=== PATIENT | female | born 1930 | race Caucasian/White ===

== ENCOUNTER 2016-10-04 10:53 | Inpatient (IN) | payer MEDICARE, OTHER ==
[~2016-10-04] VITALS: Ht 162.6 cm; Wt 85.4 kg
[~2016-10-04 10:53] MED LIST: ATOR20TA38 PO; GABA300S PO; LEVO300T5 PO; LISI10TA2 PO; METF-406 PO; SITA50TA2 PO; TRAM100T2 PO; ZETIA; [UNRECOGNIZED DRUG - CODE] PO
--- NOTE | 2016-10-04 11:31 | ERA ---
ER Documentation Chief Complaint Date/Time DATE: 10/04/16 TIME: 11:30 Chief Complaint BIB RA FROM SNF. C/O CP. HPI The patient is a 86-year-old female, presenting to the ER because of substernal chest pain that began about 2 hours prior to arrival. She denies similar symptoms previously, no radiation, not associated with dyspnea, palpitation, diaphoresis, vomiting. She denies fever, chills, neck pain, abdominal pain, vomiting, dysuria, diarrhea. She does not smoke nor drink Past medical history: History of CVA with left hemiparesis, hypertension, dyslipidemia, hypothyroidism, diabetes mellitus, dementia Past surgical history: Appendectomy ROS All systems reviewed and are negative except as per history of present illness. Medications Home Meds Reported Medications [Zetia] No Conflict Check, 10 DAILY 11/11/12 Tramadol Hcl* (Tramadol* ER) 100 Mg Tab.er.24h, 50 MG PO Q6 Y 11/11/12 Metformin Hcl* (Metformin Hcl* ER) 1,000 Mg Tab.er.24, 1000 MG PO BID 11/11/12 Lisinopril* (Lisinopril*) 10 Mg Tablet, 10 MG PO DAILY 11/11/12 Levothyroxine Sodium* (Levothyroxine Sodium*) 300 Mcg Tablet, 150 MCG PO DAILY 11/11/12 Sitagliptin* (Januvia*) 50 Mg Tablet, 50 MG PO DAILY 11/11/12 Gabapentin (GABAPENTIN) 300 Mg/6 Ml Solution, 300 MG PO BID 11/11/12 Calcium Carbonate (CALCIUM CARBONATE) 400 Mg Tab.chew, 500 MG PO Q4 Y 11/11/12 Atorvastatin Calcium* (Atorvastatin Calcium*) 20 Mg Tablet, 10 MG PO HS 11/11/12 Allergies Allergies: Coded Allergies: Penicillins (Verified Allergy, Mild, 11/14/12) PMhx/Soc History of Surgery: No Anesthesia Reaction: No Hx Neurological Disorder: No Hx Respiratory Disorders: No Hx Cardiac Disorders: Yes (TIA ,HTN, high cholesterol) Hx Psychiatric Problems: Yes (confused) Hx Alcohol Use: No Hx Substance Use: No Hx Tobacco Use: No Physical Exam Vitals Vital Signs Date Time Temp Pulse Resp B/P Pulse Ox O2 Delivery O2 Flow Rate FiO2 10/04/16 11:20 99.0 86 18 156/136 92 Physical Exam Const: No acute distress. Head: Atraumatic. Eyes: Normal Conjunctiva. ENT: Normal External Ears, Nose and Mouth. Neck: Full range of motion. No meningismus. Resp: Clear to auscultation bilaterally. Cardio: Regular rate and rhythm, no murmurs. Abd: Soft, non distended, normal bowel sounds, non tender. Skin: No petechiae or rashes. Back: No midline or flank tenderness. Ext: No cyanosis, or edema. Neur: Awake and alert. Left hemiparalysis Psych: Normal Mood and Affect. Result Diagram: 10/04/16 1200 Results 24 hrs Laboratory Tests Test 10/04/16 12:00 White Blood Count 11.110^3/ul Red Blood Count 3.7810^6/ul Hemoglobin 11.2g/dl Hematocrit 34.0% Mean Corpuscular Volume 89.9fl Mean Corpuscular Hemoglobin 29.6pg Mean Corpuscular Hemoglobin Concent 32.9g/dl Red Cell Distribution Width 15.1% Platelet Count 53623^3/UL Mean Platelet Volume 9.2fl Neutrophils % 72.5% Lymphocytes % 16.1% Monocytes % 9.5% Eosinophils % 0.7% Basophils % 0.3% Nucleated Red Blood Cells % 0.0/100WBC Neutrophils # 8.110^3/ul Lymphocytes # 1.810^3/ul Monocytes # 1.110^3/ul Eosinophils # 0.110^3/ul Basophils # 0.010^3/ul Nucleated Red Blood Cells # 0.010^3/ul Prothrombin Time 14.0Sec Prothrombin Time Ratio 1.1 INR International Normalized Ratio 1.08 Activated Partial Thromboplast Time 41.0Sec Creatine Kinase 149IU/L Creatine Kinase Index 0.3 Creatinine Kinase MB (Mass) 0.49ng/ml Troponin I < 0.012ng/ml Current Medications Medications (Trade) Dose Ordered Sig/Alisha Route PRN Reason Start Time Stop Time Status Last Admin Dose Admin Aspirin (Aspirin) 325 mg ONCE ONCE PO 10/04/16 13:30 10/04/16 13:31 Nitroglycerin (Nitroglycerin 2% Oint) 1 inch ONCE ONCE TD 10/04/16 13:30 10/04/16 13:31 Procedures/[place] [id number] Radiology Main Line: [phone] DIAGNOSTIC IMAGING REPORT Patient: JOSH DAVALOS : 1930 Age: 86 Sex: F MR #: [id number] DOS: 10/04/16 1133 Ordering MD: DARLENE ALVARENGA MD Location: E/R Room/Bed: PROCEDURE: XR Chest. CLINICAL INDICATION: Chest pain TECHNIQUE: Chest AP portable. COMPARISON: 11/11/2012 FINDINGS: The mediastinal structures are unremarkable. There is calcification of the thoracic aorta (consistent with atherosclerosis). There is mild to moderate cardiomegaly. There is mild pulmonary venous hypertension. No consolidation is identified. The pleural spaces are unremarkable. There are senescent changes of the axial skeleton. IMPRESSION: Mild to moderate cardiomegaly. Mild pulmonary venous hypertension. RPTAT: HGDB .Derrick Saeed MD, MD Date Time Electronically viewed and signed by .Derrick Saeed MD, on 10/04/2016 13:00 .B/ CC: DARLENE ALVARENGA MD MEDICAL MAKING DECISION: The patient is a 86-year-old female, with multiple cardiac risk factors, presenting with acute chest pain that is concerning for ACS. She was treated with aspirin 325 mg p.o. and 1 inch of nitroglycerin ointment with good response. The differential diagnoses considered include but are not limited to acute coronary syndrome, acute myocardial infarction, pericarditis, pulmonary embolism, aortic dissection, pneumonia, pleural effusion , pneumothorax, GERD, chest wall pain. Departure Diagnosis: Primary Impression: Chest pain Additional Impression: Anemia Condition: Stable Comments I discussed the findings with the patient. I discussed the patient with the on- call hospitalist Dr. Angelia Medina who was made aware of the lab, the treatment, the patient condition. The patient is admitted to telemetry at 1 PM DARLENE ALVARENGA MD Oct 04, 2016 11:30
[2016-10-04 12:13] LABS: ADD SCAN DIFF NO
[2016-10-04 12:16] LABS: BASOPHILS % 0.3 % (0.0-2.0); EOSINOPHILS # 0.1 10^3/ul (0.0-0.5); EOSINOPHILS % 0.7 % (0.0-7.0); HEMOGLOBIN 11.2 g/dl (12.0-16.0); LYMPHOCYTES # 1.8 10^3/ul (0.8-2.9); LYMPHOCYTES % 16.1 % (15.0-51.0); MEAN CORPUSCULAR HEMOGLOBIN 29.6 pg (29.0-33.0); MEAN CORPUSCULAR HGB CONC 32.9 g/dl (32.0-37.0); MEAN CORPUSCULAR VOLUME 89.9 fl (82.0-101.0); MEAN PLATELET VOLUME 9.2 fl (7.4-10.4); MONOCYTE # 1.1 10^3/ul (0.3-0.9); MONOCYTES % 9.5 % (0.0-11.0); NEUTROPHIL # 8.1 10^3/ul (1.6-7.5); NEUTROPHILS % 72.5 % (39.0-77.0); PLATELET COUNT 263 10^3/UL (140-415); RED BLOOD COUNT 3.78 10^6/ul (4.20-5.40); RED CELL DISTRIBUTION WIDTH 15.1 % (11.5-14.5); WHITE BLOOD COUNT 11.1 10^3/ul (4.8-10.8)
[2016-10-04 12:31] LABS: CREATINE KINASE 149 IU/L (23-200)
[2016-10-04 12:41] LABS: CK-MB 0.49 ng/ml (0.0-2.4)
[2016-10-04 12:46] LABS: TROPONIN-I < 0.012 ng/ml (0.00-0.12)
[2016-10-04 12:52] LABS: INR 1.08; PT RATIO 1.1
--- NOTE | 2016-10-04 13:00 | RADRPT ---
PROCEDURE: XR Chest. CLINICAL INDICATION: Chest pain TECHNIQUE: Chest AP portable. COMPARISON: 11/11/2012 FINDINGS: The mediastinal structures are unremarkable. There is calcification of the thoracic aorta (consiste nt with atherosclerosis). There is mild to moderate cardiomegaly. There is mild pulmonary venous h ypertension. No consolidation is identified. The pleural spaces are unremarkable. There are senes cent changes of the axial skeleton. IMPRESSION: Mild to moderate cardiomegaly. Mild pulmonary venous hypertension. RPTAT: HGDB .Derrick Saeed MD, MD Date Time Electronically viewed and signed by .Derrick Saeed MD, MD on 10/04/2016 13:00 .B/
[2016-10-04 13:13] LABS: ALBUMIN 3.8 g/dl (3.3-4.9)
[2016-10-04 13:14] LABS: POTASSIUM 4.6 mmol/L (3.5-5.1)
[2016-10-04 13:16] LABS: ALBUMIN/GLOBULIN RATIO 1.02; BILIRUBIN,INDIRECT 0.2 mg/dl (0-1.1); BILIRUBIN,TOTAL 0.2 mg/dl (0.2-1.3); CREATININE 0.88 mg/dl (0.44-1.00); TOTAL PROTEIN 7.5 g/dl (6.1-8.1)
[2016-10-04 13:17] LABS: CALCIUM 9.2 mg/dl (8.4-10.2)
[2016-10-04] MEDS ORDERED: ASPIRIN 325 MG TAB PO ONE (13:30)
[2016-10-04] MEDS ORDERED: NITROGLYCERIN 2% 1 GM OINT PKT TD ONE (13:30)
[2016-10-04] MEDS ORDERED: MULT-105 PO (13:44)
[2016-10-04] MEDS ORDERED: FER325 PO (13:44)
[2016-10-04] MEDS ORDERED: EZET10TA3 PO (13:45)
[2016-10-04] MEDS ORDERED: LEVO175T2 PO (13:46)
[2016-10-04] MEDS ORDERED: LINA5TAB PO (13:47)
[2016-10-04] MEDS ORDERED: GABA300C16 PO (13:48)
[2016-10-04] MEDS ORDERED: HEPA500021 IJ (13:48)
[2016-10-04] MEDS ORDERED: MAGN400O4 PO (13:50)
[2016-10-04] MEDS ORDERED: ACET-2047 PO (13:51)
[2016-10-04] MEDS ORDERED: SOD CHLORIDE 0.9% 500 ML IV ONE ×2 (15:00→18:00)
[2016-10-04 15:32] VITALS: TEMP 98.2
[2016-10-04] MEDS ORDERED: BISACODYL 10 MG SUPP PR PRN (16:00)
[2016-10-04] MEDS ORDERED: NITROGLYCERIN (SL) 0.4 MG TAB SL PRN (16:00)
[2016-10-04] MEDS ORDERED: ONDANSETRON 4 MG TAB PO PRN (16:00)
[2016-10-04] MEDS ORDERED: morphine 2 MG INJ IV PRN (16:00)
[2016-10-04] MEDS ORDERED: NACL 0.9% 3 ML SYG IV SCH (16:00)
[2016-10-04] MEDS ORDERED: ACETAMINOPHEN 325 MG TAB PO PRN (16:00)
[2016-10-04 16:27] LABS: CREATINE KINASE 140 IU/L (23-200)
[2016-10-04 16:36] LABS: CK-MB 0.33 ng/ml (0.0-2.4)
[2016-10-04 16:44] LABS: TROPONIN-I < 0.012 ng/ml (0.00-0.12)
[2016-10-04] MEDS ORDERED: GLUCAGON 1 MG INJ IM PRN (17:00)
[2016-10-04] MEDS ORDERED: SOD CHLORIDE 0.9% 1,000 ML IV ONE (17:00)
[2016-10-04] MEDS ORDERED: DEXTROSE 50% 50 ML SYRINGE IV PRN ×2 (17:00)
[2016-10-04] MEDS ORDERED: GLUCOSE GEL 15 GRAM TUBE PO PRN ×2 (17:00)
[2016-10-04] MEDS ORDERED: GLUCOSE GEL 15 GRAM TUBE BUCCAL PRN (17:00)
[2016-10-04 17:04] LABS: URINE BLOOD (Dip) POC Trace-intact (NEGATIVE)
[2016-10-04 17:05] LABS: URINE BLOOD (Dip) POC Trace-intact (NEGATIVE)
[2016-10-04 17:06] LABS: URINE BLOOD (Dip) POC Trace-intact (NEGATIVE)
[2016-10-04] MEDS ORDERED: CIPROFLOXACIN 400MG/D5W 200 ML IVPB ONE (17:30)
[2016-10-04] MEDS: metFORMIN (XR) 500 MG TAB PO SCH (18:00)
[2016-10-04] MEDS ORDERED: LEVOFLOXACIN 500MG/D5W (PMX) 100 ML IVPB ONE (18:30)
[2016-10-04] MEDS ORDERED: SOD CHLORIDE 0.9% 1,000 ML IV SCH (18:30)
--- NOTE | 2016-10-04 18:58 | HP ---
DATE OF ADMISSION: 10/04/2016 SHEAR OPERATOR: Dr. Raoul Underwood, supervisor fertilizer. CHIEF COMPLAINT: Shortness of breath. HISTORY OF PRESENT ILLNESS: This is an 86-year-old female with past medical history of CVA, essenti al hypertension, dyslipidemia, hypothyroidism, diabetes mellitus, neuropathy, history of thyroid nod ule, bedbound who resides at senior living facility and was transferred to [facility] secondary to complaint of having chest discomfort. Upon evaluation in the course of the emerg ency room, the patient's EKG demonstrated normal sinus rhythm, ventricular rate of 80, no ST elevati on or T inversion. No sign of ischemia. Troponin was found to be negative. The patient was treate d with a dose of aspirin, normal saline and nitroglycerin. At this time, patient denies having any chest pain, shortness of breath, nausea, vomiting, diarrhea. No headache, dizziness, lightheadednes s or any other discomfort. Notation, patient is very poor historian. Great amount of information w as obtained from the ER note and the nurse notes and previous hospital notes. PAST MEDICAL AND SURGICAL HISTORY: 1. Dyslipidemia. 2. CVA. 3. Iron deficiency anemia. 4. Neuropathy. 5. Hypothyroidism. 6. Diabetes mellitus. 7. History of hypertension. MEDICATIONS: 1. Tylenol. 2. Lipitor. 3. Zetia. 4. Ferrous sulfate. 5. Gabapentin. 6. Heparin. 7. Synthroid. 8. Tradjenta. 9. Milk of magnesia. 10. Metformin. 11. Multivitamin. ALLERGIES: 1. PENICILLIN. 2. ADHESIVE TAPE. SOCIAL HISTORY: She resides at senior living facility. Negative x3 for smoking, alcohol, illicit drugs. FAMILY HISTORY: Noncontributory secondary to advanced age. REVIEW OF SYSTEMS: As above per HPI. Positive for chest pain which has resolved by time patient ar rived to emergency room. No shortness of breath. The patient is wheelchair bound. No headache, di zziness. No change in visual acuity. No abdominal pain, no change in appetite. Otherwise, the 12 review of systems have been found to be negative. PHYSICAL EXAMINATION: VITAL SIGNS: Temperature 98.2, pulse 72, respirations 18, blood pressure 94/63 and 69/51, oxygen sa turation 95% on 2 L via nasal cannula. GENERAL APPEARANCE: The patient is lying in bed comfortably without any distress. She is awake, al ert, oriented. She is able to answer my questions properly. EYES, EARS, NOSE, THROAT: Conjunctivae, lids are normal. Pupils are normal. Extraocular normal. Hearing grossly normal. Lips, teeth and gums normal. Oral mucosa mildly dry. NECK: Supple. Trachea is midline. No lymphadenopathy. RESPIRATORY: Effort is normal. Clear to auscultation bilaterally. CARDIOVASCULAR: Normal S1, S2. Regular rhythm, rate. No murmur, no bruits, no edema. Peripheral pulses, radial pulses palpable. Capillary refill is normal. CHEST: Normal expansion of thorax during inspiration. GASTROINTESTINAL: Abdomen soft, nontender, not distended. Bowel sounds are present. No guarding, rebound. GENITOURINARY: Deferred. MUSCULOSKELETAL: Upper, lower extremities within normal limits. Trace edema, bilateral lower extre mities. NEUROLOGIC: She is awake, alert, able to follow commands. LABORATORY WORK: Sodium 135, potassium 4.6, chloride 97, bicarbonate 23, BUN 27, creatinine 0.88, g lucose 112, calcium 9.2. LFTs all within normal limits. Troponin negative x2. Globulin 3.70. Lip ase 114. WBC 11.1, hemoglobin 11.2, hematocrit 34.0, platelets 263. ELECTROCARDIOGRAM: Normal sinus rhythm. No acute ST elevation or depression, no sign of ischemia. CHEST X-RAY: Mild to moderate cardiomegaly, mild pulmonary venous hypertension. ASSESSMENT AND PLAN: 1. Atypical chest pain which has resolved. The patient has been placed on aspirin. Cardiology has been consulted. Will obtain 2D echocardiogram. Nitroglycerin. Follow cardiology recommendation. 2. Dyslipidemia. Continue statin. 3. Diabetes mellitus. Continue Tradjenta and metformin. 4. Hypotension. Place the patient on IV fluid. 5. Hypothyroidism. Continue levothyroxine, follow up thyroid panel in a.m. 6. Will continue to monitor patient closely. Further recommendations, management and treatment as per clinical course. 7. For deep venous thrombosis prophylaxis, on heparin. Dictated By: DANETTE JUAREZ MD PN/NTS Conf#: [id number] DID#: [id number]
[2016-10-04 20:26] VITALS: PULSE 74
[2016-10-04 20:33] VITALS: BP 149/64; RESP 18
--- NOTE | 2016-10-04 20:52 | CONS ---
DATE OF ADMISSION: 10/04/2016 DATE OF CONSULTATION: 10/04/2016 TYPE OF CONSULTATION: Cardiology. REFERRING PHYSICIAN: Dr. Galan REASON FOR EVALUATION: Chest pain. HISTORY OF PRESENT ILLNESS: Ms. Fernandez is an 86-year-old woman with history of hypertension, dysli pidemia, history of thyroid disease, prior history of CVA with left-sided hemiparesis and diabetes a s well as dementia, comes to the hospital for evaluation of chest pain. The patient is not a very c onsistent historian, but apparently there has been substernal chest pain lasting for about 2 hours p rior to arrival. The patient's EKG shows some nonspecific ST changes but no true signs of ischemia. For now, the patient does not appear to have ruled in for acute myocardial infarction. For now, c onservative therapy is expected. Will continue to optimize her fluid status and going to add beta b locker to her regimen if she can tolerate it. Other than that, risk stratification will be likely r equired. I'll see if the patient had recent risk stratification. If not, will consider a stress te st while she is here in the hospital. ALLERGIES: PENICILLIN. SOCIAL HISTORY: The patient does not smoke, does not drink, does not use any drugs. FAMILY HISTORY: Negative for sudden cardiac or premature coronary artery disease. MEDICATIONS AT HOME: Include: 1. Zetia 10 mg per day. 2. Tramadol 100 mg p.o. once a day. 3. Metformin 1 gram p.o. b.i.d. 4. Lisinopril 10 mg p.o. once a day. 5. Levothyroxine 150 mcg ____. 6. Sitagliptin. 7. Gabapentin. 8. Calcium carbonate. 9. Atorvastatin 20 mg p.o. once a day in addition to Zetia. REVIEW OF SYSTEMS: CONSTITUTIONAL: The patient has no fevers, no chills, no recent weight changes. HEENT: No change in vision or hearing. CARDIAC: Chest pain as described. RESPIRATORY: ____ short of breath. GASTROINTESTINAL: No nausea, vomiting, diarrhea, constipation. GENITOURINARY: No dysuria, hematuria. NEUROLOGIC: History ____ CVA. PSYCHIATRIC: History of depression. PHYSICAL EXAMINATION: VITAL SIGNS: Temperature is 98.2, heart rate 73, blood pressure 95/64. GENERAL: She is an obese woman. No acute distress. Alert, oriented times 2 to 3, somewhat aware o f her condition. HEAD: Normocephalic, atraumatic. EYES: Anicteric. NECK: Supple. JVD 6-7 cm. There is no lymphadenopathy. HEART: Regular with soft ____ murmur ____. There is no S3. LUNGS: Coarse at bases. ABDOMEN: Distended. Bowel sounds are present. There is no hepatosplenomegaly. GENITOURINARY: Intact. EXTREMITIES: No ____ trace edema. SKIN: ____. NEUROLOGICAL: She is able to move her extremities. LABORATORY DATA: White blood cells 11.1, hemoglobin 11.2, platelets 263. INR is 1.1. Sodium 135, potassium 4.6. Her BUN is 27, creatinine 0.8. Troponin is negative at 0.012. ASSESSMENT AND PLAN: 1. The patient with history of chest pain. She has multiple risk factors for coronary artery disea se. Will advise ischemic risk stratification while the patient is in the hospital. Stress test to follow. 2. Hypertension. Blood pressure modestly well controlled. Will see if she can tolerate a small do se of a beta justa. Other than that, conservative therapy and stress test advisable for now. 3. Obesity. Significant weight loss advised. 4. Diabetes. Continue diabetic optimization care per primary team. Will follow expectantly. 5. Hypertension. Blood pressure modestly well controlled. Will add beta justa now. 6. Abnormal electrocardiogram, nonspecific ST-T changes noted. Troponins are negative. Stress aníbal t to follow. I would like to thank Dr. Galan for referring this patient for my evaluation. Dictated By: MARIANNE CRISTOBAL MD ML/ADELITA Conf#: [id number] DID#: [id number]
[2016-10-04] MEDS: INSULIN ASPART [NOVOLOG] 3 ML PEN SC SCH (22:00)
[2016-10-04 22:01] LABS: AADO2 Arterial 42.6 mmHg (7.0-24.0); Allen Test ACCEPTAB; Arterial Base Excess -2.5 mmol/L (-3.0-3); Arterial COHb 0.3 % (0.0-3.0); Arterial Fraction of Oxyhgb 97.1 % (93.0-99.0); Arterial HCO3 21.6 mmol/L (22.0-26.0); Arterial MetHb 0.3 % (0.0-1.5); Arterial Total Hemglobin 10.3 g/dl (12.0-18.0); MODE NASAL CANNULA
[2016-10-04] MEDS: ATORVASTATIN 10 MG TAB PO SCH (22:05)
[2016-10-04] MEDS: GABAPENTIN 300 MG CAP PO SCH (22:05)
[2016-10-04] MEDS: HEPARIN 5,000 UNIT/0.5 ML VIAL SC SCH (22:07)
[2016-10-04 22:52] LABS: CREATINE KINASE 109 IU/L (23-200)
[2016-10-04 22:59] LABS: CK-MB 0.38 ng/ml (0.0-2.4)
[2016-10-04 23:04] VITALS: Ht 162.6 cm; Wt 85.4 kg
[2016-10-04 23:27] LABS: TROPONIN-I < 0.012 ng/ml (0.00-0.12)
[2016-10-04] MEDS: SOD CHLORIDE 0.9% 1,000 ML IV SCH (23:58)
[2016-10-05] VITALS (10 sets, daily range): BP systolic 102–164; BP diastolic 47–78; PULSE 59–73; RESP 16–18
[2016-10-05] MEDS: ACCU-CHEK XX SCH (02:00)
[2016-10-05 05:48] LABS: ADD SCAN DIFF NO
[2016-10-05 05:56] LABS: BASOPHILS % 0.1 % (0.0-2.0); EOSINOPHILS # 0.1 10^3/ul (0.0-0.5); EOSINOPHILS % 1.2 % (0.0-7.0); HEMOGLOBIN 9.3 g/dl (12.0-16.0); LYMPHOCYTES # 1.4 10^3/ul (0.8-2.9); LYMPHOCYTES % 16.5 % (15.0-51.0); MEAN CORPUSCULAR HEMOGLOBIN 29.1 pg (29.0-33.0); MEAN CORPUSCULAR VOLUME 93.8 fl (82.0-101.0); MEAN PLATELET VOLUME 9.1 fl (7.4-10.4); MONOCYTE # 0.7 10^3/ul (0.3-0.9); MONOCYTES % 8.7 % (0.0-11.0); NEUTROPHIL # 6.1 10^3/ul (1.6-7.5); NEUTROPHILS % 72.4 % (39.0-77.0); PLATELET COUNT 237 10^3/UL (140-415); RED CELL DISTRIBUTION WIDTH 15.1 % (11.5-14.5); WHITE BLOOD COUNT 8.4 10^3/ul (4.8-10.8)
[2016-10-05] MEDS: PANTOPRAZOLE (EC) 40 MG TAB PO SCH (06:00)
[2016-10-05 06:12] LABS: POTASSIUM 4.3 mmol/L (3.5-5.1)
[2016-10-05 06:14] LABS: CREATININE 0.81 mg/dl (0.44-1.00)
[2016-10-05 06:15] LABS: CALCIUM 8.1 mg/dl (8.4-10.2)
[2016-10-05 06:16] LABS: CHOL/HDL RATIO 2.7 RATIO; MAGNESIUM 1.3 mg/dl (1.7-2.5)
[2016-10-05 06:26] LABS: CK-MB 0.37 ng/ml (0.0-2.4); CREATINE KINASE 84 IU/L (23-200)
[2016-10-05 06:34] LABS: TROPONIN-I < 0.012 ng/ml (0.00-0.12)
[2016-10-05 06:40] LABS: THYROID STIMULATING HORMONE 9.62 MIU/L (0.465-4.680)
[2016-10-05] MEDS ORDERED: LEVOTHYROXINE 175 MCG TAB PO SCH (07:00)
[2016-10-05] MEDS: metFORMIN (XR) 500 MG TAB PO SCH ×2 (08:00→18:18)
[2016-10-05] MEDS: INSULIN ASPART [NOVOLOG] 3 ML PEN SC SCH ×4 (08:00→21:00)
[2016-10-05] MEDS: SOD CHLORIDE 0.9% 1,000 ML IV SCH ×2 (08:33→22:10)
[2016-10-05] MEDS: FERROUS SULFATE (EC) 325 MG TAB PO SCH (08:34)
[2016-10-05] MEDS: MAGNESIUM HYDROXIDE 30ML CUP PO SCH (08:34)
[2016-10-05] MEDS: ASPIRIN 81 MG TAB PO SCH (08:34)
[2016-10-05] MEDS: MULTIVITAMINS/MINERALS TAB PO SCH (08:34)
[2016-10-05] MEDS: GABAPENTIN 300 MG CAP PO SCH ×2 (08:34→21:30)
[2016-10-05] MEDS: LINAGLIPTIN 5 MG TABLET PO SCH (08:35)
[2016-10-05] MEDS: EZETIMIBE 10 MG TAB PO SCH (08:35)
[2016-10-05] MEDS: HEPARIN 5,000 UNIT/0.5 ML VIAL SC SCH ×2 (08:38→21:47)
--- NOTE | 2016-10-05 11:31 | PN ---
Date/Time of Note Date/Time of Note DATE: 10/05/16 TIME: 11:23 Assessment/Plan VTE Prophylaxis VTE Prophylaxis Intervention: SCD's Lines/Catheters IV Catheter Type (from Rust): Saline Lock Urinary Cath still in place: No Assessment/Plan Chief Complaint/Hosp Course ASSESSMENT AND PLAN: - Chest pain. Dr. Goldsmith is following and cardiology consultation. Cardiac enzymes are negative 3. Pending stress test today. Will obtain 2D echo to evaluate ejection fraction. - Dyslipidemia. Continue statin. - Diabetes mellitus. Continue Tradjenta and metformin. - Hypothyroidism. Continue levothyroxine. TSH is elevated will check T4 patient with history of refusing medication, would not increase the dose of levothyroxine at this time. - History of stroke with left-sided hemiplegia. Continue aspirin. - Systemic inflammatory response syndrome with leukocytosis, follow-up on urine culture. - Hypomagnesemia, will replace magnesium. Continue heparin for deep venous thrombosis prophylaxis. Further recommendations based on clinical course. Plan of care discussed with Dr. Stanley. Problems: Subjective 24 Hr Interval Summary Free Text/Dictation Patient is awake alert, confused at baseline, no nausea vomiting no fever reported per RN. Exam/Review of Systems Vital Signs Vitals Vital Signs Date Time Temp Pulse Resp B/P Pulse Ox O2 Delivery O2 Flow Rate FiO2 10/05/16 08:43 98.0 70 16 110/55 92 10/05/16 08:00 Nasal Cannula 2.0 Intake and Output 10/04/16 10/04/16 10/05/16 15:00 23:00 07:00 Intake Total 1000 ml 715 ml Balance 1000 ml 715 ml Exam Constitutional: alert, frail, obese Psych: confusion, other (Demented) Head: atraumatic, normocephalic ENMT: nl external ears & nose, nl nasal mucosa & septum Neck: supple Respiratory: clear to auscultation, wheezing Cardiovascular: nl pulses, regular rate and rhythm Gastrointestinal: non-tender, soft Genitourinary - Female: nl adnexae Musculoskeletal: nl extremities to inspection Extremities: normal pulses Neurological: confused Skin: other (Left-sided hemiplegia) Results Result Diagram: 10/05/16 0517 10/05/16 0517 Results 24 hrs Laboratory Tests Test 10/04/16 12:00 10/04/16 15:59 10/04/16 17:04 10/04/16 19:45 White Blood Count 11.1 H Red Blood Count 3.78 L Hemoglobin 11.2 L Hematocrit 34.0 L Mean Corpuscular Volume 89.9 Mean Corpuscular Hemoglobin 29.6 Mean Corpuscular Hemoglobin Concent 32.9 Red Cell Distribution Width 15.1 H Platelet Count 263 Mean Platelet Volume 9.2 Neutrophils % 72.5 Lymphocytes % 16.1 Monocytes % 9.5 Eosinophils % 0.7 Basophils % 0.3 Nucleated Red Blood Cells % 0.0 Neutrophils # 8.1 H Lymphocytes # 1.8 Monocytes # 1.1 H Eosinophils # 0.1 Basophils # 0.0 Nucleated Red Blood Cells # 0.0 Prothrombin Time 14.0 Prothrombin Time Ratio 1.1 INR International Normalized Ratio 1.08 Activated Partial Thromboplast Time 41.0 H Sodium Level 135 Potassium Level 4.6 Chloride Level 97 Carbon Dioxide Level 23 Anion Gap 20 H Blood Urea Nitrogen 27 H Creatinine 0.88 Glucose Level 112 Calcium Level 9.2 Total Bilirubin 0.2 Direct Bilirubin 0.00 Indirect Bilirubin 0.2 Aspartate Amino Transf (AST/SGOT) 20 Alanine Aminotransferase (ALT/SGPT) 17 Alkaline Phosphatase 80 Creatine Kinase 149 140 Creatine Kinase Index 0.3 0.2 Creatinine Kinase MB (Mass) 0.49 0.33 Troponin I < 0.012 < 0.012 Total Protein 7.5 Albumin 3.8 Globulin 3.70 H Albumin/Globulin Ratio 1.02 Lipase 114 Bedside Urine pH (LAB) 7.5 Bedside Urine Protein (LAB) 1+ H Bedside Urine Glucose (UA) 0.25% H Bedside Urine Ketones (LAB) Negative Bedside Urine Blood Trace-intact H Bedside Urine Nitrite (LAB) Negative Bedside Urine Leukocyte Esterase (L 1+ H Lactic Acid Level 4.2 *H Test 10/04/16 20:45 10/04/16 22:01 10/04/16 22:28 10/05/16 00:50 Blood Gas Specimen Source Blood arterial Arterial Blood Date Drawn 10/04/2016 9:45:58 PM Arterial Blood pH (Temp corrected) 7.411 Arterial Blood pCO2 (Temp correct) 34.8 L Arterial Blood pO2 (Temp corrected) 108.8 H Arterial Blood HCO3 21.6 L Arterial Blood Base Excess -2.5 Arterial Blood Oxygen Saturation 97.7 Ortega Test ACCEPTAB Arterial Blood Gas Puncture Site Left Radial Arterial Blood Carboxyhemoglobin 0.3 Arterial Blood Methemoglobin 0.3 Blood Gas A-a O2 Differential 42.6 H Oxyhemoglobin Percent 97.1 Total Hemoglobin 10.3 L Blood Gas Temperature 37.0 Blood Gas Modality NASAL CANNULA FiO2 27.0 Blood Gas Notified Whom KM Blood Gas Notified Time 10/04/2016 10:00:35 PM Lactic Acid Level 1.4 1.8 Creatine Kinase 109 Creatine Kinase Index 0.3 Creatinine Kinase MB (Mass) 0.38 Troponin I < 0.012 Bedside Glucose 98 Test 10/05/16 05:17 10/05/16 08:18 White Blood Count 8.4 # Red Blood Count 3.20 L Hemoglobin 9.3 L Hematocrit 30.0 L Mean Corpuscular Volume 93.8 Mean Corpuscular Hemoglobin 29.1 Mean Corpuscular Hemoglobin Concent 31.0 L Red Cell Distribution Width 15.1 H Platelet Count 237 Mean Platelet Volume 9.1 Neutrophils % 72.4 Lymphocytes % 16.5 Monocytes % 8.7 Eosinophils % 1.2 Basophils % 0.1 Nucleated Red Blood Cells % 0.0 Neutrophils # 6.1 Lymphocytes # 1.4 Monocytes # 0.7 Eosinophils # 0.1 Basophils # 0.0 Nucleated Red Blood Cells # 0.0 Sodium Level 133 L Potassium Level 4.3 Chloride Level 103 Carbon Dioxide Level 23 Anion Gap 11 # Blood Urea Nitrogen 18 # Creatinine 0.81 Glucose Level 119 Calcium Level 8.1 L Magnesium Level 1.3 L Creatine Kinase 84 Creatine Kinase Index 0.4 Creatinine Kinase MB (Mass) 0.37 Troponin I < 0.012 Prealbumin 12.3 L Triglycerides Level 137 Cholesterol Level 103 LDL Cholesterol, Calculated 38 HDL Cholesterol 38 Cholesterol/HDL Ratio 2.7 Thyroid Stimulating Hormone (TSH) 9.620 H Bedside Glucose 123 Medications Medications Current Medications Atorvastatin Calcium (Lipitor) 10 mg HS PO Last administered on 10/04/16 22:05 ; Admin Dose 10 MG; Start 10/04/16 at 21:00 EZETIMIBE (Zetia) 10 mg DAILY PO ; Start 10/05/16 at 09:00 Ferrous Sulfate (Ferrous Sulfate (Ec)) 325 mg DAILY PO ; Start 10/05/16 at 09:00 Gabapentin (Neurontin) 300 mg BID PO Last administered on 10/04/16 22:05; Admin Dose 300 MG; Start 10/04/16 at 21:00 Linagliptin (Tradjenta) 5 mg QAM PO ; Start 10/05/16 at 09:00 Magnesium Hydroxide (Milk Of Mag) 30 ml DAILY PO ; Start 10/05/16 at 09:00 Heparin Sodium (Porcine) (Heparin (5000 Units/0.5 ml)) 5,000 unit Q12 SC Last administered on 10/05/16t 08:38; Admin Dose 5,000 UNIT; Start 10/04/16 at 21:00 Multivitamins/ Minerals (Theragran-M) 1 tab DAILY PO ; Start 10/05/16 at 09:00 Ondansetron HCl (Zofran Tab) 4 mg Q6H PRN PO NAUSEA AND/OR VOMITING; Start 10/04 at 16:00 Aspirin (Aspirin) 81 mg DAILY PO ; Start 10/05/16 at 09:00 Nitroglycerin (Nitroglycerin (Sl Tab) 0.4 Mg) 1 tab Q5M PRN SL CHEST PAIN; Start 10/04/16 at 16:00 Acetaminophen (Tylenol Tab) 650 mg Q6H PRN PO PAIN LEVEL 1-3 OR FEVER; Start at 16:00 Morphine Sulfate (morphine) 1 mg Q4H PRN IV PAIN LEVEL 7-10; Start 10/04/16 at 16:00 Docusate Sodium (Colace) 100 mg Q12H PRN PO CONSTIPATION; Start 10/04/16 at 16: 00 Bisacodyl (Dulcolax Supp) [address] CONSTIPATION; Start 10/04/16 at 16: 00 Pantoprazole (Protonix Tab) 40 mg DAILY@06 PO ; Start 10/05/16 at 06:00 Miscellaneous Information 1 ea NOTE XX ; Start 10/04/16 at 17:00 Glucose (Glutose) 15 gm Q15M PRN PO DECREASED GLUCOSE; Start 10/04/16 at 17:00 Glucose (Glutose) 22.5 gm Q15M PRN PO DECREASED GLUCOSE; Start 10/04/16 at 17:00 Dextrose (D50w Syringe) 25 ml Q15M PRN IV DECREASED GLUCOSE; Start 10/04/16 at 17:00 Dextrose (D50w Syringe) 50 ml Q15M PRN IV DECREASED GLUCOSE; Start 10/04/16 at 17:00 Glucagon (Glucagen) 1 mg Q15M PRN IM DECREASED GLUCOSE; Start 10/04/16 at 17:00 Glucose 15 gm 15 gm Q15M PRN BUCCAL DECREASED GLUCOSE; Start 10/04/16 at 17:00 Sodium Chloride (NS) 1,000 ml @ 75 mls/hr [id number] IV Last administered on 08:33; Admin Dose 75 MLS/HR; Start 10/04/16 at 19:30 Carvedilol (Coreg) 6.25 mg BID PO Last administered on 10/04/16 22:06; Admin Dose 6.25 MG; Start 10/04/16 at 21:00 Diagnostic Test (Pha) (Accu-Chek) 1 02 XX ; Start 10/05/16 at 02:00 BECKY CARDENAS Oct 05, 2016 11:31
[2016-10-05] MEDS ORDERED: MAGNESIUM SULFATE 2 GM/50 ML 50 ML IVPB ONE (12:00)
[2016-10-05] MEDS ORDERED: REGADENOSON 0.4 MG/5 ML SYG ONE (12:19)
--- NOTE | 2016-10-05 12:52 | CONS ---
Date/Time of Note Date/Time of Note DATE: 10/05/16 TIME: 12:48 Assessment/Plan Assessment/Plan Chief Complaint/Hosp Course IMp: 1.chest pain-negative troponin x 3 2.HTN 3.HL 4.H/O CVA with L sided hemiplegia 5.DM Recc: -tele -serial ecg's -Continue zetia/statin -Continue asa -Continue coreg -Lexiscan stress test today Problems: Consultation Date/Type/Reason Admit Date/Time Oct 04, 2016 at 13:24 Initial Consult Date 10/05/2016 Type of Consultation: Cardiology Reason for Consultation chest pain Referring Provider: DANETTE JUAREZ MD Exam/Review of Systems Vital Signs Vitals Vital Signs Date Time Temp Pulse Resp B/P Pulse Ox O2 Delivery O2 Flow Rate FiO2 10/05/16 08:43 98.0 70 16 110/55 92 10/05/16 08:00 Nasal Cannula 2.0 Intake and Output 10/04/16 10/04/16 10/05/16 15:00 23:00 07:00 Intake Total 1000 ml 715 ml Balance 1000 ml 715 ml Exam Review of Systems: CONSTITUTIONAL: No fevers, chills. PULMONARY: No sob CARDIOVASCULAR: No chest pain/palpitations GASTROINTESTINAL: No nausea/vomiting. GENITOURINARY: No hematuria/dysuria. MUSCULOSKELETAL: No myagias/arthalgias. PSYCHIATRIC: The patient denies depression. NEUROLOGIC: L sided hemiplegia Constitutional: alert Psych: no complaints Head: normocephalic ENMT: mucosa pink and moist Neck: jvd (9 cm water), supple Respiratory: diminished breath sounds (at bases/B) Cardiovascular: regular rate and rhythm Gastrointestinal: non-tender, soft Musculoskeletal: muscle tone (normal) Extremities: edema (none) Neurological: other (L sided weakness) Results Result Diagram: 10/05/16 0517 10/05/16 0517 Results 24 hrs Laboratory Tests Test 10/04/16 15:59 10/04/16 17:04 10/04/16 19:45 10/04/16 20:45 Creatine Kinase 140 Creatine Kinase Index 0.2 Creatinine Kinase MB (Mass) 0.33 Troponin I < 0.012 Bedside Urine pH (LAB) 7.5 Bedside Urine Protein (LAB) 1+ H Bedside Urine Glucose (UA) 0.25% H Bedside Urine Ketones (LAB) Negative Bedside Urine Blood Trace-intact H Bedside Urine Nitrite (LAB) Negative Bedside Urine Leukocyte Esterase (L 1+ H Lactic Acid Level 4.2 *H Blood Gas Specimen Source Blood arterial Arterial Blood Date Drawn 10/04/2016 9:45:58 PM Arterial Blood pH (Temp corrected) 7.411 Arterial Blood pCO2 (Temp correct) 34.8 L Arterial Blood pO2 (Temp corrected) 108.8 H Arterial Blood HCO3 21.6 L Arterial Blood Base Excess -2.5 Arterial Blood Oxygen Saturation 97.7 Ortega Test ACCEPTAB Arterial Blood Gas Puncture Site Left Radial Arterial Blood Carboxyhemoglobin 0.3 Arterial Blood Methemoglobin 0.3 Blood Gas A-a O2 Differential 42.6 H Oxyhemoglobin Percent 97.1 Total Hemoglobin 10.3 L Blood Gas Temperature 37.0 Blood Gas Modality NASAL CANNULA FiO2 27.0 Blood Gas Notified Whom KM Blood Gas Notified Time 10/04/2016 10:00:35 PM Test 10/04/16 22:01 10/04/16 22:28 10/05/16 00:50 10/05/16 05:17 Lactic Acid Level 1.4 1.8 Creatine Kinase 109 84 Creatine Kinase Index 0.3 0.4 Creatinine Kinase MB (Mass) 0.38 0.37 Troponin I < 0.012 < 0.012 Bedside Glucose 98 White Blood Count 8.4 # Red Blood Count 3.20 L Hemoglobin 9.3 L Hematocrit 30.0 L Mean Corpuscular Volume 93.8 Mean Corpuscular Hemoglobin 29.1 Mean Corpuscular Hemoglobin Concent 31.0 L Red Cell Distribution Width 15.1 H Platelet Count 237 Mean Platelet Volume 9.1 Neutrophils % 72.4 Lymphocytes % 16.5 Monocytes % 8.7 Eosinophils % 1.2 Basophils % 0.1 Nucleated Red Blood Cells % 0.0 Neutrophils # 6.1 Lymphocytes # 1.4 Monocytes # 0.7 Eosinophils # 0.1 Basophils # 0.0 Nucleated Red Blood Cells # 0.0 Sodium Level 133 L Potassium Level 4.3 Chloride Level 103 Carbon Dioxide Level 23 Anion Gap 11 # Blood Urea Nitrogen 18 # Creatinine 0.81 Glucose Level 119 Calcium Level 8.1 L Magnesium Level 1.3 L Prealbumin 12.3 L Triglycerides Level 137 Cholesterol Level 103 LDL Cholesterol, Calculated 38 HDL Cholesterol 38 Cholesterol/HDL Ratio 2.7 Thyroid Stimulating Hormone (TSH) 9.620 H Test 10/05/16 08:18 Bedside Glucose 123 Medications Medications Current Medications Atorvastatin Calcium (Lipitor) 10 mg HS PO Last administered on 10/04/16 22:05 ; Admin Dose 10 MG; Start 10/04/16 at 21:00 EZETIMIBE (Zetia) 10 mg DAILY PO ; Start 10/05/16 at 09:00 Ferrous Sulfate (Ferrous Sulfate (Ec)) 325 mg DAILY PO ; Start 10/05/16 at 09:00 Gabapentin (Neurontin) 300 mg BID PO Last administered on 10/04/16 22:05; Admin Dose 300 MG; Start 10/04/16 at 21:00 Linagliptin (Tradjenta) 5 mg QAM PO ; Start 10/05/16 at 09:00 Magnesium Hydroxide (Milk Of Mag) 30 ml DAILY PO ; Start 10/05/16 at 09:00 Heparin Sodium (Porcine) (Heparin (5000 Units/0.5 ml)) 5,000 unit Q12 SC Last administered on 10/05/16 08:38; Admin Dose 5,000 UNIT; Start 10/04/16 at 21:00 Multivitamins/ Minerals (Theragran-M) 1 tab DAILY PO ; Start 10/05/16 at 09:00 Ondansetron HCl (Zofran Tab) 4 mg Q6H PRN PO NAUSEA AND/OR VOMITING; Start 10/04 at 16:00 Aspirin (Aspirin) 81 mg DAILY PO ; Start 10/05/16 at 09:00 Nitroglycerin (Nitroglycerin (Sl Tab) 0.4 Mg) 1 tab Q5M PRN SL CHEST PAIN; Start 10/04/16 at 16:00 Acetaminophen (Tylenol Tab) 650 mg Q6H PRN PO PAIN LEVEL 1-3 OR FEVER; Start at 16:00 Morphine Sulfate (morphine) 1 mg Q4H PRN IV PAIN LEVEL 7-10; Start 10/04/16 at 16:00 Docusate Sodium (Colace) 100 mg Q12H PRN PO CONSTIPATION; Start 10/04/16 at 16: 00 Bisacodyl (Dulcolax Supp) 10 mg DAILY PRN [place] CONSTIPATION; Start 10/04/16 at 16: 00 Pantoprazole (Protonix Tab) 40 mg DAILY@06 PO ; Start 10/05/16 at 06:00 Miscellaneous Information 1 ea NOTE XX ; Start 10/04/16 at 17:00 Glucose (Glutose) 15 gm Q15M PRN PO DECREASED GLUCOSE; Start 10/04/16 at 17:00 Glucose (Glutose) 22.5 gm Q15M PRN PO DECREASED GLUCOSE; Start 10/04/16 at 17:00 Dextrose (D50w Syringe) 25 ml Q15M PRN IV DECREASED GLUCOSE; Start 10/04/16 at 17:00 Dextrose (D50w Syringe) 50 ml Q15M PRN IV DECREASED GLUCOSE; Start 10/04/16 at 17:00 Glucagon (Glucagen) 1 mg Q15M PRN IM DECREASED GLUCOSE; Start 10/04/16 at 17:00 Glucose 15 gm 15 gm Q15M PRN BUCCAL DECREASED GLUCOSE; Start 10/04/16 at 17:00 Sodium Chloride (NS) 1,000 ml @ 75 mls/hr [id number] IV Last administered on 08:33; Admin Dose 75 MLS/HR; Start 10/04/16 at 19:30 Carvedilol (Coreg) 6.25 mg BID PO Last administered on 10/04/16 22:06; Admin Dose 6.25 MG; Start 10/04/16 at 21:00 Diagnostic Test (Pha) 1 ea 1 ea 02 XX ; Start 10/05/16 at 02:00 Magnesium Sulfate (Magnesium Sulfate 2 Gm/50 ml) 50 ml @ 25 mls/hr ONCE ONCE IVPB ; Start 10/05/16 at 12:00; Stop 10/05/16 at 13:59 AVERY VILLARREAL Oct 05, 2016 12:52
--- NOTE | 2016-10-05 13:29 | CONS ---
DATE OF ADMISSION: 10/04/2016 DATE OF CONSULTATION: 10/05/2016 REASON FOR STRESS TESTING: Chest pain, assess for ischemia. HISTORY OF PRESENT ILLNESS: Baseline vital signs and electrocardiogram: Pulse 63, blood pressure 1 10/52. Electrocardiogram reveals normal sinus rhythm, rate of 65, normal axis, normal intervals wit h diffuse nonspecific ST-T abnormalities diffusely. PROCEDURE: The patient underwent standard Lexiscan infusion protocol over 10 seconds followed by ra diolabeled tracer. The patient's test was stopped due to completion of protocol. Maximal achieved blood pressure during the test 110/63. Maximum heart rate during the test 79. ECG FINDINGS: The patient did not develop any new Lexiscan-induced ST or T-wave changes from baseli ne abnormalities. No documented PVCs. SYMPTOMS: The patient had no complaints of chest pain or shortness of breath during stress testing. IMPRESSION: 1. No Lexiscan-induced ST or T-wave changes from baseline abnormalities diagnostic for ischemia. 2. No complaints of chest pain or shortness of breath during stress testing. 3. No documented premature ventricular contractions during stress testing. 4. Report of nuclear images to follow in separate dictation. Dictated By: AVERY FORTUNE/ADELITA Conf#: [id number] DID#: [id number]
[2016-10-05] MEDS: ALBUTEROL/IPRATROPIUM (NEB) 3 ML AMP HHN SCH ×2 (14:20→19:42)
--- NOTE | 2016-10-05 15:04 | RADRPT ---
PROCEDURE: Lexiscan myocardial perfusion study CLINICAL INDICATION: 86 -year-old patient complaining of chest pain. TECHNIQUE: Lexiscan 0.4 mg intravenously separate acquisition gated myocardial perfusion SPECT usi ng Tc 99m Myoview 28.7 mCi intravenously at stress and Tc-99m Myoview, 10.7 mCi intravenously at res t was performed using the rest/stress sequence. Poststress Myoview SPECT images were obtained in th e supine position. COMPARISON: No prior studies. FINDINGS: Perfusion images reveal no evidence of perfusion defects. Lexiscan post stress gated SPECT images demonstrate no wall motion abnormalities. IMPRESSION: 1. No evidence of perfusion defects. 2. No wall motion abnormalities. 3. The left ventricle ejection fraction at stress is 68%. A call report was made to Dr. Underwood at 03:02 p.m. on October 05, 2016. RPTAT: HH .Vicki Rose MD, Date Time Electronically viewed and signed by .Vicki Rose MD, on 10/05/2016 15:03 .L/
--- NOTE | 2016-10-05 17:55 | RADRPT ---
PROCEDURE: US carotid arteries. CLINICAL INDICATION: Dizziness. TECHNIQUE: Multiple sonographic images of the carotid arteries and vertebral arteries were obtaine d utilizing mayers scale, duplex, and color-flow imaging. The images were reviewed on a PACS workstati on. COMPARISON: No prior studies are available for comparison. FINDINGS: Evaluation of the right carotid bifurcation region reveals severe atherosclerotic disease. Although velocities are normal, there is dampened flow. Evaluation of the left carotid bifurcation region reveals moderate to severe atherosclerotic disease . Although velocities are normal, there is dampened flow. There is antegrade flow within the vertebral arteries bilaterally. RIGHT CAROTID MEASUREMENTS: Common Carotid [id number] (cm/sec) Internal Carotid Artery 30 (cm/sec) External Carotid Artery 85 (cm/sec) Vertebral Artery 30 (cm/sec) Internal Carotid/Common Carotid1.2 LEFT CAROTID MEASUREMENTS: Common Carotid [id number] (cm/sec) Internal Carotid Artery 54 (cm/sec) External Carotid Artery 64 (cm/sec) Vertebral Artery 112 (cm/sec) Internal Carotid/Common Carotid1.9 Validated velocity measurements with angiographic measurements. Velocity criteria are extrapolated f rom diameter data as defined by the Society of Radiologists in Ultrasound Consensus Conference. Radi ology 2003; 229;340-346. This study does indirectly reference the measurement of the distal ICA anish meter as the denominator for stenosis measurement. IMPRESSION: 1. Severe stenosis in the right internal carotid artery. 2. Moderate to severe stenosis in the left internal carotid artery. 3. Normal antegrade flow in the vertebral arteries bilaterally. 4. Correlation with CT angiogram of the carotid arteries is advised. RPTAT: QQ SRU Consensus Conference Criteria for the Diagnosis of Carotid Artery Stenosis* Degree of Stenosis, % ICA PSV, cm/sec Plaque Estimate, % ICA/CCA PSV Ratio Normal <125 None <2.0 <50 <125 <50 <2.0 50 69 125-230 >50 2.0-4.0 >70 but less than near occlusion >230 >50 <4.0 Near occlusion High, low, or undetectable Visible Variable Total occlusion Undetectable Visible, no detectable lumen Not applicable *Cartoid artery stenosis: mayers-scale and Doppler US diagnosis. Society of Radiologists in Ultrasound Consensus Conference. Radiology 2003; 229: 340-346 .Keon Mojica MD, Date Time Electronically viewed and signed by .Keon Mojica MD, on 10/05/2016 17:54 .R/
--- NOTE | 2016-10-05 18:01 | RADRPT ---
Echocardiogram Report Patient Name: JOSH DAVALOS Gender: Female Date: 1930 Study Date: 05-Oct-2016 Print Binding Worker: Tawanna El [facility] Location: [id number] Ref. Physician: DANETTE JUAREZ Quality: Technically Difficult Study Procedures: Transthoracic echocardiogram with complete 2D, M-Mode, and doppler examination. Indications: Chest Pain. 2D/M Mode Doppler Measurement Value Normal Ranges Measurement Value Normal Ranges LVIDd 2D 3.9 3.5 - 5.6 cm AV Peak [place] 1.6 m/sec LVIDs 2D 1.7 2.1 - 4.1 cm AV Peak PG 9.7 mmHg LVPWd 2D 1.1 0.6 - 1.1 cm MV E Peak [place] 0.9 m/sec IVSd 2D 0.9 0.6 - 1.1 cm MV A Peak [place] 1.3 m/sec AoR Diam 2D 3.2 2.0 - 3.7 cm MV E/A 0.7 EDV 2D 66.0 cm3 MV Decel Time 355 msec ESV 2D 5.2 cm3 MV Decel [place] 3 LA Dimen 2D 4.0 2.3 - 4.0 cm MV E/A 0.7 TR Peak [place] 2.6 m/sec TR Peak PG 27.0 mmHg RVSP 42.0 mmHg Findings Left Ventricle: Normal left ventricular systolic function. Normal left ventricular cavity size. Mild concentric left ventricular hypertrophy. Ejection fraction is visually estimated at 60 %. Tissue Doppler/Mitral Doppler indices are consistent with impaired relaxation (Stage I diastolic dysfunction). Right Ventricle: Normal right ventricular size. Normal right ventricular systolic function. Left Atrium: There is mild enlargement of left atrium. Right Atrium: The right atrium is normal in size. Mitral Valve: Normal appearance of the mitral valve. Mild mitral annular calcification. Trace mitral regurgitation. Aortic Valve: No significant aortic stenosis or insufficiency. Aortic cusps appear mildly calcified. Tricuspid Valve: Normal appearance of the tricuspid valve. Estimated peak PA systolic pressure 42 mmHg. There is mild tricuspid regurgitation. Pulmonic Valve: Pulmonic valve not well visualized. There is mild pulmonic regurgitation. Pericardium: Normal pericardium with no significant pericardial effusion. Aorta: Normal aortic root. IVC: Dilated inferior vena cava with poor inspiratory collapse consistent with elevated right atrial pressures. Conclusions 1.Normal left ventricular systolic function. Normal left ventricular cavity size. Mild concentric left ventricular hypertrophy. Ejection fraction is visually estimated at 60 %. Tissue Doppler/Mitral Doppler indices are consistent with impaired relaxation (Stage I diastolic dysfunction). 2.Normal right ventricular size. Normal right ventricular systolic function. 3.There is mild enlargement of left atrium. 4.Normal appearance of the mitral valve. Mild mitral annular calcification. Trace mitral regurgitation. 5.Normal appearance of the tricuspid valve. Estimated peak PA systolic pressure 42 mmHg. There is mild tricuspid regurgitation. 6.Pulmonic valve not well visualized. There is mild pulmonic regurgitation. Electronically Signed By: Raoul Underwood 05-Oct-2016 18:00:41 -0700 Patient Name: JOSH DAVALOS Study Date: 05-Oct-2016 [id number]
[2016-10-05] MEDS: ATORVASTATIN 10 MG TAB PO SCH (21:30)
[2016-10-06] VITALS (12 sets, daily range): BP systolic 101–124; BP diastolic 51–79; PULSE 58–71; RESP 16–19
[2016-10-06] MEDS: ALBUTEROL/IPRATROPIUM (NEB) 3 ML AMP HHN SCH ×4 (01:32→20:00)
[2016-10-06] MEDS: ACCU-CHEK XX SCH (02:00)
[2016-10-06] MEDS: PANTOPRAZOLE (EC) 40 MG TAB PO SCH (06:40)
[2016-10-06] MEDS: LEVOTHYROXINE 100 MCG TAB PO SCH (06:40)
[2016-10-06] MEDS: INSULIN ASPART [NOVOLOG] 3 ML PEN SC SCH ×4 (08:00→21:00)
[2016-10-06] MEDS: metFORMIN (XR) 500 MG TAB PO SCH ×2 (08:15→17:43)
[2016-10-06] MEDS: ASPIRIN 81 MG TAB PO SCH (08:16)
[2016-10-06] MEDS: LINAGLIPTIN 5 MG TABLET PO SCH (08:17)
[2016-10-06] MEDS: EZETIMIBE 10 MG TAB PO SCH (08:17)
[2016-10-06] MEDS: GABAPENTIN 300 MG CAP PO SCH ×3 (08:18→21:46)
[2016-10-06] MEDS: MULTIVITAMINS/MINERALS TAB PO SCH (08:18)
[2016-10-06] MEDS: FERROUS SULFATE (EC) 325 MG TAB PO SCH (08:18)
[2016-10-06] MEDS: MAGNESIUM HYDROXIDE 30ML CUP PO SCH (08:21)
[2016-10-06] MEDS: HEPARIN 5,000 UNIT/0.5 ML VIAL SC SCH ×2 (08:31→21:48)
[2016-10-06] MEDS: SOD CHLORIDE 0.9% 1,000 ML IV SCH (11:48)
--- NOTE | 2016-10-06 13:05 | CONS ---
Date/Time of Note Date/Time of Note DATE: 10/06/16 TIME: 13:03 Assessment/Plan Assessment/Plan Chief Complaint/Hosp Course IMp: 1.chest pain-negative troponin x 3. No ischemia by lexiscan. NL EF by echo this admit 2.HTN 3.HL 4.H/O CVA with L sided hemiplegia 5.DM Recc: -tele -serial ecg's -Continue zetia/statin -Continue asa -Continue coreg -OK for d/c planning for cardiac standpoint Problems: Consultation Date/Type/Reason Admit Date/Time Oct 04, 2016 at 13:24 Initial Consult Date 10/05/2016 Type of Consultation: Cardiology Reason for Consultation chest pain Referring Provider: DANETTE JUAREZ MD Exam/Review of Systems Vital Signs Vitals Vital Signs Date Time Temp Pulse Resp B/P Pulse Ox O2 Delivery O2 Flow Rate FiO2 10/06/16 12:00 61 10/06/16 11:58 98.2 19 112/54 95 10/06/16 08:51 3.0 10/06/16 08:00 Nasal Cannula 10/06/16 01:32 21 Intake and Output 10/05/16 10/05/16 10/06/16 15:00 23:00 07:00 Intake Total 300 ml 990 ml Balance 300 ml 990 ml Exam Review of Systems: CONSTITUTIONAL: No fevers, chills. PULMONARY: No sob CARDIOVASCULAR: No chest pain/palpitations GASTROINTESTINAL: No nausea/vomiting. GENITOURINARY: No hematuria/dysuria. MUSCULOSKELETAL: No myagias/arthalgias. PSYCHIATRIC: The patient denies depression. NEUROLOGIC: L sided weakness Constitutional: alert Psych: no complaints Head: normocephalic ENMT: mucosa pink and moist Neck: jvd, supple Respiratory: diminished breath sounds Cardiovascular: regular rate and rhythm Gastrointestinal: non-tender, soft Extremities: edema (none) Neurological: other (L sided weakness) Results Result Diagram: 10/05/1651610/05/16 05 Results 24 hrs Laboratory Tests Test 10/05/16 14:27 10/05/16 17:45 10/05/16 21:26 10/06/16 07:43 Bedside Glucose 120 120 133 132 Test 10/06/16 11:34 Bedside Glucose 144 Medications Medications Current Medications Atorvastatin Calcium (Lipitor) 10 mg HS PO Last administered on 10/05/16 21:30 ; Admin Dose 10 MG; Start 10/04/16 at 21:00 EZETIMIBE (Zetia) 10 mg DAILY PO Last administered on 10/06/16 08:17; Admin Dose 10 MG; Start 10/05/16 at 09:00 Ferrous Sulfate (Ferrous Sulfate (Ec)) 325 mg DAILY PO Last administered on 10/06 08:18; Admin Dose 325 MG; Start 10/05/16 at 09:00 Gabapentin (Neurontin) 300 mg BID PO Last administered on 10/06/16 08:18; Admin Dose 300 MG; Start 10/04/16 at 21:00 Linagliptin (Tradjenta) 5 mg QAM PO Last administered on 10/06/16 08:17; Admin Dose 5 MG; Start 10/05/16 at 09:00 Magnesium Hydroxide (Milk Of Mag) 30 ml DAILY PO Last administered on 10/06/16 08:21; Admin Dose 30 ML; Start 10/05/16 at 09:00 Heparin Sodium (Porcine) (Heparin (5000 Units/0.5 ml)) 5,000 unit Q12 SC Last administered on 10/06/16 08:31; Admin Dose 5,000 UNIT; Start 10/04/16 at 21:00 Multivitamins/ Minerals (Theragran-M) 1 tab DAILY PO Last administered on 08:18; Admin Dose 1 TAB; Start 10/05/16 at 09:00 Ondansetron HCl (Zofran Tab) 4 mg Q6H PRN PO NAUSEA AND/OR VOMITING; Start 10/04 at 16:00 Aspirin (Aspirin) 81 mg DAILY PO Last administered on 10/06/16 08:16; Admin Dose 81 MG; Start 10/05/16 at 09:00 Nitroglycerin (Nitroglycerin (Sl Tab) 0.4 Mg) 1 tab Q5M PRN SL CHEST PAIN; Start 10/04/16 at 16:00 Acetaminophen (Tylenol Tab) 650 mg Q6H PRN PO PAIN LEVEL 1-3 OR FEVER; Start at 16:00 Morphine Sulfate (morphine) 1 mg Q4H PRN IV PAIN LEVEL 7-10; Start 10/04/16 at 16:00 Docusate Sodium (Colace) 100 mg Q12H PRN PO CONSTIPATION; Start 10/04/16 at 16: 00 Bisacodyl (Dulcolax Supp) 10 mg DAILY PRN [place] CONSTIPATION; Start 10/04/16 at 16: 00 Pantoprazole (Protonix Tab) 40 mg DAILY@06 PO Last administered on 10/06/16 06: 40; Admin Dose 40 MG; Start 10/05/16 at 06:00 Miscellaneous Information 1 ea NOTE XX ; Start 10/04/16 at 17:00 Glucose (Glutose) 15 gm Q15M PRN PO DECREASED GLUCOSE; Start 10/04/16 at 17:00 Glucose (Glutose) 22.5 gm Q15M PRN PO DECREASED GLUCOSE; Start 10/04/16 at 17:00 Dextrose (D50w Syringe) 25 ml Q15M PRN IV DECREASED GLUCOSE; Start 10/04/16 at 17:00 Dextrose (D50w Syringe) 50 ml Q15M PRN IV DECREASED GLUCOSE; Start 10/04/16 at 17:00 Glucagon (Glucagen) 1 mg Q15M PRN IM DECREASED GLUCOSE; Start 10/04/16 at 17:00 Glucose 15 gm 15 gm Q15M PRN BUCCAL DECREASED GLUCOSE; Start 10/04/16 at 17:00 Sodium Chloride (NS) 1,000 ml @ 75 mls/hr [id number] IV Last administered on 11:48; Admin Dose 75 MLS/HR; Start 10/04/16 at 19:30 Carvedilol (Coreg) 6.25 mg BID PO Last administered on 10/06/16 08:18; Admin Dose 6.25 MG; Start 10/04/16 at 21:00 Diagnostic Test (Pha) (Accu-Chek) 1 ea 02 XX ; Start 10/05/16 at 02:00 AVERY VILLARREAL Oct 06, 2016 13:05
[2016-10-06] MEDS: LEVOFLOXACIN 500MG/D5W (PMX) 100 ML IVPB SCH (16:07)
--- NOTE | 2016-10-06 16:55 | PN ---
Date/Time of Note Date/Time of Note DATE: 10/06/16 TIME: 16:53 Assessment/Plan VTE Prophylaxis VTE Prophylaxis Intervention: other Lines/Catheters IV [facility]from [facility]): Peripheral IV Urinary Cath still in place: No Assessment/Plan Assessment/Plan - Chest pain. Dr. Goldsmith is following and cardiology consultation. Cardiac enzymes are negative 3. Pending stress test today. Will obtain 2D echo to evaluate ejection fraction. - Dyslipidemia. Continue statin. - Diabetes mellitus. Continue Tradjenta and metformin. - Hypothyroidism. Continue levothyroxine. TSH is elevated will check T4 patient with history of refusing medication, would not increase the dose of levothyroxine at this time. - History of stroke with left-sided hemiplegia. Continue aspirin. - Systemic inflammatory response syndrome with leukocytosis, follow-up on urine culture. - Hypomagnesemia, magnesium replaced on 10/05. no mag level today. - Ecoli - contact isolation, Levaquin Continue heparin for deep venous thrombosis prophylaxis. Further recommendations based on clinical course. Plan of care discussed with Dr. Stanley. Subjective 24 Hr Interval Summary Free Text/Dictation NAD, RESTING, denies any chest pain. dw staff- refuses blood draw at times. ENT: no complaints Respiratory: no complaints Cardiovascular: no complaints Gastrointestinal: no complaints Genitourinary: no complaints Musculoskeletal: no complaints Skin: no complaints Neurologic: no complaints Endocrine: no complaints Lymphatic: no complaints Exam/Review of Systems Vital Signs Vitals Vital Signs Date Time Temp Pulse Resp B/P Pulse Ox O2 Delivery O2 Flow Rate FiO2 10/06/16 16:00 59 10/06/16 15:52 97.9 19 101/51 95 10/06/16 08:51 3.0 10/06/16 08:00 Nasal Cannula 10/06/16 01:32 21 Intake and Output 10/05/16 10/05/16 10/06/16 15:00 23:00 07:00 Intake Total 300 ml 990 ml Balance 300 ml 990 ml Exam Constitutional: alert, obese, oriented Psych: nl mood/affect Head: atraumatic Eyes: EOMI, PERRL, nl sclera ENMT: nl external ears & nose Neck: non-tender Respiratory: clear to auscultation Cardiovascular: nl pulses Gastrointestinal: other, soft Musculoskeletal: nl extremities to inspection Extremities: normal pulses Neurological: nl mental status, nl speech Skin: nl turgor Lymph: nontender Results Result Diagram: 10/05/1651610/05/16 0517 Results 24 hrs Laboratory Tests Test 10/05/16 17:45 10/05/16 21:26 10/06/16 07:43 10/06/16 11:34 Bedside Glucose 120 133 132 144 Medications Medications Current Medications Atorvastatin Calcium (Lipitor) 10 mg HS PO Last administered on 10/05/16 21:30 ; Admin Dose 10 MG; Start 10/04/16 at 21:00 EZETIMIBE (Zetia) 10 mg DAILY PO Last administered on 10/06/16 08:17; Admin Dose 10 MG; Start 10/05/16 at 09:00 Ferrous Sulfate (Ferrous Sulfate (Ec)) 325 mg DAILY PO Last administered on 10/06 08:18; Admin Dose 325 MG; Start 10/05/16 at 09:00 Gabapentin (Neurontin) 300 mg BID PO Last administered on 10/06/16 08:18; Admin Dose 300 MG; Start 10/04/16 at 21:00 Linagliptin (Tradjenta) 5 mg QAM PO Last administered on 10/06/16 08:17; Admin Dose 5 MG; Start 10/05/16 at 09:00 Magnesium Hydroxide (Milk Of Mag) 30 ml DAILY PO Last administered on 10/06/16 08:21; Admin Dose 30 ML; Start 10/05/16 at 09:00 Heparin Sodium (Porcine) (Heparin (5000 Units/0.5 ml)) 5,000 unit Q12 SC Last administered on 10/06/16 08:31; Admin Dose 5,000 UNIT; Start 10/04/16 at 21:00 Multivitamins/ Minerals (Theragran-M) 1 tab DAILY PO Last administered on 08:18; Admin Dose 1 TAB; Start 10/05/16 at 09:00 Ondansetron HCl (Zofran Tab) 4 mg Q6H PRN PO NAUSEA AND/OR VOMITING; Start 10/04 at 16:00 Aspirin (Aspirin) 81 mg DAILY PO Last administered on 10/06/16 08:16; Admin Dose 81 MG; Start 10/05/16 at 09:00 Nitroglycerin (Nitroglycerin (Sl Tab) 0.4 Mg) 1 tab Q5M PRN SL CHEST PAIN; Start 10/04/16 at 16:00 Acetaminophen (Tylenol Tab) 650 mg Q6H PRN PO PAIN LEVEL 1-3 OR FEVER; Start at 16:00 Morphine Sulfate (morphine) 1 mg Q4H PRN IV PAIN LEVEL 7-10; Start 10/04/16 at 16:00 Docusate Sodium (Colace) 100 mg Q12H PRN PO CONSTIPATION; Start 10/04/16 at 16: 00 Bisacodyl (Dulcolax Supp) 10 mg DAILY PRN [place] CONSTIPATION; Start 10/04/16 at 16: 00 Pantoprazole (Protonix Tab) 40 mg DAILY@06 PO Last administered on 10/06/16 06: 40; Admin Dose 40 MG; Start 10/05/16 at 06:00 Miscellaneous Information 1 ea NOTE XX ; Start 10/04/16 at 17:00 Glucose (Glutose) 15 gm Q15M PRN PO DECREASED GLUCOSE; Start 10/04/16 at 17:00 Glucose (Glutose) 22.5 gm Q15M PRN PO DECREASED GLUCOSE; Start 10/04/16 at 17:00 Dextrose (D50w Syringe) 25 ml Q15M PRN IV DECREASED GLUCOSE; Start 10/04/16 at 17:00 Dextrose (D50w Syringe) 50 ml Q15M PRN IV DECREASED GLUCOSE; Start 10/04/16 at 17:00 Glucagon (Glucagen) 1 mg Q15M PRN IM DECREASED GLUCOSE; Start 10/04/16 at 17:00 Glucose 15 gm 15 gm Q15M PRN BUCCAL DECREASED GLUCOSE; Start 10/04/16 at 17:00 Sodium Chloride (NS) 1,000 ml @ 75 mls/hr [id number] IV Last administered on 11:48; Admin Dose 75 MLS/HR; Start 10/04/16 at 19:30 Carvedilol (Coreg) 6.25 mg BID PO Last administered on 10/06/16 08:18; Admin Dose 6.25 MG; Start 10/04/16 at 21:00 Diagnostic Test (Pha) 1 ea 1 ea 02 XX ; Start 10/05/16 at 02:00 Levofloxacin/ Dextrose (Levaquin 500mg/ D5W 100 ml (Pmx)) 100 ml @ 100 mls/hr Q24H IVPB Last administered on 10/06/16t 16:07; Admin Dose 100 MLS/HR; Start 10/06/16 at 15:30 FERMÍN PORTILLO Oct 06, 2016 16:55
[2016-10-06 19:05] LABS: ADD SCAN DIFF NO
[2016-10-06 19:09] LABS: BASOPHILS % 0.1 % (0.0-2.0); EOSINOPHILS # 0.1 10^3/ul (0.0-0.5); EOSINOPHILS % 1.3 % (0.0-7.0); HEMOGLOBIN 9.7 g/dl (12.0-16.0); LYMPHOCYTES # 1.2 10^3/ul (0.8-2.9); LYMPHOCYTES % 13.8 % (15.0-51.0); MEAN CORPUSCULAR HGB CONC 31.3 g/dl (32.0-37.0); MEAN CORPUSCULAR VOLUME 92.5 fl (82.0-101.0); MEAN PLATELET VOLUME 8.7 fl (7.4-10.4); MONOCYTE # 0.9 10^3/ul (0.3-0.9); NEUTROPHIL # 6.6 10^3/ul (1.6-7.5); NEUTROPHILS % 73.7 % (39.0-77.0); PLATELET COUNT 238 10^3/UL (140-415); RED BLOOD COUNT 3.35 10^6/ul (4.20-5.40); RED CELL DISTRIBUTION WIDTH 14.9 % (11.5-14.5); WHITE BLOOD COUNT 8.9 10^3/ul (4.8-10.8)
[2016-10-06 19:21] LABS: CALCIUM 7.9 mg/dl (8.4-10.2); CREATININE 0.89 mg/dl (0.44-1.00); POTASSIUM 4.3 mmol/L (3.5-5.1)
[2016-10-06] MEDS: ATORVASTATIN 10 MG TAB PO SCH ×2 (21:00→21:46)
[2016-10-07] VITALS (10 sets, daily range): BP systolic 101–160; BP diastolic 59–67; PULSE 66–70; RESP 15–21
[2016-10-07] MEDS: SOD CHLORIDE 0.9% 1,000 ML IV SCH ×2 (00:32→15:54)
[2016-10-07] MEDS: ALBUTEROL/IPRATROPIUM (NEB) 3 ML AMP HHN SCH ×4 (01:11→20:16)
[2016-10-07] MEDS: ACCU-CHEK XX SCH (02:00)
[2016-10-07] MEDS: PANTOPRAZOLE (EC) 40 MG TAB PO SCH ×2 (05:26→05:31)
[2016-10-07] MEDS: LEVOTHYROXINE 100 MCG TAB PO SCH (07:00)
[2016-10-07] MEDS: INSULIN ASPART [NOVOLOG] 3 ML PEN SC SCH ×4 (08:00→20:30)
[2016-10-07 08:32] LABS: ADD SCAN DIFF NO
[2016-10-07 08:34] LABS: BASOPHILS % 0.2 % (0.0-2.0); EOSINOPHILS # 0.1 10^3/ul (0.0-0.5); EOSINOPHILS % 1.5 % (0.0-7.0); HEMATOCRIT 31.8 % (37.0-47.0); LYMPHOCYTES # 1.3 10^3/ul (0.8-2.9); LYMPHOCYTES % 14.4 % (15.0-51.0); MEAN CORPUSCULAR HEMOGLOBIN 29.4 pg (29.0-33.0); MEAN CORPUSCULAR HGB CONC 31.4 g/dl (32.0-37.0); MEAN CORPUSCULAR VOLUME 93.5 fl (82.0-101.0); MEAN PLATELET VOLUME 9.5 fl (7.4-10.4); MONOCYTE # 0.9 10^3/ul (0.3-0.9); MONOCYTES % 10.3 % (0.0-11.0); NEUTROPHIL # 6.3 10^3/ul (1.6-7.5); NEUTROPHILS % 72.9 % (39.0-77.0); PLATELET COUNT 263 10^3/UL (140-415); WHITE BLOOD COUNT 8.7 10^3/ul (4.8-10.8)
[2016-10-07 08:54] LABS: CREATININE 0.8 mg/dl (0.44-1.00); MAGNESIUM 1.6 mg/dl (1.7-2.5); POTASSIUM 4.4 mmol/L (3.5-5.1)
[2016-10-07] MEDS: MAGNESIUM HYDROXIDE 30ML CUP PO SCH (09:00)
[2016-10-07] MEDS: HEPARIN 5,000 UNIT/0.5 ML VIAL SC SCH ×2 (09:00→20:34)
[2016-10-07] MEDS: metFORMIN (XR) 500 MG TAB PO SCH ×2 (10:40→18:44)
[2016-10-07] MEDS: LINAGLIPTIN 5 MG TABLET PO SCH (10:40)
[2016-10-07] MEDS: EZETIMIBE 10 MG TAB PO SCH (10:49)
[2016-10-07] MEDS: MULTIVITAMINS/MINERALS TAB PO SCH (10:50)
[2016-10-07] MEDS: GABAPENTIN 300 MG CAP PO SCH ×2 (10:50→20:28)
[2016-10-07] MEDS: ASPIRIN 81 MG TAB PO SCH (10:51)
[2016-10-07] MEDS: FERROUS SULFATE (EC) 325 MG TAB PO SCH (10:51)
[2016-10-07] MEDS: LEVOFLOXACIN 500MG/D5W (PMX) 100 ML IVPB SCH (15:56)
--- NOTE | 2016-10-07 16:04 | CONS ---
Date/Time of Note Date/Time of Note DATE: 10/07/16 TIME: 16:02 Assessment/Plan Assessment/Plan Chief Complaint/Hosp Course IMp: 1.chest pain-negative troponin x 3. No ischemia by lexiscan. NL EF by echo this admit 2.HTN 3.HL 4.H/O CVA with L sided hemiplegia 5.DM Recc: -tele -Continue zetia/statin -Continue asa -Continue coreg -OK for d/c planning from cardiac standpoint Problems: Consultation Date/Type/Reason Admit Date/Time Oct 06, 2016 at 15:20 Initial Consult Date 10/05/2016 Type of Consultation: Cardiology Reason for Consultation chest pain Referring Provider: DANETTE JUAREZ MD Exam/Review of Systems Vital Signs Vitals Vital Signs Date Time Temp Pulse Resp B/P Pulse Ox O2 Delivery O2 Flow Rate FiO2 10/07/16 15:27 98.0 66 127/ 10/07/16 15:27 15 92 10/06/16 20:55 3.0 10/06/16 20:00 Nasal Cannula 10/06/16 01:32 21 Intake and Output 10/06/16 10/06/16 10/07/16 14:59 22:59 06:59 Intake Total 500 ml 900 ml Balance 500 ml 900 ml Exam Review of Systems: CONSTITUTIONAL: No fevers, chills. PULMONARY: No sob CARDIOVASCULAR: No chest pain/palpitations GASTROINTESTINAL: No nausea/vomiting. GENITOURINARY: No hematuria/dysuria. MUSCULOSKELETAL: No myagias/arthalgias. PSYCHIATRIC: The patient denies depression. NEUROLOGIC: lethargic Constitutional: alert Psych: no complaints Head: normocephalic ENMT: mucosa pink and moist Neck: jvd (8 cm water), supple Respiratory: diminished breath sounds (at bases/B) Cardiovascular: regular rate and rhythm Gastrointestinal: non-tender, soft Musculoskeletal: muscle tone (normal) Extremities: edema (none) Neurological: other (No focal deficits) Results Result Diagram: 10/07/16 0643 10/07/16 0640 Results 24 hrs Laboratory Tests Test 10/06/16 17:12 10/06/16 18:55 10/06/16 20:59 10/07/16 06:40 Bedside Glucose 126 135 White Blood Count 8.9 Red Blood Count 3.35 L Hemoglobin 9.7 L Hematocrit 31.0 L Mean Corpuscular Volume 92.5 Mean Corpuscular Hemoglobin 29.0 Mean Corpuscular Hemoglobin Concent 31.3 L Red Cell Distribution Width 14.9 H Platelet Count 238 Mean Platelet Volume 8.7 Neutrophils % 73.7 Lymphocytes % 13.8 L Monocytes % 10.0 Eosinophils % 1.3 Basophils % 0.1 Nucleated Red Blood Cells % 0.0 Neutrophils # 6.6 Lymphocytes # 1.2 Monocytes # 0.9 Eosinophils # 0.1 Basophils # 0.0 Nucleated Red Blood Cells # 0.0 Sodium Level 132 L 133 L Potassium Level 4.3 4.4 Chloride Level 104 105 Carbon Dioxide Level 24 22 Anion Gap 8 10 Blood Urea Nitrogen 16 14 Creatinine 0.89 0.80 Glucose Level 159 116 # Calcium Level 7.9 L 8.0 L Free Thyroxine 0.94 Magnesium Level 1.6 L Test 10/07/16 06:43 10/07/16 08:16 10/07/16 12:18 White Blood Count 8.7 Red Blood Count 3.40 L Hemoglobin 10.0 L Hematocrit 31.8 L Mean Corpuscular Volume 93.5 Mean Corpuscular Hemoglobin 29.4 Mean Corpuscular Hemoglobin Concent 31.4 L Red Cell Distribution Width 15.0 H Platelet Count 263 Mean Platelet Volume 9.5 Neutrophils % 72.9 Lymphocytes % 14.4 L Monocytes % 10.3 Eosinophils % 1.5 Basophils % 0.2 Nucleated Red Blood Cells % 0.0 Neutrophils # 6.3 Lymphocytes # 1.3 Monocytes # 0.9 Eosinophils # 0.1 Basophils # 0.0 Nucleated Red Blood Cells # 0.0 Bedside Glucose 122 164 Medications Medications Current Medications Atorvastatin Calcium (Lipitor) 10 mg HS PO Last administered on 10/05/16 21:30 ; Admin Dose 10 MG; Start 10/04/16 at 21:00 EZETIMIBE (Zetia) 10 mg DAILY PO Last administered on 10/07/16 10:49; Admin Dose 10 MG; Start 10/05/16 at 09:00 Ferrous Sulfate (Ferrous Sulfate (Ec)) 325 mg DAILY PO Last administered on 10/07 10:51; Admin Dose 325 MG; Start 10/05/16 at 09:00 Gabapentin (Neurontin) 300 mg BID PO Last administered on 10/07/16 10:50; Admin Dose 300 MG; Start 10/04/16 at 21:00 Linagliptin (Tradjenta) 5 mg QAM PO Last administered on 10/07/16 10:40; Admin Dose 5 MG; Start 10/05/16 at 09:00 Magnesium Hydroxide (Milk Of Mag) 30 ml DAILY PO Last administered on 10/06/16 08:21; Admin Dose 30 ML; Start 10/05/16 at 09:00 Heparin Sodium (Porcine) (Heparin (5000 Units/0.5 ml)) 5,000 unit Q12 SC Last administered on 10/06/16 21:48; Admin Dose 5,000 UNIT; Start 10/04/16 at 21:00 Multivitamins/ Minerals (Theragran-M) 1 tab DAILY PO Last administered on 10:50; Admin Dose 1 TAB; Start 10/05/16 at 09:00 Ondansetron HCl (Zofran Tab) 4 mg Q6H PRN PO NAUSEA AND/OR VOMITING; Start 10/04 at 16:00 Aspirin (Aspirin) 81 mg DAILY PO Last administered on 10/07/16 10:51; Admin Dose 81 MG; Start 10/05/16 at 09:00 Nitroglycerin (Nitroglycerin (Sl Tab) 0.4 Mg) 1 tab Q5M PRN SL CHEST PAIN; Start 10/04/16 at 16:00 Acetaminophen (Tylenol Tab) 650 mg Q6H PRN PO PAIN LEVEL 1-3 OR FEVER; Start at 16:00 Morphine Sulfate (morphine) 1 mg Q4H PRN IV PAIN LEVEL 7-10; Start 10/04/16 at 16:00 Docusate Sodium (Colace) 100 mg Q12H PRN PO CONSTIPATION; Start 10/04/16 at 16: 00 Bisacodyl (Dulcolax Supp) 10 mg DAILY PRN [place] CONSTIPATION; Start 10/04/16 at 16: 00 Pantoprazole (Protonix Tab) 40 mg DAILY@06 PO Last administered on 10/06/16 06: 40; Admin Dose 40 MG; Start 10/05/16 at 06:00 Miscellaneous Information 1 ea NOTE XX ; Start 10/04/16 at 17:00 Glucose (Glutose) 15 gm Q15M PRN PO DECREASED GLUCOSE; Start 10/04/16 at 17:00 Glucose (Glutose) 22.5 gm Q15M PRN PO DECREASED GLUCOSE; Start 10/04/16 at 17:00 Dextrose (D50w Syringe) 25 ml Q15M PRN IV DECREASED GLUCOSE; Start 10/04/16 at 17:00 Dextrose (D50w Syringe) 50 ml Q15M PRN IV DECREASED GLUCOSE; Start 10/04/16 at 17:00 Glucagon (Glucagen) 1 mg Q15M PRN IM DECREASED GLUCOSE; Start 10/04/16 at 17:00 Glucose 15 gm 15 gm Q15M PRN BUCCAL DECREASED GLUCOSE; Start 10/04/16 at 17:00 Sodium Chloride (NS) 1,000 ml @ 75 mls/hr [id number] IV Last administered on 15:54; Admin Dose 75 MLS/HR; Start 10/04/16 at 19:30 Carvedilol (Coreg) 6.25 mg BID PO Last administered on 10/07/16 10:41; Admin Dose 6.25 MG; Start 10/04/16 at 21:00 Diagnostic Test (Pha) 1 ea 1 ea 02 XX ; Start 10/05/16 at 02:00 Levofloxacin/ Dextrose (Levaquin 500mg/ D5W 100 ml (Pmx)) 100 ml @ 100 mls/hr Q24H IVPB Last administered on 10/07/16 15:56; Admin Dose 100 MLS/HR; Start 10/06/16 at 15:30 AVERY VILLARREAL Oct 07, 2016 16:04
--- NOTE | 2016-10-07 17:14 | PN ---
Date/Time of Note Date/Time of Note DATE: 10/07/16 TIME: 17:12 Assessment/Plan VTE Prophylaxis VTE Prophylaxis Intervention: SCD's Lines/Catheters [facility] Urinary Cath still in place: No Assessment/Plan Chief Complaint/Hosp Course ASSESSMENT AND PLAN: - Chest pain. Dr. Goldsmith is following and cardiology consultation. Cardiac enzymes are negative 3. Negative stress test. - Dyslipidemia. Continue statin. - Diabetes mellitus. Continue Tradjenta and metformin. - Hypothyroidism. Continue levothyroxine. TSH is elevated will check T4 patient with history of refusing medication, would not increase the dose of levothyroxine at this time. - History of stroke with left-sided hemiplegia. Continue aspirin. - Systemic inflammatory response syndrome with leukocytosis, follow-up on urine culture. - Hypomagnesemia, will replace magnesium. - Bilateral carotid stenosis. Dr Fernandez is asked to see pt in vascular surgery consultation. Continue heparin for deep venous thrombosis prophylaxis. Further recommendations based on clinical course. Plan of care discussed with Dr. Stanley. Problems: Subjective 24 Hr Interval Summary Free Text/Dictation Remained afebrile, awake, alert. Exam/Review of Systems Vital Signs Vitals Vital Signs Date Time Temp Pulse Resp B/P Pulse Ox O2 Delivery O2 Flow Rate FiO2 10/07/16 16:56 3.0 10/07/16 16:32 70 10/07/16 15:27 98.0 127/ 10/07/16 15:27 15 92 10/07/16 14:00 Nasal Cannula 10/06/16 01:32 21 Intake and Output 10/06/16 10/06/16 10/07/16 15:00 23:00 07:00 Intake Total 500 ml 900 ml Balance 500 ml 900 ml Exam Constitutional: alert, frail, obese Psych: confusion, other (Demented) Head: atraumatic, normocephalic ENMT: nl external ears & nose, nl nasal mucosa & septum Neck: supple Respiratory: clear to auscultation, wheezing Cardiovascular: nl pulses, regular rate and rhythm Gastrointestinal: non-tender, soft Genitourinary - Female: nl adnexae Musculoskeletal: nl extremities to inspection Extremities: normal pulses Neurological: confused Skin: other (Left-sided hemiplegia) Results Result Diagram: 10/07/16 0643 10/07/16 0640 Results 24 hrs Laboratory Tests Test 10/06/16 18:55 10/06/16 20:59 10/07/16 06:40 10/07/16 06:43 White Blood Count 8.9 8.7 Red Blood Count 3.35 L 3.40 L Hemoglobin 9.7 L 10.0 L Hematocrit 31.0 L 31.8 L Mean Corpuscular Volume 92.5 93.5 Mean Corpuscular Hemoglobin 29.0 29.4 Mean Corpuscular Hemoglobin Concent 31.3 L 31.4 L Red Cell Distribution Width 14.9 H 15.0 H Platelet Count 238 263 Mean Platelet Volume 8.7 9.5 Neutrophils % 73.7 72.9 Lymphocytes % 13.8 L 14.4 L Monocytes % 10.0 10.3 Eosinophils % 1.3 1.5 Basophils % 0.1 0.2 Nucleated Red Blood Cells % 0.0 0.0 Neutrophils # 6.6 6.3 Lymphocytes # 1.2 1.3 Monocytes # 0.9 0.9 Eosinophils # 0.1 0.1 Basophils # 0.0 0.0 Nucleated Red Blood Cells # 0.0 0.0 Sodium Level 132 L 133 L Potassium Level 4.3 4.4 Chloride Level 104 105 Carbon Dioxide Level 24 22 Anion Gap 8 10 Blood Urea Nitrogen 16 14 Creatinine 0.89 0.80 Glucose Level 159 116 # Calcium Level 7.9 L 8.0 L Free Thyroxine 0.94 Bedside Glucose 135 Magnesium Level 1.6 L Test 10/07/16 08:16 10/07/16 12:18 Bedside Glucose 122 164 Medications Medications Current Medications Atorvastatin Calcium (Lipitor) 10 mg HS PO Last administered on 10/05/16 21:30 ; Admin Dose 10 MG; Start 10/04/16 at 21:00 EZETIMIBE (Zetia) 10 mg DAILY PO Last administered on 10/07/16 10:49; Admin Dose 10 MG; Start 10/05/16 at 09:00 Ferrous Sulfate (Ferrous Sulfate (Ec)) 325 mg DAILY PO Last administered on 10/07 10:51; Admin Dose 325 MG; Start 10/05/16 at 09:00 Gabapentin (Neurontin) 300 mg BID PO Last administered on 10/07/16 10:50; Admin Dose 300 MG; Start 10/04/16 at 21:00 Linagliptin (Tradjenta) 5 mg QAM PO Last administered on 10/07/16 10:40; Admin Dose 5 MG; Start 10/05/16 at 09:00 Magnesium Hydroxide (Milk Of Mag) 30 ml DAILY PO Last administered on 10/06/16 08:21; Admin Dose 30 ML; Start 10/05/16 at 09:00 Heparin Sodium (Porcine) (Heparin (5000 Units/0.5 ml)) 5,000 unit Q12 SC Last administered on 10/06/16 21:48; Admin Dose 5,000 UNIT; Start 10/04/16 at 21:00 Multivitamins/ Minerals (Theragran-M) 1 tab DAILY PO Last administered on 10:50; Admin Dose 1 TAB; Start 10/05/16 at 09:00 Ondansetron HCl (Zofran Tab) 4 mg Q6H PRN PO NAUSEA AND/OR VOMITING; Start 10/04 at 16:00 Aspirin (Aspirin) 81 mg DAILY PO Last administered on 10/07/16 10:51; Admin Dose 81 MG; Start 10/05/16 at 09:00 Nitroglycerin (Nitroglycerin (Sl Tab) 0.4 Mg) 1 tab Q5M PRN SL CHEST PAIN; Start 10/04/16 at 16:00 Acetaminophen (Tylenol Tab) 650 mg Q6H PRN PO PAIN LEVEL 1-3 OR FEVER; Start at 16:00 Morphine Sulfate (morphine) 1 mg Q4H PRN IV PAIN LEVEL 7-10; Start 10/04/16 at 16:00 Docusate Sodium (Colace) 100 mg Q12H PRN PO CONSTIPATION; Start 10/04/16 at 16: 00 Bisacodyl (Dulcolax Supp) 10 mg DAILY PRN [place] CONSTIPATION; Start 10/04/16 at 16: 00 Pantoprazole (Protonix Tab) 40 mg DAILY@06 PO Last administered on 10/06/16 06: 40; Admin Dose 40 MG; Start 10/05/16 at 06:00 Miscellaneous Information 1 ea NOTE XX ; Start 10/04/16 at 17:00 Glucose (Glutose) 15 gm Q15M PRN PO DECREASED GLUCOSE; Start 10/04/16 at 17:00 Glucose (Glutose) 22.5 gm Q15M PRN PO DECREASED GLUCOSE; Start 10/04/16 at 17:00 Dextrose (D50w Syringe) 25 ml Q15M PRN IV DECREASED GLUCOSE; Start 10/04/16 at 17:00 Dextrose (D50w Syringe) 50 ml Q15M PRN IV DECREASED GLUCOSE; Start 10/04/16 at 17:00 Glucagon (Glucagen) 1 mg Q15M PRN IM DECREASED GLUCOSE; Start 10/04/16 at 17:00 Glucose 15 gm 15 gm Q15M PRN BUCCAL DECREASED GLUCOSE; Start 10/04/16 at 17:00 Sodium Chloride (NS) 1,000 ml @ 75 mls/hr [id number] IV Last administered on 15:54; Admin Dose 75 MLS/HR; Start 10/04/16 at 19:30 Carvedilol (Coreg) 6.25 mg BID PO Last administered on 10/07/16 10:41; Admin Dose 6.25 MG; Start 10/04/16 at 21:00 Diagnostic Test (Pha) 1 ea 1 ea 02 XX ; Start 10/05/16 at 02:00 Levofloxacin/ Dextrose (Levaquin 500mg/ D5W 100 ml (Pmx)) 100 ml @ 100 mls/hr Q24H IVPB Last administered on 10/07/16 15:56; Admin Dose 100 MLS/HR; Start 10/06/16 at 15:30 BECKY CARDENAS Oct 07, 2016 17:14
[2016-10-07] MEDS ORDERED: FUROSEMIDE 40 MG INJ IV ONE (17:30)
[2016-10-07] MEDS ORDERED: MAGNESIUM SULFATE 2 GM/50 ML 50 ML IVPB ONE (17:30)
[2016-10-07] MEDS ORDERED: METHYLPREDNISOLONE 125 MG INJ IV ONE (17:30)
[2016-10-07] MEDS: ATORVASTATIN 10 MG TAB PO SCH (20:28)
[2016-10-07] MEDS: DOCUSATE SODIUM 100 MG CAP PO PRN (20:50)
--- NOTE | 2016-10-07 21:35 | RADRPT ---
PROCEDURE: US bilateral lower extremity veins. CLINICAL INDICATION: Bilateral leg pain and swelling. TECHNIQUE: Multiple longitudinal and transverse images of the bilateral lower extremity veins were obtained with mayers scale and color Doppler imaging. The common femoral vein, femoral vein, and popl iteal vein were evaluated. 2D grayscale measurements with compression sonography, color Doppler, and pulsed Doppler with augmentation. COMPARISON: No prior studies are available for comparison. FINDINGS: The bilateral common femoral, femoral and popliteal veins are normally compressible throughout. Col or flow demonstrates normal filling of the vessels. Normal waveforms are visualized and there is no rmal response to augmentation. IMPRESSION: 1. No evidence of deep vein thrombosis involving either lower extremity. RPTAT: QQ .Keon Mojica MD, MD Date Time Electronically viewed and signed by .Keon Mojica MD, on 10/07/2016 21:35 .R/
[2016-10-08] VITALS (10 sets, daily range): BP systolic 118–151; BP diastolic 56–75; PULSE 59–75; RESP 16–20
[2016-10-08] MEDS: ALBUTEROL/IPRATROPIUM (NEB) 3 ML AMP HHN SCH ×4 (01:48→19:10)
[2016-10-08] MEDS: ACCU-CHEK XX SCH (02:00)
[2016-10-08] MEDS: PANTOPRAZOLE (EC) 40 MG TAB PO SCH (06:09)
[2016-10-08] MEDS: LEVOTHYROXINE 100 MCG TAB PO SCH (06:09)
[2016-10-08] MEDS: LINAGLIPTIN 5 MG TABLET PO SCH (08:19)
[2016-10-08] MEDS: GABAPENTIN 300 MG CAP PO SCH ×2 (08:19→21:09)
[2016-10-08] MEDS: MAGNESIUM HYDROXIDE 30ML CUP PO SCH (08:19)
[2016-10-08] MEDS: ASPIRIN 81 MG TAB PO SCH (08:19)
[2016-10-08] MEDS: FERROUS SULFATE (EC) 325 MG TAB PO SCH (08:19)
[2016-10-08] MEDS: MULTIVITAMINS/MINERALS TAB PO SCH (08:19)
[2016-10-08] MEDS: HEPARIN 5,000 UNIT/0.5 ML VIAL SC SCH ×2 (08:21→21:20)
[2016-10-08] MEDS: INSULIN ASPART [NOVOLOG] 3 ML PEN SC SCH ×4 (08:25→21:20)
[2016-10-08] MEDS: metFORMIN (XR) 500 MG TAB PO SCH ×2 (08:26→17:41)
[2016-10-08] MEDS: EZETIMIBE 10 MG TAB PO SCH ×2 (09:00→12:28)
--- NOTE | 2016-10-08 10:01 | RADRPT ---
PROCEDURE: XR Chest. CLINICAL INDICATION: shortness of breath TECHNIQUE: Single AP view of the chest were obtained COMPARISON: 10/04/2016 FINDINGS: The heart is moderately enlarged. The pulmonary vasculature are prominent. The aorta demonstrates a therosclerotic calcifications. Bilateral interstitial opacities are seen without focal consolidati on. There is no pleural effusion or pneumothorax. Degenerative changes are seen within the thoraci c spine. There is no acute osseous abnormality. IMPRESSION: Moderate cardiomegaly. Pulmonary vascular congestion and edema is present without consolidation, effusion, or pneumothorax. RPTAT: AA .Joyce Serna MD, Date Time Electronically viewed and signed by .Joyce Serna MD, MD on 10/08/2016 10:00 .Brody/
[2016-10-08 13:58] LABS: ADD SCAN DIFF NO
[2016-10-08 14:06] LABS: BASOPHILS % 0.1 % (0.0-2.0); HEMOGLOBIN 10.6 g/dl (12.0-16.0); LYMPHOCYTES % 8.8 % (15.0-51.0); MEAN CORPUSCULAR HEMOGLOBIN 29.1 pg (29.0-33.0); MEAN CORPUSCULAR HGB CONC 32.1 g/dl (32.0-37.0); MEAN CORPUSCULAR VOLUME 90.7 fl (82.0-101.0); MEAN PLATELET VOLUME 9.1 fl (7.4-10.4); MONOCYTE # 0.4 10^3/ul (0.3-0.9); MONOCYTES % 3.6 % (0.0-11.0); NEUTROPHIL # 9.9 10^3/ul (1.6-7.5); NEUTROPHILS % 86.4 % (39.0-77.0); PLATELET COUNT 318 10^3/UL (140-415); RED BLOOD COUNT 3.64 10^6/ul (4.20-5.40); RED CELL DISTRIBUTION WIDTH 14.6 % (11.5-14.5); WHITE BLOOD COUNT 11.5 10^3/ul (4.8-10.8)
[2016-10-08 14:16] LABS: CALCIUM 8.6 mg/dl (8.4-10.2); CREATININE 0.83 mg/dl (0.44-1.00); POTASSIUM 4.9 mmol/L (3.5-5.1)
[2016-10-08] MEDS: LEVOFLOXACIN 500MG/D5W (PMX) 100 ML IVPB SCH (14:59)
--- NOTE | 2016-10-08 15:54 | PN ---
Date/Time of Note Date/Time of Note DATE: 10/08/16 TIME: 15:51 Assessment/Plan VTE Prophylaxis VTE Prophylaxis Intervention: other Lines/Catheters IV Catheter Type (from [facility]): Peripheral IV Urinary Cath still in place: No Assessment/Plan Assessment/Plan - Chest pain. Dr. Goldsmith is following and cardiology consultation. Cardiac enzymes are negative 3. Negative stress test. - non at present - Dyslipidemia. Continue statin. - Diabetes mellitus. Continue Tradjenta and metformin. - Hypothyroidism. Continue levothyroxine. TSH is elevated will check T4 patient with history of refusing medication, would not increase the dose of levothyroxine at this time. - History of stroke with left-sided hemiplegia. Continue aspirin. - Systemic inflammatory response syndrome with leukocytosis, follow-up on urine culture. - Hypomagnesemia, will replace magnesium. - Bilateral carotid stenosis. Dr Fernandez is asked to see pt in vascular surgery consultation. - Continue heparin for deep venous thrombosis prophylaxis. Further recommendations based on clinical course. Plan of care discussed with Dr. Stanley. Exam/Review of Systems Vital Signs Vitals Vital Signs Date Time Temp Pulse Resp B/P Pulse Ox O2 Delivery O2 Flow Rate FiO2 10/08/16 13:32 65 20 86 Nasal Cannula 21 10/08/16 11:45 98.6 137/75 Intake and Output 10/07/16 10/07/16 10/08/16 15:00 23:00 07:00 Intake Total 1100 ml Output Total 1 ml Balance 1099 ml Exam Constitutional: alert, oriented Psych: nl mood/affect Head: atraumatic Eyes: EOMI, PERRL, nl sclera ENMT: nl external ears & nose Neck: supple Respiratory: wheezing Cardiovascular: nl pulses Gastrointestinal: non-tender, soft Musculoskeletal: nl extremities to inspection Extremities: normal pulses Neurological: nl speech Lymph: nontender Results Result Diagram: 10/08/16 1350 10/08/16 1350 Results 24 hrs Laboratory Tests Test 10/07/16 17:13 10/07/16 20:17 10/08/16 07:56 10/08/16 12:15 Bedside Glucose 130 117 188 157 Test 10/08/16 13:50 White Blood Count 11.5 #H Red Blood Count 3.64 L Hemoglobin 10.6 L Hematocrit 33.0 L Mean Corpuscular Volume 90.7 Mean Corpuscular Hemoglobin 29.1 Mean Corpuscular Hemoglobin Concent 32.1 Red Cell Distribution Width 14.6 H Platelet Count 318 # Mean Platelet Volume 9.1 Neutrophils % 86.4 H Lymphocytes % 8.8 L Monocytes % 3.6 Eosinophils % 0.0 Basophils % 0.1 Nucleated Red Blood Cells % 0.0 Neutrophils # 9.9 H Lymphocytes # 1.0 Monocytes # 0.4 Eosinophils # 0.0 Basophils # 0.0 Nucleated Red Blood Cells # 0.0 Sodium Level 133 L Potassium Level 4.9 Chloride Level 103 Carbon Dioxide Level 21 Anion Gap 14 Blood Urea Nitrogen 17 Creatinine 0.83 Glucose Level 168 Calcium Level 8.6 Medications Medications Current Medications Atorvastatin Calcium (Lipitor) 10 mg HS PO Last administered on 10/07/16 20:28 ; Admin Dose 10 MG; Start 10/04/16 at 21:00 EZETIMIBE (Zetia) 10 mg DAILY PO Last administered on 10/08/16 12:28; Admin Dose 10 MG; Start 10/05/16 at 09:00 Ferrous Sulfate (Ferrous Sulfate (Ec)) 325 mg DAILY PO Last administered on 10/08 08:19; Admin Dose 325 MG; Start 10/05/16 at 09:00 Gabapentin (Neurontin) 300 mg BID PO Last administered on 10/08/16 08:19; Admin Dose 300 MG; Start 10/04/16 at 21:00 Linagliptin (Tradjenta) 5 mg QAM PO Last administered on 10/08/16 08:19; Admin Dose 5 MG; Start 10/05/16 at 09:00 Magnesium Hydroxide (Milk Of Mag) 30 ml DAILY PO Last administered on 10/08/16 08:19; Admin Dose 30 ML; Start 10/05/16 at 09:00 Heparin Sodium (Porcine) (Heparin (5000 Units/0.5 ml)) 5,000 unit Q12 SC Last administered on 10/08/16 08:21; Admin Dose 5,000 UNIT; Start 10/04/16 at 21:00 Multivitamins/ Minerals (Theragran-M) 1 tab DAILY PO Last administered on 08:19; Admin Dose 1 TAB; Start 10/05/16 at 09:00 Ondansetron HCl (Zofran Tab) 4 mg Q6H PRN PO NAUSEA AND/OR VOMITING; Start 10/04 at 16:00 Aspirin (Aspirin) 81 mg DAILY PO Last administered on 10/08/16 08:19; Admin Dose 81 MG; Start 10/05/16 at 09:00 Nitroglycerin (Nitroglycerin (Sl Tab) 0.4 Mg) 1 tab Q5M PRN SL CHEST PAIN; Start 10/04/16 at 16:00 Acetaminophen (Tylenol Tab) 650 mg Q6H PRN PO PAIN LEVEL 1-3 OR FEVER; Start at 16:00 Morphine Sulfate (morphine) 1 mg Q4H PRN IV PAIN LEVEL 7-10; Start 10/04/16 at 16:00 Docusate Sodium (Colace) 100 mg Q12H PRN PO CONSTIPATION Last administered on 20:50; Admin Dose 100 MG; Start 10/04/16 at 16:00 Bisacodyl (Dulcolax Supp) 10 mg DAILY PRN [place] CONSTIPATION; Start 10/04/16 at 16: 00 Pantoprazole (Protonix Tab) 40 mg DAILY@06 PO Last administered on 10/08/16 06: 09; Admin Dose 40 MG; Start 10/05/16 at 06:00 Miscellaneous Information 1 ea NOTE XX ; Start 10/04/16 at 17:00 Glucose (Glutose) 15 gm Q15M PRN PO DECREASED GLUCOSE; Start 10/04/16 at 17:00 Glucose (Glutose) 22.5 gm Q15M PRN PO DECREASED GLUCOSE; Start 10/04/16 at 17:00 Dextrose (D50w Syringe) 25 ml Q15M PRN IV DECREASED GLUCOSE; Start 10/04/16 at 17:00 Dextrose (D50w Syringe) 50 ml Q15M PRN IV DECREASED GLUCOSE; Start 10/04/16 at 17:00 Glucagon (Glucagen) 1 mg Q15M PRN IM DECREASED GLUCOSE; Start 10/04/16 at 17:00 Glucose (Glutose) 15 gm Q15M PRN BUCCAL DECREASED GLUCOSE; Start 10/04/16 at 17: 00 Carvedilol (Coreg) 6.25 mg BID PO Last administered on 10/08/16 08:20; Admin Dose 6.25 MG; Start 10/04/16 at 21:00 Diagnostic Test (Pha) 1 ea 1 ea 02 XX ; Start 10/05/16 at 02:00 Levofloxacin/ Dextrose (Levaquin 500mg/ D5W 100 ml (Pmx)) 100 ml @ 100 mls/hr Q24H IVPB Last administered on 10/08/16t 14:59; Admin Dose 100 MLS/HR; Start 10/06/16 at 15:30 Methylprednisolone Sodium Succinate (Solu-Medrol) 40 mg ONCE ONCE IV ; Start at 16:00; Stop 10/08/16 at 16:01 FERMÍN PORTILLO Oct 08, 2016 15:53
[2016-10-08] MEDS ORDERED: METHYLPREDNISOLONE 40 MG INJ IV ONE (16:00)
--- NOTE | 2016-10-08 17:02 | CONS ---
Date/Time of Note Date/Time of Note DATE: 10/08/16 TIME: 17:00 Assessment/Plan Assessment/Plan Chief Complaint/Hosp Course IMp: 1.chest pain-negative troponin x 3. No ischemia by lexiscan. NL EF by echo this admit 2.HTN 3.HL 4.H/O CVA with L sided hemiplegia 5.DM Recc: -tele -Continue zetia/statin -Continue asa -Continue coreg and follow labile BP closely Problems: Consultation Date/Type/Reason Admit Date/Time Oct 06, 2016 at 15:20 Initial Consult Date 10/05/2016 Type of Consultation: Cardiology Reason for Consultation Chest pain/HTN Referring Provider: DANETTE JUAREZ MD Exam/Review of Systems Vital Signs Vitals Vital Signs Date Time Temp Pulse Resp B/P Pulse Ox O2 Delivery O2 Flow Rate FiO2 10/08/16 16:07 92 Nasal Cannula 2.0 10/08/16 16:04 66 10/08/16 15:58 98.0 20 151/65 10/08/16 13:32 21 Intake and Output 10/07/16 10/07/16 10/08/16 15:00 23:00 07:00 Intake Total 1100 ml Output Total 1 ml Balance 1099 ml Exam Review of Systems: CONSTITUTIONAL: No fevers, chills. PULMONARY: No sob CARDIOVASCULAR: No chest pain/palpitations GASTROINTESTINAL: No nausea/vomiting. GENITOURINARY: No hematuria/dysuria. MUSCULOSKELETAL: No myagias/arthalgias. PSYCHIATRIC: The patient denies depression. NEUROLOGIC: No weakness Constitutional: alert Psych: no complaints Head: normocephalic ENMT: mucosa pink and moist Neck: jvd, supple Respiratory: diminished breath sounds Cardiovascular: regular rate and rhythm Gastrointestinal: soft Musculoskeletal: muscle tone Extremities: normal pulses Neurological: other (No focal deficits) Results Result Diagram: 10/08/16 1350 10/08/16 1350 Results 24 hrs Laboratory Tests Test 10/07/16 17:13 10/07/16 20:17 10/08/16 07:56 10/08/16 12:15 Bedside Glucose 130 117 188 157 Test 10/08/16 13:50 White Blood Count 11.5 #H Red Blood Count 3.64 L Hemoglobin 10.6 L Hematocrit 33.0 L Mean Corpuscular Volume 90.7 Mean Corpuscular Hemoglobin 29.1 Mean Corpuscular Hemoglobin Concent 32.1 Red Cell Distribution Width 14.6 H Platelet Count 318 # Mean Platelet Volume 9.1 Neutrophils % 86.4 H Lymphocytes % 8.8 L Monocytes % 3.6 Eosinophils % 0.0 Basophils % 0.1 Nucleated Red Blood Cells % 0.0 Neutrophils # 9.9 H Lymphocytes # 1.0 Monocytes # 0.4 Eosinophils # 0.0 Basophils # 0.0 Nucleated Red Blood Cells # 0.0 Sodium Level 133 L Potassium Level 4.9 Chloride Level 103 Carbon Dioxide Level 21 Anion Gap 14 Blood Urea Nitrogen 17 Creatinine 0.83 Glucose Level 168 Calcium Level 8.6 Medications Medications Current Medications Atorvastatin Calcium (Lipitor) 10 mg HS PO Last administered on 10/07/16 20:28 ; Admin Dose 10 MG; Start 10/04/16 at 21:00 EZETIMIBE (Zetia) 10 mg DAILY PO Last administered on 10/08/16 12:28; Admin Dose 10 MG; Start 10/05/16 at 09:00 Ferrous Sulfate (Ferrous Sulfate (Ec)) 325 mg DAILY PO Last administered on 10/08 08:19; Admin Dose 325 MG; Start 10/05/16 at 09:00 Gabapentin (Neurontin) 300 mg BID PO Last administered on 10/08/16 08:19; Admin Dose 300 MG; Start 10/04/16 at 21:00 Linagliptin (Tradjenta) 5 mg QAM PO Last administered on 10/08/16 08:19; Admin Dose 5 MG; Start 10/05/16 at 09:00 Magnesium Hydroxide (Milk Of Mag) 30 ml DAILY PO Last administered on 10/08/16 08:19; Admin Dose 30 ML; Start 10/05/16 at 09:00 Heparin Sodium (Porcine) (Heparin (5000 Units/0.5 ml)) 5,000 unit Q12 SC Last administered on 10/08/16 08:21; Admin Dose 5,000 UNIT; Start 10/04/16 at 21:00 Multivitamins/ Minerals (Theragran-M) 1 tab DAILY PO Last administered on 08:19; Admin Dose 1 TAB; Start 10/05/16 at 09:00 Ondansetron HCl (Zofran Tab) 4 mg Q6H PRN PO NAUSEA AND/OR VOMITING; Start 10/04 at 16:00 Aspirin (Aspirin) 81 mg DAILY PO Last administered on 10/08/16 08:19; Admin Dose 81 MG; Start 10/05/16 at 09:00 Nitroglycerin (Nitroglycerin (Sl Tab) 0.4 Mg) 1 tab Q5M PRN SL CHEST PAIN; Start 10/04/16 at 16:00 Acetaminophen (Tylenol Tab) 650 mg Q6H PRN PO PAIN LEVEL 1-3 OR FEVER; Start at 16:00 Morphine Sulfate (morphine) 1 mg Q4H PRN IV PAIN LEVEL 7-10; Start 10/04/16 at 16:00 Docusate Sodium (Colace) 100 mg Q12H PRN PO CONSTIPATION Last administered on 20:50; Admin Dose 100 MG; Start 10/04/16 at 16:00 Bisacodyl (Dulcolax Supp) 10 mg DAILY PRN [place] CONSTIPATION; Start 10/04/16 at 16: 00 Pantoprazole (Protonix Tab) 40 mg DAILY@06 PO Last administered on 10/08/16 06: 09; Admin Dose 40 MG; Start 10/05/16 at 06:00 Miscellaneous Information 1 ea NOTE XX ; Start 10/04/16 at 17:00 Glucose (Glutose) 15 gm Q15M PRN PO DECREASED GLUCOSE; Start 10/04/16 at 17:00 Glucose (Glutose) 22.5 gm Q15M PRN PO DECREASED GLUCOSE; Start 10/04/16 at 17:00 Dextrose (D50w Syringe) 25 ml Q15M PRN IV DECREASED GLUCOSE; Start 10/04/16 at 17:00 Dextrose (D50w Syringe) 50 ml Q15M PRN IV DECREASED GLUCOSE; Start 10/04/16 at 17:00 Glucagon (Glucagen) 1 mg Q15M PRN IM DECREASED GLUCOSE; Start 10/04/16 at 17:00 Glucose (Glutose) 15 gm Q15M PRN BUCCAL DECREASED GLUCOSE; Start 10/04/16 at 17: 00 Carvedilol (Coreg) 6.25 mg BID PO Last administered on 10/08/16 08:20; Admin Dose 6.25 MG; Start 10/04/16 at 21:00 Diagnostic Test (Pha) 1 ea 1 ea 02 XX ; Start 10/05/16 at 02:00 Levofloxacin/ Dextrose (Levaquin 500mg/ D5W 100 ml (Pmx)) 100 ml @ 100 mls/hr Q24H IVPB Last administered on 10/08/16t 14:59; Admin Dose 100 MLS/HR; Start 10/06/16 at 15:30 Methylprednisolone Sodium Succinate (Solu-Medrol) 40 mg Q12 IV ; Start 10/08/16 at 21:00 AVERY VILLARREAL Oct 08, 2016 17:02
[2016-10-08] MEDS: ATORVASTATIN 10 MG TAB PO SCH (21:09)
[2016-10-08] MEDS: METHYLPREDNISOLONE 40 MG INJ IV SCH (21:10)
[2016-10-09] VITALS (13 sets, daily range): BP systolic 130–161; BP diastolic 60–72; PULSE 62–68; RESP 16–20
[2016-10-09] MEDS: ACCU-CHEK XX SCH (01:09)
[2016-10-09] MEDS: ALBUTEROL/IPRATROPIUM (NEB) 3 ML AMP HHN SCH ×4 (01:11→19:45)
--- NOTE | 2016-10-09 02:48 | CONS ---
DATE OF ADMISSION: 10/06/2016 DATE OF CONSULTATION: REASON FOR CONSULTATION: Carotid stenosis. Thank you, Dr. Stanley, for asking me to see this patient. HISTORY OF PRESENT ILLNESS: This is an 86-year-old female with a history of a CVA, essential hypert ension, dyslipidemia, hypotension. The patient was admitted because of atypical chest pain which is now resolved. Part of her workup has included a carotid ultrasound which showed bilateral carotid artery, severe stenosis of the right internal carotid artery, moderate to severe stenosis of the lef t internal carotid artery. PAST MEDICAL HISTORY: Significant for a history of CVA, dyslipidemia, neuropathy, anemia, hypothyro idism, diabetes, hypertension. MEDICATIONS: 1. Tylenol. 2. Lipitor. 3. Zetia. 4. Iron. 5. Gabapentin. 6. Synthroid. 7. Heparin. 8. Milk of Magnesia. 9. Metformin. 10. Multivitamins. ALLERGIES 1. PENICILLIN. 2. ADHESIVE TAPE. REVIEW OF SYSTEMS: As per HPI. PHYSICAL EXAMINATION: GENERAL: Patient is awake, not completely oriented. VITAL SIGNS: Blood pressure is 132/68, pulse is 73, respirations 18, saturation is 94% on 2 liters of oxygen. HEENT: Normocephalic, atraumatic. PERRLA. NECK: Supple. No JVD, no carotid bruits. CARDIOVASCULAR: Normal S1, S2. LUNGS: Clear. ABDOMEN: Soft, obese, nontender, nondistended. EXTREMITIES: Warm. LABORATORY VALUES: Significant for a hemoglobin of 10.6, white count 11.5, platelet count 318, norm al coagulation factors and a creatinine of 0.83. IMPRESSION: Carotid stenosis. Patient has had a history of CVA in the past. RECOMMENDATIONS: The patient will need a carotid CT angiogram in anticipation for possible carotid endarterectomy. We will also need cardiology clearance prior to surgery. We will discuss with the referring physician. Dictated By: CHRIS KUHN/ADELITA Conf#: [id number] DID#: [id number]
[2016-10-09] MEDS: PANTOPRAZOLE (EC) 40 MG TAB PO SCH (05:14)
[2016-10-09] MEDS: LEVOTHYROXINE 100 MCG TAB PO SCH (05:15)
[2016-10-09 06:32] LABS: CALCIUM 8.5 mg/dl (8.4-10.2); CREATININE 0.81 mg/dl (0.44-1.00); POTASSIUM 4.5 mmol/L (3.5-5.1)
[2016-10-09 07:13] LABS: MAGNESIUM 1.7 mg/dl (1.7-2.5)
[2016-10-09] MEDS: FERROUS SULFATE (EC) 325 MG TAB PO SCH (08:30)
[2016-10-09] MEDS: ASPIRIN 81 MG TAB PO SCH (08:30)
[2016-10-09] MEDS: MULTIVITAMINS/MINERALS TAB PO SCH (08:31)
[2016-10-09] MEDS: GABAPENTIN 300 MG CAP PO SCH ×2 (08:31→20:34)
[2016-10-09] MEDS: METHYLPREDNISOLONE 40 MG INJ IV SCH ×2 (08:31→20:35)
[2016-10-09] MEDS: LINAGLIPTIN 5 MG TABLET PO SCH (08:31)
[2016-10-09] MEDS: HEPARIN 5,000 UNIT/0.5 ML VIAL SC SCH ×2 (08:34→20:36)
[2016-10-09] MEDS: INSULIN ASPART [NOVOLOG] 3 ML PEN SC SCH ×4 (08:34→20:35)
[2016-10-09] MEDS: MAGNESIUM HYDROXIDE 30ML CUP PO SCH (08:38)
[2016-10-09] MEDS ORDERED: IOHEXOL 100 ML ONE (09:31)
[2016-10-09] MEDS ORDERED: SOD CHLORIDE 0.9% 100 ML ONE ×2 (09:31→18:54)
[2016-10-09] MEDS: metFORMIN (XR) 500 MG TAB PO SCH ×2 (10:41→17:17)
[2016-10-09] MEDS: EZETIMIBE 10 MG TAB PO SCH (10:41)
--- NOTE | 2016-10-09 12:45 | RADRPT ---
PROCEDURE: CTA Neck. CLINICAL INDICATION: History of carotid stenosis. TECHNIQUE: The study was performed utilizing a GE 64-slice multidetector CT scanner. Direct spiral axial sections were obtained through the neck with the use of 75 cc of Omnipaque 350 nonionic intra venous contrast material. Coronal and sagittal as well as maximal intensity projection reformations were obtained. The CTDI vol is 83.57 mGy and the DLP is 660.61 mGy-cm. The images were reviewed on a PACS workstation. COMPARISON: Carotid ultrasound from 11/12/2012 FINDINGS: The aortic arch is atherosclerotic as well as the branch vessels of the aortic arch are atherosclero tic. The bilateral common carotid arteries are mildly tortuous and atherosclerotic but otherwise un remarkable in course and caliber. The cervical right internal carotid artery is occluded. Calcific plaque in the left carotid bifurcation is seen which appears moderate extent. The remaining course of the cervical left internal carotid arteries otherwise unremarkable. Mild calcific plaque at the origins of the vertebral arteries are seen. Mild calcific plaque in the proximal cervical left gideon tebral artery is seen. The bilateral vertebral arteries are otherwise unremarkable course and calib er. The vertebral arteries are codominant. Reconstitution of the right middle cerebral artery is seen. The right middle cerebral artery is sma ll in caliber compared to the left middle cerebral artery. A left pleural effusion is incompletely v isualized. IMPRESSION: 1. 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 Further evaluation with a CT angiogram of the brain is r ecommended. 2. Incomplete visualization of a left pleural effusion. RPTAT: HPNM Results were discussed with the patient's nurse Brice Etienne at 10/09/2016 12:43:48 PM Physician Jaz Date Time Electronically viewed and signed by Physician Jaz on 10/09/2016 12:45 /
--- NOTE | 2016-10-09 14:11 | PN ---
Date/Time of Note Date/Time of Note DATE: 10/09/16 TIME: 14:09 Assessment/Plan Lines/Catheters IV Catheter Type (from Nrs): Saline Lock Foster in Place (from Nrsg): No Assessment/Plan Chief Complaint/Hosp Course IMPRESSION: 1. 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 no plan for surgery on the Right ICA May need endartrectomy on the Left ICA will get CT angio brain Problems: Subjective 24 Hr Interval Summary Constitutional: improved Pain Control: mild Exam/Review of Systems Vital Signs Vitals Vital Signs Date Time Temp Pulse Resp B/P Pulse Ox O2 Delivery O2 Flow Rate FiO2 10/09/16 12:00 68 10/09/16 11:29 98.0 19 130/60 91 10/09/16 08:15 Nasal Cannula 2.0 10/08/16 13:32 21 Intake and Output 10/08/16 10/08/16 10/09/16 15:00 23:00 07:00 Intake Total 400 ml 700 ml 500 ml Output Total 850 ml Balance -450 ml 700 ml 500 ml Exam ENMT: mucosa pink and moist, nl external ears & nose, nl lips & teeth, nl nasal mucosa & septum Neck: non-tender, supple Respiratory: clear to auscultation, normal air movement Cardiovascular: nl pulses, regular rate and rhythm Results Result Diagram: 10/08/16 1350 10/09/16 0550 CHRIS DUQUE MD Oct 09, 2016 14:11
--- NOTE | 2016-10-09 14:44 | CONS ---
Date/Time of Note Date/Time of Note DATE: 10/09/16 TIME: 14:43 Assessment/Plan Assessment/Plan Chief Complaint/Hosp Course IMp: 1.chest pain-negative troponin x 3. No ischemia by lexiscan. NL EF by echo this admit 2.HTN-reasonable control 3.HL 4.H/O CVA with L sided hemiplegia 5.DM Recc: -tele -Continue zetia/statin -Continue asa -Continue coreg and follow BP closely Problems: Consultation Date/Type/Reason Admit Date/Time Oct 06, 2016 at 15:20 Initial Consult Date 10/05/2016 Type of Consultation: Cardiology Reason for Consultation chest pain Referring Provider: DANETTE JUAREZ MD Exam/Review of Systems Vital Signs Vitals Vital Signs Date Time Temp Pulse Resp B/P Pulse Ox O2 Delivery O2 Flow Rate FiO2 10/09/16 12:00 68 10/09/16 11:29 98.0 19 130/60 91 10/09/16 08:15 Nasal Cannula 2.0 10/08/16 13:32 21 Intake and Output 10/08/16 10/08/16 10/09/16 15:00 23:00 07:00 Intake Total 400 ml 700 ml 500 ml Output Total 850 ml Balance -450 ml 700 ml 500 ml Exam Review of Systems: CONSTITUTIONAL: No fevers, chills. PULMONARY: No sob CARDIOVASCULAR: No chest pain/palpitations GASTROINTESTINAL: No nausea/vomiting. GENITOURINARY: No hematuria/dysuria. MUSCULOSKELETAL: No myagias/arthalgias. PSYCHIATRIC: The patient denies depression. NEUROLOGIC: No weakness Constitutional: alert Psych: no complaints Head: normocephalic ENMT: mucosa pink and moist Neck: jvd (8 cm water), supple Respiratory: diminished breath sounds (at bases/B) Cardiovascular: regular rate and rhythm Gastrointestinal: non-tender, soft Musculoskeletal: muscle tone (normal) Extremities: edema (none) Neurological: lethargic Results Result Diagram: 10/08/16 1350 10/09/16 0550 Results 24 hrs Laboratory Tests Test 10/08/16 16:49 10/08/16 21:08 10/09/16 01:08 10/09/16 05:50 Bedside Glucose 159 182 158 Sodium Level 134 L Potassium Level 4.5 Chloride Level 104 Carbon Dioxide Level 19 L Anion Gap 16 Blood Urea Nitrogen 20 Creatinine 0.81 Glucose Level 191 Calcium Level 8.5 Magnesium Level 1.7 B-Type Natriuretic Peptide 5990 H Test 10/09/16 08:07 10/09/16 11:48 Bedside Glucose 160 188 Medications Medications Current Medications Atorvastatin Calcium (Lipitor) 10 mg HS PO Last administered on 10/08/16 21:09 ; Admin Dose 10 MG; Start 10/04/16 at 21:00 EZETIMIBE (Zetia) 10 mg DAILY PO Last administered on 10/09/16 10:41; Admin Dose 10 MG; Start 10/05/16 at 09:00 Ferrous Sulfate (Ferrous Sulfate (Ec)) 325 mg DAILY PO Last administered on 10/09 08:30; Admin Dose 325 MG; Start 10/05/16 at 09:00 Gabapentin (Neurontin) 300 mg BID PO Last administered on 10/09/16 08:31; Admin Dose 300 MG; Start 10/04/16 at 21:00 Linagliptin (Tradjenta) 5 mg QAM PO Last administered on 10/09/16 08:31; Admin Dose 5 MG; Start 10/05/16 at 09:00 Magnesium Hydroxide (Milk Of Mag) 30 ml DAILY PO Last administered on 10/09/16 08:38; Admin Dose 30 ML; Start 10/05/16 at 09:00 Heparin Sodium (Porcine) (Heparin (5000 Units/0.5 ml)) 5,000 unit Q12 SC Last administered on 10/09/16 08:34; Admin Dose 5,000 UNIT; Start 10/04/16 at 21:00 Multivitamins/ Minerals (Theragran-M) 1 tab DAILY PO Last administered on 08:31; Admin Dose 1 TAB; Start 10/05/16 at 09:00 Ondansetron HCl (Zofran Tab) 4 mg Q6H PRN PO NAUSEA AND/OR VOMITING; Start 10/04 at 16:00 Aspirin (Aspirin) 81 mg DAILY PO Last administered on 10/09/16 08:30; Admin Dose 81 MG; Start 10/05/16 at 09:00 Nitroglycerin (Nitroglycerin (Sl Tab) 0.4 Mg) 1 tab Q5M PRN SL CHEST PAIN; Start 10/04/16 at 16:00 Acetaminophen (Tylenol Tab) 650 mg Q6H PRN PO PAIN LEVEL 1-3 OR FEVER; Start at 16:00 Morphine Sulfate (morphine) 1 mg Q4H PRN IV PAIN LEVEL 7-10; Start 10/04/16 at 16:00 Docusate Sodium (Colace) 100 mg Q12H PRN PO CONSTIPATION Last administered on 20:50; Admin Dose 100 MG; Start 10/04/16 at 16:00 Bisacodyl (Dulcolax Supp) 10 mg DAILY PRN OR CONSTIPATION; Start 10/04/16 at 16: 00 Pantoprazole (Protonix Tab) 40 mg DAILY@06 PO Last administered on 10/09/16 05: 14; Admin Dose 40 MG; Start 10/05/16 at 06:00 Miscellaneous Information 1 ea NOTE XX ; Start 10/04/16 at 17:00 Glucose (Glutose) 15 gm Q15M PRN PO DECREASED GLUCOSE; Start 10/04/16 at 17:00 Glucose (Glutose) 22.5 gm Q15M PRN PO DECREASED GLUCOSE; Start 10/04/16 at 17:00 Dextrose (D50w Syringe) 25 ml Q15M PRN IV DECREASED GLUCOSE; Start 10/04/16 at 17:00 Dextrose (D50w Syringe) 50 ml Q15M PRN IV DECREASED GLUCOSE; Start 10/04/16 at 17:00 Glucagon (Glucagen) 1 mg Q15M PRN IM DECREASED GLUCOSE; Start 10/04/16 at 17:00 Glucose (Glutose) 15 gm Q15M PRN BUCCAL DECREASED GLUCOSE; Start 10/04/16 at 17: 00 Carvedilol (Coreg) 6.25 mg BID PO Last administered on 10/09/16 08:32; Admin Dose 6.25 MG; Start 10/04/16 at 21:00 Diagnostic Test (Pha) 1 ea 1 ea 02 XX ; Start 10/05/16 at 02:00 Levofloxacin/ Dextrose (Levaquin 500mg/ D5W 100 ml (Pmx)) 100 ml @ 100 mls/hr Q24H IVPB Last administered on 10/08/16 14:59; Admin Dose 100 MLS/HR; Start 10/06/16 at 15:30 Methylprednisolone Sodium Succinate (Solu-Medrol) 40 mg Q12 IV Last administered on 10/09/16 08:31; Admin Dose 40 MG; Start 10/08/16 at 21:00 AVERY VILLARREAL Oct 09, 2016 14:44
[2016-10-09] MEDS: LEVOFLOXACIN 500MG/D5W (PMX) 100 ML IVPB SCH (15:05)
[2016-10-09] MEDS ORDERED: IODIXANOL LOCM 100 ML BTL ONE (18:54)
[2016-10-09] MEDS: ATORVASTATIN 10 MG TAB PO SCH (20:34)
[2016-10-10] VITALS (12 sets, daily range): BP systolic 105–131; BP diastolic 55–68; PULSE 57–69; RESP 16–20
[2016-10-10] MEDS: ALBUTEROL/IPRATROPIUM (NEB) 3 ML AMP HHN SCH ×4 (01:54→19:06)
[2016-10-10] MEDS: ACCU-CHEK XX SCH (02:00)
[2016-10-10] MEDS: PANTOPRAZOLE (EC) 40 MG TAB PO SCH (05:39)
[2016-10-10] MEDS: LEVOTHYROXINE 100 MCG TAB PO SCH (05:40)
[2016-10-10] MEDS: INSULIN ASPART [NOVOLOG] 3 ML PEN SC SCH ×4 (08:00→20:58)
--- NOTE | 2016-10-10 08:47 | RADRPT ---
PROCEDURE: CTA BRAIN WITH CONTRAST CLINICAL INDICATION: Neurologic deficit, occlusion COMPARISON: Correlation CT angiogram neck 10/09/2016 TECHNIQUE: Helical axial images were obtained through the head with contrast. Coronal and sagittal MIP images w ere obtained through the brain. Additional 3D volumetric renderings were created. 100 cc of Isovue 370 was administered intravenously without reported complication. DOSE: CTDI = 70/33 mGy and the DLP = 567 mGy-cm. FINDINGS: Mild stenosis of the left P1-P2 junction. The basilar artery and bilateral intradural segments of t he vertebral arteries are patent without significant focal stenosis. High-grade segmental narrowing with only a tiny, thin string of vascular intraluminal contrast seen in the high cervical right internal carotid artery, petrous segment, and proximal cavernous segment. There appears to be focal occlusion at the distal cavernous right ICA segment. There is reconstit ution of the right internal carotid artery at the supraclinoid segment, however, the caliber of the vessel is much smaller than the left. Diffuse narrow appearance of the right M1 when compared to th e left. There is faint contrast enhancement of the distal right MCA branches. Additionally, there i s a diffusely narrowed appearance of the bilateral ISAURA. No significant focal stenosis or proximal o cclusion of the left MCA is identified. IMPRESSION: High-grade segmental narrowing with only a tiny, thin string of vascular intraluminal contrast seen in the high cervical right internal carotid artery, petrous segment, and proximal cavernous segment. There appears to be focal occlusion at the distal cavernous right ICA segment with reconstitution of contrast enhancement in the supraclinoid right ICA. Diffuse narrow appearance of the right M1 when compared to the left. There is faint contrast enhanc ement of the distal right MCA branches. Additionally, there is a diffusely narrowed appearance of t he bilateral ISAURA. RPTAT: AA .Jonathan Curtis MD, MD Date Time Electronically viewed and signed by .Jonathan Curtis MD, MD on 10/10/2016 08:47 .T/
[2016-10-10] MEDS: metFORMIN (XR) 500 MG TAB PO SCH ×2 (10:52→17:42)
[2016-10-10] MEDS: ASPIRIN 81 MG TAB PO SCH (10:52)
[2016-10-10] MEDS: FERROUS SULFATE (EC) 325 MG TAB PO SCH (10:52)
[2016-10-10] MEDS: GABAPENTIN 300 MG CAP PO SCH ×2 (10:52→20:59)
[2016-10-10] MEDS: MAGNESIUM HYDROXIDE 30ML CUP PO SCH (10:53)
[2016-10-10] MEDS: MULTIVITAMINS/MINERALS TAB PO SCH (10:53)
[2016-10-10] MEDS: LINAGLIPTIN 5 MG TABLET PO SCH (10:53)
[2016-10-10] MEDS: METHYLPREDNISOLONE 40 MG INJ IV SCH ×2 (10:54→20:59)
[2016-10-10] MEDS: HEPARIN 5,000 UNIT/0.5 ML VIAL SC SCH ×2 (10:58→21:09)
[2016-10-10] MEDS: EZETIMIBE 10 MG TAB PO SCH (11:10)
--- NOTE | 2016-10-10 14:55 | PN ---
Date/Time of Note Date/Time of Note DATE: 10/10/16 TIME: 14:52 Assessment/Plan Lines/Catheters IV [facility] Type [facility]from [facility] Saline Lock Foster in Place (from Nrs): No Assessment/Plan Chief Complaint/Hosp Course IMPRESSION: 1. 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 no plan for surgery on the Right ICA will get CT angio brain : High-grade segmental narrowing with only a tiny, thin string of vascular intraluminal contrast seen in the high cervical right internal carotid artery, petrous segment, and proximal cavernous segment. There appears to be focal occlusion at the distal cavernous right ICA segment with reconstitution of contrast enhancement in the supraclinoid right ICA. will evaluate for possible Left endartrectomy when more stable Problems: Subjective 24 Hr Interval Summary Constitutional: improved Pain Control: mild Exam/Review of Systems Vital Signs Vitals Vital Signs Date Time Temp Pulse Resp B/P Pulse Ox O2 Delivery O2 Flow Rate FiO2 10/10/16 13:59 61 20 92 Nasal Cannula 2.0 10/10/16 11:42 97.9 131/62 10/08/16 13:32 21 Intake and Output 10/09/16 10/09/16 10/10/16 15:00 23:00 07:00 Intake Total 600 ml 450 ml Balance 600 ml 450 ml Exam ENMT: mucosa pink and moist, nl external ears & nose, nl lips & teeth, nl nasal mucosa & septum Neck: non-tender, supple Respiratory: clear to auscultation, normal air movement Cardiovascular: nl pulses, regular rate and rhythm Results Result Diagram: 10/08/16 1350 10/09/16 0550 CHRIS DUQUE MD Oct 10, 2016 14:55
--- NOTE | 2016-10-10 15:09 | CONS ---
Date/Time of Note Date/Time of Note DATE: 10/10/16 TIME: 15:07 Assessment/Plan Assessment/Plan Chief Complaint/Hosp Course IMp: 1.chest pain-negative troponin x 3. No ischemia by lexiscan. NL EF by echo this admit 2.HTN-reasonable control 3.HL 4.H/O CVA with L sided hemiplegia 5.DM 6.Carotid stenosis Recc: -tele -Continue zetia/statin -Continue asa -Continue coreg and follow BP closely -Being evaluated for possible CEA by vascular surgery Problems: Consultation Date/Type/Reason Admit Date/Time Oct 06, 2016 at 15:20 Initial Consult Date 10/05/2016 Type of Consultation: Cardiology Reason for Consultation chest pain Referring Provider: DANETTE JUAREZ MD Exam/Review of Systems Vital Signs Vitals Vital Signs Date Time Temp Pulse Resp B/P Pulse Ox O2 Delivery O2 Flow Rate FiO2 10/10/16 13:59 61 20 92 Nasal Cannula 2.0 10/10/16 11:42 97.9 131/62 10/08/16 13:32 21 Intake and Output 10/09/16 10/09/16 10/10/16 15:00 23:00 07:00 Intake Total 600 ml 450 ml Balance 600 ml 450 ml Exam Review of Systems: CONSTITUTIONAL: No fevers, chills. PULMONARY: c/o cough CARDIOVASCULAR: No chest pain/palpitations GASTROINTESTINAL: No nausea/vomiting. GENITOURINARY: No hematuria/dysuria. MUSCULOSKELETAL: No myagias/arthalgias. PSYCHIATRIC: The patient denies depression. NEUROLOGIC: No weakness Constitutional: alert Psych: no complaints Head: normocephalic ENMT: mucosa pink and moist Neck: jvd (9 cm water), supple Respiratory: diminished breath sounds (at bases/B) Cardiovascular: regular rate and rhythm Gastrointestinal: non-tender, soft Musculoskeletal: muscle weakness (generalized) Extremities: edema (none) Neurological: lethargic Results Result Diagram: 10/08/16 1350 10/09/16 0550 Results 24 hrs Laboratory Tests Test 10/09/16 17:07 10/09/16 20:31 10/10/16 07:44 10/10/16 12:01 Bedside Glucose 158 136 173 161 Medications Medications Current Medications Atorvastatin Calcium (Lipitor) 10 mg HS PO Last administered on 10/09/16t 20:34 ; Admin Dose 10 MG; Start 10/04/16 at 21:00 EZETIMIBE (Zetia) 10 mg DAILY PO Last administered on 10/10/16 11:10; Admin Dose 10 MG; Start 10/05/16 at 09:00 Ferrous Sulfate (Ferrous Sulfate (Ec)) 325 mg DAILY PO Last administered on 10:52; Admin Dose 325 MG; Start 10/05/16 at 09:00 Gabapentin (Neurontin) 300 mg BID PO Last administered on 10/10/16 10:52; Admin Dose 300 MG; Start 10/04/16 at 21:00 Linagliptin (Tradjenta) 5 mg QAM PO Last administered on 10/10/16 10:53; Admin Dose 5 MG; Start 10/05/16 at 09:00 Magnesium Hydroxide (Milk Of Mag) 30 ml DAILY PO Last administered on 10:53; Admin Dose 30 ML; Start 10/05/16 at 09:00 Heparin Sodium (Porcine) (Heparin (5000 Units/0.5 ml)) 5,000 unit Q12 SC Last administered on 10/10/16 10:58; Admin Dose 5,000 UNIT; Start 10/04/16 at 21:00 Multivitamins/ Minerals (Theragran-M) 1 tab DAILY PO Last administered on 10:53; Admin Dose 1 TAB; Start 10/05/16 at 09:00 Ondansetron HCl (Zofran Tab) 4 mg Q6H PRN PO NAUSEA AND/OR VOMITING; Start 10/04 at 16:00 Aspirin (Aspirin) 81 mg DAILY PO Last administered on 10/10/16 10:52; Admin Dose 81 MG; Start 10/05/16 at 09:00 Nitroglycerin (Nitroglycerin (Sl Tab) 0.4 Mg) 1 tab Q5M PRN SL CHEST PAIN; Start 10/04/16 at 16:00 Acetaminophen (Tylenol Tab) 650 mg Q6H PRN PO PAIN LEVEL 1-3 OR FEVER; Start at 16:00 Morphine Sulfate (morphine) 1 mg Q4H PRN IV PAIN LEVEL 7-10; Start 10/04/16 at 16:00 Docusate Sodium (Colace) 100 mg Q12H PRN PO CONSTIPATION Last administered on 20:50; Admin Dose 100 MG; Start 10/04/16 at 16:00 Bisacodyl (Dulcolax Supp) 10 mg DAILY PRN HI CONSTIPATION; Start 10/04/16 at 16: 00 Pantoprazole (Protonix Tab) 40 mg DAILY@06 PO Last administered on 10/10/16 05 :39; Admin Dose 40 MG; Start 10/05/16 at 06:00 Miscellaneous Information 1 ea NOTE XX ; Start 10/04/16 at 17:00 Glucose (Glutose) 15 gm Q15M PRN PO DECREASED GLUCOSE; Start 10/04/16 at 17:00 Glucose (Glutose) 22.5 gm Q15M PRN PO DECREASED GLUCOSE; Start 10/04/16 at 17:00 Dextrose (D50w Syringe) 25 ml Q15M PRN IV DECREASED GLUCOSE; Start 10/04/16 at 17:00 Dextrose (D50w Syringe) 50 ml Q15M PRN IV DECREASED GLUCOSE; Start 10/04/16 at 17:00 Glucagon (Glucagen) 1 mg Q15M PRN IM DECREASED GLUCOSE; Start 10/04/16 at 17:00 Glucose (Glutose) 15 gm Q15M PRN BUCCAL DECREASED GLUCOSE; Start 10/04/16 at 17: 00 Carvedilol (Coreg) 6.25 mg BID PO Last administered on 10/09/16 20:35; Admin Dose 6.25 MG; Start 10/04/16 at 21:00 Diagnostic Test (Pha) 1 ea 1 ea 02 XX ; Start 10/05/16 at 02:00 Levofloxacin/ Dextrose (Levaquin 500mg/ D5W 100 ml (Pmx)) 100 ml @ 100 mls/hr Q24H IVPB Last administered on 10/09/16 15:05; Admin Dose 100 MLS/HR; Start 10/06/16 at 15:30 Methylprednisolone Sodium Succinate (Solu-Medrol) 40 mg Q12 IV Last administered on 10/10/16 10:54; Admin Dose 40 MG; Start 10/08/16 at 21:00 AVERY VILLARREAL Oct 10, 2016 15:09
[2016-10-10] MEDS: LEVOFLOXACIN 500MG/D5W (PMX) 100 ML IVPB SCH (15:11)
[2016-10-10] MEDS: ATORVASTATIN 10 MG TAB PO SCH (20:58)
[2016-10-10] MEDS: ACETAMINOPHEN 325 MG TAB PO PRN (21:20)
[2016-10-11] VITALS (11 sets, daily range): BP systolic 93–124; BP diastolic 61–80; PULSE 56–70; RESP 18–20
[2016-10-11] MEDS: ALBUTEROL/IPRATROPIUM (NEB) 3 ML AMP HHN SCH ×4 (01:05→19:35)
[2016-10-11] MEDS: ACCU-CHEK XX SCH (02:00)
[2016-10-11] MEDS: PANTOPRAZOLE (EC) 40 MG TAB PO SCH (06:09)
[2016-10-11] MEDS: LEVOTHYROXINE 100 MCG TAB PO SCH (06:09)
[2016-10-11] MEDS: metFORMIN (XR) 500 MG TAB PO SCH ×2 (08:53→18:50)
[2016-10-11] MEDS: INSULIN ASPART [NOVOLOG] 3 ML PEN SC SCH ×4 (08:53→20:41)
[2016-10-11] MEDS: ASPIRIN 81 MG TAB PO SCH (08:54)
[2016-10-11] MEDS: GABAPENTIN 300 MG CAP PO SCH ×2 (08:54→20:32)
[2016-10-11] MEDS: MULTIVITAMINS/MINERALS TAB PO SCH (08:54)
[2016-10-11] MEDS: FERROUS SULFATE (EC) 325 MG TAB PO SCH (08:54)
[2016-10-11] MEDS: EZETIMIBE 10 MG TAB PO SCH (08:55)
[2016-10-11] MEDS: METHYLPREDNISOLONE 40 MG INJ IV SCH ×2 (08:55→20:32)
[2016-10-11] MEDS: MAGNESIUM HYDROXIDE 30ML CUP PO SCH (08:55)
[2016-10-11] MEDS: LINAGLIPTIN 5 MG TABLET PO SCH (08:56)
[2016-10-11] MEDS: HEPARIN 5,000 UNIT/0.5 ML VIAL SC SCH ×2 (08:59→20:41)
--- NOTE | 2016-10-11 11:24 | CONS ---
Date/Time of Note Date/Time of Note DATE: 10/11/16 TIME: 11:22 Assessment/Plan Assessment/Plan Additional Assessment/Plan 1. The patient with history of chest pain. She has multiple risk factors for coronary artery disease. Will advise ischemic risk stratification while the patient is in the hospital. Stress test NEGATIVE FOR ISCHEMIA. 2. Hypertension. Blood pressure modestly well controlled. Will see if she can tolerate a small dose of a beta justa. Other than that, conservative therapy and stress test advisable for now. BETTER NOW. 3. Obesity. Significant weight loss advised. 4. Diabetes. Continue diabetic optimization care per primary team. Will follow expectantly. 5. Hypertension. Blood pressure modestly well controlled. Will add beta justa now.WELL RX. 6. Evaluation for CEA in progress. Consultation Date/Type/Reason Admit Date/Time Oct 06, 2016 at 15:20 Initial Consult Date Type of Consultation: Cardiology Referring Provider: DANETTE JUAREZ MD 24 HR Interval Summary Free Text/Dictation No acute events - BP stable - STRESS TEST NEGATIVE this admission. ROS: No fever, no chills, no nausea, no vomiting, no diarrhea/constipation No recent weight changes No chest pain, no PND, no orthopnea No dizziness, blurred vision No thirst, no heat or cold intolerance Exam/Review of Systems Vital Signs Vitals Vital Signs Date Time Temp Pulse Resp B/P Pulse Ox O2 Delivery O2 Flow Rate FiO2 10/11/16 08:21 56 10/11/16 07:52 97.6 20 111/80 97 10/11/16 07:29 Nasal Cannula 2.0 10/08/16 13:32 21 Intake and Output 10/10/16 10/10/16 10/11/16 15:00 23:00 07:00 Intake Total 400 ml 270 ml Balance 400 ml 270 ml Exam General: WN/WD/NAD, AOx 1-2 confused HEENT: Unicetric/atraumatic/EOMI (follow commands) NECK: JVD elevated, no thyromegaly Lymph: no lymphadenopathy HEART: regular with no S3, II/ systolic murmur at apex LUNGS: Coarse sounds ABD: soft, NT, ND, +BS : Intact Neuro: h/o CVA SKIN: chronic changes EXT: trace edema Results Result Diagram: 10/08/16 1350 10/09/16 0550 Results 24 hrs Laboratory Tests Test 10/10/16 12:01 10/10/16 17:06 10/10/16 20:41 10/11/16 08:02 Bedside Glucose 161 174 142 160 Medications Medications Current Medications Atorvastatin Calcium (Lipitor) 10 mg HS PO Last administered on 10/10/16 20:58 ; Admin Dose 10 MG; Start 10/04/16 at 21:00 EZETIMIBE (Zetia) 10 mg DAILY PO Last administered on 10/11/16 08:55; Admin Dose 10 MG; Start 10/05/16 at 09:00 Ferrous Sulfate (Ferrous Sulfate (Ec)) 325 mg DAILY PO Last administered on 08:54; Admin Dose 325 MG; Start 10/05/16 at 09:00 Gabapentin (Neurontin) 300 mg BID PO Last administered on 10/11/16 08:54; Admin Dose 300 MG; Start 10/04/16 at 21:00 Linagliptin (Tradjenta) 5 mg QAM PO Last administered on 10/11/16 08:56; Admin Dose 5 MG; Start 10/05/16 at 09:00 Magnesium Hydroxide (Milk Of Mag) 30 ml DAILY PO Last administered on 08:55; Admin Dose 30 ML; Start 10/05/16 at 09:00 Heparin Sodium (Porcine) (Heparin (5000 Units/0.5 ml)) 5,000 unit Q12 SC Last administered on 10/11/16 08:59; Admin Dose 5,000 UNIT; Start 10/04/16 at 21:00 Multivitamins/ Minerals (Theragran-M) 1 tab DAILY PO Last administered on 08:54; Admin Dose 1 TAB; Start 10/05/16 at 09:00 Ondansetron HCl (Zofran Tab) 4 mg Q6H PRN PO NAUSEA AND/OR VOMITING; Start 10/04 at 16:00 Aspirin (Aspirin) 81 mg DAILY PO Last administered on 10/11/16 08:54; Admin Dose 81 MG; Start 10/05/16 at 09:00 Nitroglycerin (Nitroglycerin (Sl Tab) 0.4 Mg) 1 tab Q5M PRN SL CHEST PAIN; Start 10/04/16 at 16:00 Acetaminophen (Tylenol Tab) 650 mg Q6H PRN PO PAIN LEVEL 1-3 OR FEVER Last administered on 10/10/16 21:20; Admin Dose 650 MG; Start 10/04/16 at 16:00 Morphine Sulfate (morphine) 1 mg Q4H PRN IV PAIN LEVEL 7-10; Start 10/04/16 at 16:00 Docusate Sodium (Colace) 100 mg Q12H PRN PO CONSTIPATION Last administered on 20:50; Admin Dose 100 MG; Start 10/04/16 at 16:00 Bisacodyl (Dulcolax Supp) 10 mg DAILY PRN [place] CONSTIPATION; Start 10/04/16 at 16: 00 Pantoprazole (Protonix Tab) 40 mg DAILY@06 PO Last administered on 10/11/16 06 :09; Admin Dose 40 MG; Start 10/05/16 at 06:00 Miscellaneous Information 1 ea NOTE XX ; Start 10/04/16 at 17:00 Glucose (Glutose) 15 gm Q15M PRN PO DECREASED GLUCOSE; Start 10/04/16 at 17:00 Glucose (Glutose) 22.5 gm Q15M PRN PO DECREASED GLUCOSE; Start 10/04/16 at 17:00 Dextrose (D50w Syringe) 25 ml Q15M PRN IV DECREASED GLUCOSE; Start 10/04/16 at 17:00 Dextrose (D50w Syringe) 50 ml Q15M PRN IV DECREASED GLUCOSE; Start 10/04/16 at 17:00 Glucagon (Glucagen) 1 mg Q15M PRN IM DECREASED GLUCOSE; Start 10/04/16 at 17:00 Glucose (Glutose) 15 gm Q15M PRN BUCCAL DECREASED GLUCOSE; Start 10/04/16 at 17: 00 Carvedilol (Coreg) 6.25 mg BID PO Last administered on 10/10/16 20:59; Admin Dose 6.25 MG; Start 10/04/16 at 21:00 Diagnostic Test (Pha) 1 ea 1 ea 02 XX ; Start 10/05/16 at 02:00 Levofloxacin/ Dextrose (Levaquin 500mg/ D5W 100 ml (Pmx)) 100 ml @ 100 mls/hr Q24H IVPB Last administered on 10/10/16 15:11; Admin Dose 100 MLS/HR; Start at 15:30 Methylprednisolone Sodium Succinate (Solu-Medrol) 40 mg Q12 IV Last administered on 10/11/16t 08:55; Admin Dose 40 MG; Start 10/08/16 at 21:00 MARIANNE CRISTOBAL MD Oct 11, 2016 11:24
--- NOTE | 2016-10-11 13:29 | PN ---
Date/Time of Note Date/Time of Note DATE: 10/11/16 TIME: 13:28 Assessment/Plan Lines/Catheters IV Catheter Type (from [facility]): Saline Lock Foster in Place (from [facility]): No Assessment/Plan Chief Complaint/Hosp Course IMPRESSION: 1. 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 no plan for surgery on the Right ICA will get CT angio brain : High-grade segmental narrowing with only a tiny, thin string of vascular intraluminal contrast seen in the high cervical right internal carotid artery, petrous segment, and proximal cavernous segment. There appears to be focal occlusion at the distal cavernous right ICA segment with reconstitution of contrast enhancement in the supraclinoid right ICA. will evaluate for possible Left endartrectomy when more stable Problems: Subjective 24 Hr Interval Summary Constitutional: improved Pain Control: mild Exam/Review of Systems Vital Signs Vitals Vital Signs Date Time Temp Pulse Resp B/P Pulse Ox O2 Delivery O2 Flow Rate FiO2 10/11/16 13:14 67 18 94 Nasal Cannula 2.0 10/11/16 11:50 98.0 93/64 10/08/16 13:32 21 Intake and Output 10/10/16 10/10/16 10/11/16 15:00 23:00 07:00 Intake Total 400 ml 270 ml Balance 400 ml 270 ml Exam Respiratory: clear to auscultation, normal air movement Cardiovascular: nl pulses, regular rate and rhythm Gastrointestinal: nl liver, spleen, non-tender, soft Results Result Diagram: 10/08/16 1350 10/09/16 0550 CHRIS DUQUE MD Oct 11, 2016 13:29
[2016-10-11] MEDS: LEVOFLOXACIN 500MG/D5W (PMX) 100 ML IVPB SCH (15:58)
--- NOTE | 2016-10-11 17:15 | PN ---
Date/Time of Note Date/Time of Note DATE: 10/11/16 TIME: 17:14 Assessment/Plan Lines/Catheters IV [facility]from [facility]): Saline Lock Urinary Cath still in place: No Assessment/Plan Assessment/Plan - Chest pain. Dr. Goldsmith is following and cardiology consultation. Cardiac enzymes are negative 3. Negative stress test. - non at present - Dyslipidemia. Continue statin. - Diabetes mellitus. Continue Tradjenta and metformin. - Hypothyroidism. Continue levothyroxine. TSH is elevated will check T4 patient with history of refusing medication, would not increase the dose of levothyroxine at this time. - History of stroke with left-sided hemiplegia. Continue aspirin. - Systemic inflammatory response syndrome with leukocytosis, follow-up on urine culture. - Hypomagnesemia, will replace magnesium. - Bilateral carotid stenosis. Dr Fernandez is asked to see pt in vascular surgery consultation. - Continue heparin for deep venous thrombosis prophylaxis. Further recommendations based on clinical course. Plan of care discussed with Dr. Stanley. Subjective 24 Hr Interval Summary Free Text/Dictation Late entry for 10/10/16 Constitutional: improved Eyes: no complaints Respiratory: no complaints Cardiovascular: no complaints Gastrointestinal: no complaints Genitourinary: no complaints Musculoskeletal: no complaints Skin: no complaints Exam/Review of Systems Vital Signs Vitals Vital Signs Date Time Temp Pulse Resp B/P Pulse Ox O2 Delivery O2 Flow Rate FiO2 10/11/16 16:03 98.6 65 20 122/62 98 10/11/16 13:14 Nasal Cannula 2.0 10/08/16 13:32 21 Intake and Output 10/10/16 10/10/16 10/11/16 15:00 23:00 07:00 Intake Total 400 ml 270 ml Balance 400 ml 270 ml Exam Constitutional: alert, well developed Psych: nl mood/affect Eyes: EOMI ENMT: nl external ears & nose Neck: non-tender Respiratory: clear to auscultation Cardiovascular: nl pulses Gastrointestinal: non-tender, soft Musculoskeletal: nl extremities to inspection Neurological: nl speech Skin: nl turgor Lymph: nontender Results Result Diagram: 10/08/16 1350 10/09/16 0550 Results 24 hrs Laboratory Tests Test 10/10/16 20:41 10/11/16 08:02 10/11/16 11:59 10/11/16 17:08 Bedside Glucose 142 160 183 331 H Medications Medications Current Medications Atorvastatin Calcium (Lipitor) 10 mg HS PO Last administered on 10/10/16 20:58 ; Admin Dose 10 MG; Start 10/04/16 at 21:00 EZETIMIBE (Zetia) 10 mg DAILY PO Last administered on 10/11/16 08:55; Admin Dose 10 MG; Start 10/05/16 at 09:00 Ferrous Sulfate (Ferrous Sulfate (Ec)) 325 mg DAILY PO Last administered on 08:54; Admin Dose 325 MG; Start 10/05/16 at 09:00 Gabapentin (Neurontin) 300 mg BID PO Last administered on 10/11/16 08:54; Admin Dose 300 MG; Start 10/04/16 at 21:00 Linagliptin (Tradjenta) 5 mg QAM PO Last administered on 10/11/16 08:56; Admin Dose 5 MG; Start 10/05/16 at 09:00 Magnesium Hydroxide (Milk Of Mag) 30 ml DAILY PO Last administered on 08:55; Admin Dose 30 ML; Start 10/05/16 at 09:00 Heparin Sodium (Porcine) (Heparin (5000 Units/0.5 ml)) 5,000 unit Q12 SC Last administered on 10/11/16 08:59; Admin Dose 5,000 UNIT; Start 10/04/16 at 21:00 Multivitamins/ Minerals (Theragran-M) 1 tab DAILY PO Last administered on 08:54; Admin Dose 1 TAB; Start 10/05/16 at 09:00 Ondansetron HCl (Zofran Tab) 4 mg Q6H PRN PO NAUSEA AND/OR VOMITING; Start 10/04 at 16:00 Aspirin (Aspirin) 81 mg DAILY PO Last administered on 10/11/16 08:54; Admin Dose 81 MG; Start 10/05/16 at 09:00 Nitroglycerin (Nitroglycerin (Sl Tab) 0.4 Mg) 1 tab Q5M PRN SL CHEST PAIN; Start 10/04/16 at 16:00 Acetaminophen (Tylenol Tab) 650 mg Q6H PRN PO PAIN LEVEL 1-3 OR FEVER Last administered on 10/10/16 21:20; Admin Dose 650 MG; Start 10/04/16 at 16:00 Morphine Sulfate (morphine) 1 mg Q4H PRN IV PAIN LEVEL 7-10; Start 10/04/16 at 16:00 Docusate Sodium (Colace) 100 mg Q12H PRN PO CONSTIPATION Last administered on 20:50; Admin Dose 100 MG; Start 10/04/16 at 16:00 Bisacodyl (Dulcolax Supp) 10 mg DAILY PRN ME CONSTIPATION; Start 10/04/16 at 16: 00 Pantoprazole (Protonix Tab) 40 mg DAILY@06 PO Last administered on 10/11/16 06 :09; Admin Dose 40 MG; Start 10/05/16 at 06:00 Miscellaneous Information 1 ea NOTE XX ; Start 10/04/16 at 17:00 Glucose (Glutose) 15 gm Q15M PRN PO DECREASED GLUCOSE; Start 10/04/16 at 17:00 Glucose (Glutose) 22.5 gm Q15M PRN PO DECREASED GLUCOSE; Start 10/04/16 at 17:00 Dextrose (D50w Syringe) 25 ml Q15M PRN IV DECREASED GLUCOSE; Start 10/04/16 at 17:00 Dextrose (D50w Syringe) 50 ml Q15M PRN IV DECREASED GLUCOSE; Start 10/04/16 at 17:00 Glucagon (Glucagen) 1 mg Q15M PRN IM DECREASED GLUCOSE; Start 10/04/16 at 17:00 Glucose (Glutose) 15 gm Q15M PRN BUCCAL DECREASED GLUCOSE; Start 10/04/16 at 17: 00 Carvedilol (Coreg) 6.25 mg BID PO Last administered on 10/10/16 20:59; Admin Dose 6.25 MG; Start 10/04/16 at 21:00 Diagnostic Test (Pha) 1 ea 1 ea 02 XX ; Start 10/05/16 at 02:00 Levofloxacin/ Dextrose (Levaquin 500mg/ D5W 100 ml (Pmx)) 100 ml @ 100 mls/hr Q24H IVPB Last administered on 10/11/16 15:58; Admin Dose 100 MLS/HR; Start at 15:30 Methylprednisolone Sodium Succinate (Solu-Medrol) 40 mg Q12 IV Last administered on 10/11/16 08:55; Admin Dose 40 MG; Start 10/08/16 at 21:00 FERMÍN PORTILLO Oct 11, 2016 17:15
[2016-10-11] MEDS: FUROSEMIDE 40 MG INJ IV SCH (17:45)
[2016-10-11] MEDS: ATORVASTATIN 10 MG TAB PO SCH (20:33)
--- NOTE | 2016-10-11 21:54 | PN ---
Date/Time of Note Date/Time of Note DATE: 10/11/16 TIME: 21:52 Assessment/Plan VTE Prophylaxis VTE Prophylaxis Intervention: heparin Lines/Catheters IV C[facility] Type [facility]from [facility] Saline Lock Urinary Cath still in place: No Assessment/Plan Assessment/Plan - Chest pain. Dr. Goldsmith is following and cardiology consultation. Cardiac enzymes are negative 3. Negative stress test. - non at present - Dyslipidemia. Continue statin. - Diabetes mellitus. Continue Tradjenta and metformin. - Hypothyroidism. Continue levothyroxine. TSH is elevated will check T4 patient with history of refusing medication, would not increase the dose of levothyroxine at this time. - History of stroke with left-sided hemiplegia. Continue aspirin. - Systemic inflammatory response syndrome with leukocytosis, follow-up on urine culture. - Hypomagnesemia, will replace magnesium. - Bilateral carotid stenosis. Dr Fernandez is asked to see pt in vascular surgery consultation. - Continue heparin for deep venous thrombosis prophylaxis. Further recommendations based on clinical course. Plan of care discussed with Dr. Stanley. Subjective 24 Hr Interval Summary Eyes: no complaints ENT: no complaints Respiratory: no complaints Cardiovascular: no complaints Gastrointestinal: no complaints Genitourinary: no complaints Musculoskeletal: no complaints Skin: no complaints Neurologic: no complaints Endocrine: no complaints Exam/Review of Systems Vital Signs Vitals Vital Signs Date Time Temp Pulse Resp B/P Pulse Ox O2 Delivery O2 Flow Rate FiO2 10/11/16 20:29 64 10/11/16 20:06 97.8 18 124/64 94 10/11/16 19:35 Nasal Cannula 4.0 10/08/16 13:32 21 Intake and Output 10/10/16 10/10/16 10/11/16 15:00 23:00 07:00 Intake Total 400 ml 270 ml Balance 400 ml 270 ml Exam Constitutional: alert, well developed Psych: nl mood/affect Eyes: EOMI ENMT: nl external ears & nose Neck: non-tender Respiratory: clear to auscultation Cardiovascular: nl pulses Gastrointestinal: non-tender, soft Musculoskeletal: nl extremities to inspection Neurological: nl mental status, nl speech Skin: nl turgor Lymph: nontender Results Result Diagram: 10/08/16 1350 10/09/16 0550 Results 24 hrs Laboratory Tests Test 10/11/16 08:02 10/11/16 11:59 10/11/16 17:08 10/11/16 20:40 Bedside Glucose 160 183 331 H 150 Medications Medications Current Medications Atorvastatin Calcium (Lipitor) 10 mg HS PO Last administered on 10/11/16 20:33 ; Admin Dose 10 MG; Start 10/04/16 at 21:00 EZETIMIBE (Zetia) 10 mg DAILY PO Last administered on 10/11/16 08:55; Admin Dose 10 MG; Start 10/05/16 at 09:00 Ferrous Sulfate (Ferrous Sulfate (Ec)) 325 mg DAILY PO Last administered on 08:54; Admin Dose 325 MG; Start 10/05/16 at 09:00 Gabapentin (Neurontin) 300 mg BID PO Last administered on 10/11/16 20:32; Admin Dose 300 MG; Start 10/04/16 at 21:00 Linagliptin (Tradjenta) 5 mg QAM PO Last administered on 10/11/16 08:56; Admin Dose 5 MG; Start 10/05/16 at 09:00 Magnesium Hydroxide (Milk Of Mag) 30 ml DAILY PO Last administered on 08:55; Admin Dose 30 ML; Start 10/05/16 at 09:00 Heparin Sodium (Porcine) (Heparin (5000 Units/0.5 ml)) 5,000 unit Q12 SC Last administered on 10/11/16 20:41; Admin Dose 5,000 UNIT; Start 10/04/16 at 21:00 Multivitamins/ Minerals (Theragran-M) 1 tab DAILY PO Last administered on 08:54; Admin Dose 1 TAB; Start 10/05/16 at 09:00 Ondansetron HCl (Zofran Tab) 4 mg Q6H PRN PO NAUSEA AND/OR VOMITING; Start 10/04 at 16:00 Aspirin (Aspirin) 81 mg DAILY PO Last administered on 10/11/16 08:54; Admin Dose 81 MG; Start 10/05/16 at 09:00 Nitroglycerin (Nitroglycerin (Sl Tab) 0.4 Mg) 1 tab Q5M PRN SL CHEST PAIN; Start 10/04/16 at 16:00 Acetaminophen (Tylenol Tab) 650 mg Q6H PRN PO PAIN LEVEL 1-3 OR FEVER Last administered on 10/10/16 21:20; Admin Dose 650 MG; Start 10/04/16 at 16:00 Morphine Sulfate (morphine) 1 mg Q4H PRN IV PAIN LEVEL 7-10; Start 10/04/16 at 16:00 Docusate Sodium (Colace) 100 mg Q12H PRN PO CONSTIPATION Last administered on 20:50; Admin Dose 100 MG; Start 10/04/16 at 16:00 Bisacodyl (Dulcolax Supp) 10 mg DAILY PRN HI CONSTIPATION; Start 10/04/16 at 16: 00 Pantoprazole (Protonix Tab) 40 mg DAILY@06 PO Last administered on 10/11/16 06 :09; Admin Dose 40 MG; Start 10/05/16 at 06:00 Miscellaneous Information 1 ea NOTE XX ; Start 10/04/16 at 17:00 Glucose (Glutose) 15 gm Q15M PRN PO DECREASED GLUCOSE; Start 10/04/16 at 17:00 Glucose (Glutose) 22.5 gm Q15M PRN PO DECREASED GLUCOSE; Start 10/04/16 at 17:00 Dextrose (D50w Syringe) 25 ml Q15M PRN IV DECREASED GLUCOSE; Start 10/04/16 at 17:00 Dextrose (D50w Syringe) 50 ml Q15M PRN IV DECREASED GLUCOSE; Start 10/04/16 at 17:00 Glucagon (Glucagen) 1 mg Q15M PRN IM DECREASED GLUCOSE; Start 10/04/16 at 17:00 Glucose (Glutose) 15 gm Q15M PRN BUCCAL DECREASED GLUCOSE; Start 10/04/16 at 17: 00 Carvedilol (Coreg) 6.25 mg BID PO Last administered on 10/11/16 20:37; Admin Dose 6.25 MG; Start 10/04/16 at 21:00 Diagnostic Test (Pha) 1 ea 1 ea 02 XX ; Start 10/05/16 at 02:00 Levofloxacin/ Dextrose (Levaquin 500mg/ D5W 100 ml (Pmx)) 100 ml @ 100 mls/hr Q24H IVPB Last administered on 10/11/16 15:58; Admin Dose 100 MLS/HR; Start at 15:30 Methylprednisolone Sodium Succinate (Solu-Medrol) 40 mg Q12 IV Last administered on 4/11/17at 20:32; Admin Dose 40 MG; Start 10/08/16 at 21:00 Potassium Chloride (Klor-Con 20) 20 meq DAILY PO ; Start 10/12/16 at 09:00 FERMÍN PORTILLO Oct 11, 2016 21:53
[2016-10-12] VITALS (12 sets, daily range): BP systolic 104–139; BP diastolic 56–73; PULSE 57–68; RESP 15–20
[2016-10-12] MEDS: ALBUTEROL/IPRATROPIUM (NEB) 3 ML AMP HHN SCH ×4 (01:35→19:37)
[2016-10-12] MEDS: ACCU-CHEK XX SCH (02:00)
--- NOTE | 2016-10-12 05:39 | RADRPT ---
PROCEDURE: XR Chest. CLINICAL INDICATION: Shortness of breath TECHNIQUE: An AP view of the chest was obtained. COMPARISON: Chest x-ray dated 10/07/2016 FINDINGS: There is prominence of the interstitial and central pulmonary vascular markings with small bilater al pleural effusions. No focal airspace opacification or pneumothorax is seen. The cardiomediastin al silhouette is mildly enlarged . Calcifications are seen within the aortic arch. The osseous str uctures demonstrate senescent changes. IMPRESSION: 1. Findings suggestive of pulmonary vascular congestion with small bilateral pleural effusions. Fi ndings are mildly increased when compared to the prior examination. 2. Mild cardiomegaly and aortic atherosclerosis. RPTAT: HH .Oksana Conte MD, MD Date Time Electronically viewed and signed by .Oksana Conte MD, on 10/12/2016 05:39 .G/
[2016-10-12] MEDS: LEVOTHYROXINE 100 MCG TAB PO SCH (06:20)
[2016-10-12] MEDS: PANTOPRAZOLE (EC) 40 MG TAB PO SCH (06:20)
[2016-10-12] MEDS: FUROSEMIDE 40 MG INJ IV SCH ×2 (06:20→17:13)
[2016-10-12 06:35] LABS: ADD SCAN DIFF NO
[2016-10-12 06:39] LABS: BASOPHILS % 0.2 % (0.0-2.0); HEMATOCRIT 37.1 % (37.0-47.0); HEMOGLOBIN 11.8 g/dl (12.0-16.0); LYMPHOCYTES # 1.3 10^3/ul (0.8-2.9); LYMPHOCYTES % 13.1 % (15.0-51.0); MEAN CORPUSCULAR HEMOGLOBIN 28.7 pg (29.0-33.0); MEAN CORPUSCULAR HGB CONC 31.8 g/dl (32.0-37.0); MEAN CORPUSCULAR VOLUME 90.3 fl (82.0-101.0); MEAN PLATELET VOLUME 9.1 fl (7.4-10.4); MONOCYTE # 0.6 10^3/ul (0.3-0.9); MONOCYTES % 5.9 % (0.0-11.0); NEUTROPHIL # 7.3 10^3/ul (1.6-7.5); NEUTROPHILS % 76.4 % (39.0-77.0); PLATELET COUNT 393 10^3/UL (140-415); RED BLOOD COUNT 4.11 10^6/ul (4.20-5.40); WHITE BLOOD COUNT 9.6 10^3/ul (4.8-10.8)
[2016-10-12 06:45] LABS: POTASSIUM 4.9 mmol/L (3.5-5.1)
[2016-10-12 06:47] LABS: CREATININE 1.12 mg/dl (0.44-1.00)
[2016-10-12 06:48] LABS: CALCIUM 8.9 mg/dl (8.4-10.2)
[2016-10-12] MEDS: metFORMIN (XR) 500 MG TAB PO SCH ×2 (08:00→17:17)
[2016-10-12] MEDS: INSULIN ASPART [NOVOLOG] 3 ML PEN SC SCH ×4 (08:35→20:50)
[2016-10-12] MEDS: METHYLPREDNISOLONE 40 MG INJ IV SCH ×2 (08:36→20:51)
[2016-10-12] MEDS: HEPARIN 5,000 UNIT/0.5 ML VIAL SC SCH ×2 (08:36→20:58)
[2016-10-12] MEDS: POTASSIUM CHLORIDE (SR) 20 MEQ TAB PO SCH (08:38)
[2016-10-12] MEDS: ASPIRIN 81 MG TAB PO SCH (08:39)
[2016-10-12] MEDS: FERROUS SULFATE (EC) 325 MG TAB PO SCH (08:39)
[2016-10-12] MEDS: MAGNESIUM HYDROXIDE 30ML CUP PO SCH (08:39)
[2016-10-12] MEDS: MULTIVITAMINS/MINERALS TAB PO SCH (08:39)
[2016-10-12] MEDS: LINAGLIPTIN 5 MG TABLET PO SCH (08:39)
[2016-10-12] MEDS: GABAPENTIN 300 MG CAP PO SCH ×2 (08:39→20:51)
[2016-10-12] MEDS: EZETIMIBE 10 MG TAB PO SCH (08:47)
--- NOTE | 2016-10-12 13:41 | CONS ---
Date/Time of Note Date/Time of Note DATE: 10/12/16 TIME: 13:36 Assessment/Plan Assessment/Plan Chief Complaint/Hosp Course IMp: 1.chest pain-negative troponin x 3. No ischemia by lexiscan. NL EF by echo this admit 2.HTN-reasonable control 3.HL 4.H/O CVA with L sided hemiplegia 5.DM 6.Carotid stenosis 7.CHF-diastolic acute on chronic by echo this admit/elevated BNP 8. Renal insuff-mild Recc: -tele -Continue zetia/statin -Continue asa -Continue coreg and follow BP closely -continue lasix diuresis and follow creatnine closely -Continue steroids/bronchodilators -Being evaluated for possible CEA by vascular surgery Problems: Consultation Date/Type/Reason Admit Date/Time Oct 06, 2016 at 15:20 Initial Consult Date 10/05/2016 Type of Consultation: Cardiology Reason for Consultation Chest pain/sob Referring Provider: DANETTE JUAREZ MD Exam/Review of Systems Vital Signs Vitals Vital Signs Date Time Temp Pulse Resp B/P Pulse Ox O2 Delivery O2 Flow Rate FiO2 10/12/16 12:03 59 10/12/16 12:01 98.2 20 139/64 92 10/12/16 08:20 Nasal Cannula 3.0 10/08/16 13:32 21 Intake and Output 10/11/16 10/11/16 10/12/16 14:59 22:59 06:59 Intake Total 600 ml 200 ml Balance 600 ml 200 ml Exam Review of Systems: CONSTITUTIONAL: No fevers, chills. PULMONARY: improved sob CARDIOVASCULAR: No chest pain/palpitations GASTROINTESTINAL: No nausea/vomiting. GENITOURINARY: No hematuria/dysuria. MUSCULOSKELETAL: No myagias/arthalgias. PSYCHIATRIC: The patient denies depression. NEUROLOGIC: No weakness Constitutional: alert Psych: no complaints Head: normocephalic ENMT: mucosa pink and moist Neck: jvd (9 cm water), supple Respiratory: diminished breath sounds Cardiovascular: regular rate and rhythm Gastrointestinal: non-tender, soft Musculoskeletal: muscle tone (normal) Extremities: edema (none) Results Result Diagram: 10/12/16 0541 10/12/16 0541 Results 24 hrs Laboratory Tests Test 10/11/16 17:08 10/11/16 20:40 10/12/16 05:41 10/12/16 08:33 Bedside Glucose 331 H 150 159 White Blood Count 9.6 Red Blood Count 4.11 L Hemoglobin 11.8 L Hematocrit 37.1 Mean Corpuscular Volume 90.3 Mean Corpuscular Hemoglobin 28.7 L Mean Corpuscular Hemoglobin Concent 31.8 L Red Cell Distribution Width 15.0 H Platelet Count 393 # Mean Platelet Volume 9.1 Neutrophils % 76.4 Lymphocytes % 13.1 L Monocytes % 5.9 Eosinophils % 0.0 Basophils % 0.2 Nucleated Red Blood Cells % 0.0 Neutrophils # 7.3 Lymphocytes # 1.3 Monocytes # 0.6 Eosinophils # 0.0 Basophils # 0.0 Nucleated Red Blood Cells # 0.0 Sodium Level 137 Potassium Level 4.9 Chloride Level 99 Carbon Dioxide Level 21 Anion Gap 22 H Blood Urea Nitrogen 37 H Creatinine 1.12 H Glucose Level 187 Calcium Level 8.9 Test 10/12/16 12:14 Bedside Glucose 190 Medications Medications Current Medications Atorvastatin Calcium (Lipitor) 10 mg HS PO Last administered on 10/11/16 20:33 ; Admin Dose 10 MG; Start 10/04/16 at 21:00 EZETIMIBE (Zetia) 10 mg DAILY PO Last administered on 10/12/16 08:47; Admin Dose 10 MG; Start 10/05/16 at 09:00 Ferrous Sulfate (Ferrous Sulfate (Ec)) 325 mg DAILY PO Last administered on 08:39; Admin Dose 325 MG; Start 10/05/16 at 09:00 Gabapentin (Neurontin) 300 mg BID PO Last administered on 10/12/16 08:39; Admin Dose 300 MG; Start 10/04/16 at 21:00 Linagliptin (Tradjenta) 5 mg QAM PO Last administered on 10/12/16 08:39; Admin Dose 5 MG; Start 10/05/16 at 09:00 Magnesium Hydroxide (Milk Of Mag) 30 ml DAILY PO Last administered on 08:39; Admin Dose 30 ML; Start 10/05/16 at 09:00 Heparin Sodium (Porcine) (Heparin (5000 Units/0.5 ml)) 5,000 unit Q12 SC Last administered on 10/12/16 08:36; Admin Dose 5,000 UNIT; Start 10/04/16 at 21:00 Multivitamins/ Minerals (Theragran-M) 1 tab DAILY PO Last administered on 08:39; Admin Dose 1 TAB; Start 10/05/16 at 09:00 Ondansetron HCl (Zofran Tab) 4 mg Q6H PRN PO NAUSEA AND/OR VOMITING; Start 10/04 at 16:00 Aspirin (Aspirin) 81 mg DAILY PO Last administered on 10/12/16 08:39; Admin Dose 81 MG; Start 10/05/16 at 09:00 Nitroglycerin (Nitroglycerin (Sl Tab) 0.4 Mg) 1 tab Q5M PRN SL CHEST PAIN; Start 10/04/16 at 16:00 Acetaminophen (Tylenol Tab) 650 mg Q6H PRN PO PAIN LEVEL 1-3 OR FEVER Last administered on 10/10/16 21:20; Admin Dose 650 MG; Start 10/04/16 at 16:00 Morphine Sulfate (morphine) 1 mg Q4H PRN IV PAIN LEVEL 7-10; Start 10/04/16 at 16:00 Docusate Sodium (Colace) 100 mg Q12H PRN PO CONSTIPATION Last administered on 20:50; Admin Dose 100 MG; Start 10/04/16 at 16:00 Bisacodyl (Dulcolax Supp) 10 mg DAILY PRN [place] CONSTIPATION; Start 10/04/16 at 16: 00 Pantoprazole (Protonix Tab) 40 mg DAILY@06 PO Last administered on 10/12/16 06 :20; Admin Dose 40 MG; Start 10/05/16 at 06:00 Miscellaneous Information 1 ea NOTE XX ; Start 10/04/16 at 17:00 Glucose (Glutose) 15 gm Q15M PRN PO DECREASED GLUCOSE; Start 10/04/16 at 17:00 Glucose (Glutose) 22.5 gm Q15M PRN PO DECREASED GLUCOSE; Start 10/04/16 at 17:00 Dextrose (D50w Syringe) 25 ml Q15M PRN IV DECREASED GLUCOSE; Start 10/04/16 at 17:00 Dextrose (D50w Syringe) 50 ml Q15M PRN IV DECREASED GLUCOSE; Start 10/04/16 at 17:00 Glucagon (Glucagen) 1 mg Q15M PRN IM DECREASED GLUCOSE; Start 10/04/16 at 17:00 Glucose (Glutose) 15 gm Q15M PRN BUCCAL DECREASED GLUCOSE; Start 10/04/16 at 17: 00 Carvedilol (Coreg) 6.25 mg BID PO Last administered on 10/11/16 20:37; Admin Dose 6.25 MG; Start 10/04/16 at 21:00 Diagnostic Test (Pha) 1 ea 1 ea 02 XX ; Start 10/05/16 at 02:00 Levofloxacin/ Dextrose (Levaquin 500mg/ D5W 100 ml (Pmx)) 100 ml @ 100 mls/hr Q24H IVPB Last administered on 10/11/16 15:58; Admin Dose 100 MLS/HR; Start at 15:30 Methylprednisolone Sodium Succinate (Solu-Medrol) 40 mg Q12 IV Last administered on 10/12/16 08:36; Admin Dose 40 MG; Start 10/08/16 at 21:00 Potassium Chloride (Klor-Con 20) 20 meq DAILY PO Last administered on 08:38; Admin Dose 20 MEQ; Start 10/12/16 at 09:00 AVERY VILLARREAL Oct 12, 2016 13:41
[2016-10-12] MEDS: LEVOFLOXACIN 500MG/D5W (PMX) 100 ML IVPB SCH (15:43)
--- NOTE | 2016-10-12 19:03 | PN ---
Date/Time of Note Date/Time of Note DATE: 10/12/16 TIME: 19:00 Assessment/Plan Lines/Catheters IV Catheter Type (from Nrs): Saline Lock Foster in Place (from Nrs): No Assessment/Plan Chief Complaint/Hosp Course IMPRESSION: 1. 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 no plan for surgery on the Right ICA will get CT angio brain : High-grade segmental narrowing with only a tiny, thin string of vascular intraluminal contrast seen in the high cervical right internal carotid artery, petrous segment, and proximal cavernous segment. There appears to be focal occlusion at the distal cavernous right ICA segment with reconstitution of contrast enhancement in the supraclinoid right ICA. will evaluate for possible Left endartrectomy when more stable This can be done as out pt Problems: Subjective 24 Hr Interval Summary Constitutional: improved Pain Control: mild Exam/Review of Systems Vital Signs Vitals Vital Signs Date Time Temp Pulse Resp B/P Pulse Ox O2 Delivery O2 Flow Rate FiO2 10/12/16 16:06 67 10/12/16 15:47 98.2 20 128/60 94 10/12/16 14:06 Nasal Cannula 3.0 10/08/16 13:32 21 Intake and Output 10/11/16 10/11/16 10/12/16 15:00 23:00 07:00 Intake Total 600 ml 200 ml Balance 600 ml 200 ml Exam Neck: non-tender, supple Respiratory: clear to auscultation, normal air movement Cardiovascular: nl pulses, regular rate and rhythm Gastrointestinal: nl liver, spleen, non-tender, soft Results Result Diagram: 10/12/16 0541 10/12/16 0541 CHRIS DUQUE MD Oct 12, 2016 19:03
[2016-10-12] MEDS: ATORVASTATIN 10 MG TAB PO SCH (20:51)
[2016-10-13] VITALS (13 sets, daily range): BP systolic 81–124; BP diastolic 50–60; PULSE 63–71; RESP 15–22
[2016-10-13] MEDS: ACCU-CHEK XX SCH ×2 (00:50→21:07)
[2016-10-13] MEDS: ALBUTEROL/IPRATROPIUM (NEB) 3 ML AMP HHN SCH ×4 (02:15→21:22)
[2016-10-13] MEDS: LEVOTHYROXINE 100 MCG TAB PO SCH (06:06)
[2016-10-13] MEDS: PANTOPRAZOLE (EC) 40 MG TAB PO SCH (06:07)
[2016-10-13] MEDS: FUROSEMIDE 40 MG INJ IV SCH (06:14)
[2016-10-13 07:43] LABS: CREATININE 1.31 mg/dl (0.44-1.00); POTASSIUM 4.6 mmol/L (3.5-5.1)
[2016-10-13] MEDS: POTASSIUM CHLORIDE (SR) 20 MEQ TAB PO SCH (08:38)
[2016-10-13] MEDS: GABAPENTIN 300 MG CAP PO SCH ×2 (08:38→20:50)
[2016-10-13] MEDS: MULTIVITAMINS/MINERALS TAB PO SCH (08:38)
[2016-10-13] MEDS: METHYLPREDNISOLONE 40 MG INJ IV SCH ×2 (08:38→20:52)
[2016-10-13] MEDS: FERROUS SULFATE (EC) 325 MG TAB PO SCH (08:38)
[2016-10-13] MEDS: LINAGLIPTIN 5 MG TABLET PO SCH (08:38)
[2016-10-13] MEDS: ASPIRIN 81 MG TAB PO SCH (08:39)
[2016-10-13] MEDS: EZETIMIBE 10 MG TAB PO SCH (08:39)
[2016-10-13] MEDS: MAGNESIUM HYDROXIDE 30ML CUP PO SCH (08:39)
[2016-10-13] MEDS: INSULIN ASPART [NOVOLOG] 3 ML PEN SC SCH ×4 (08:45→21:00)
[2016-10-13] MEDS: HEPARIN 5,000 UNIT/0.5 ML VIAL SC SCH ×2 (08:46→21:08)
[2016-10-13] MEDS: metFORMIN (XR) 500 MG TAB PO SCH ×2 (10:15→17:15)
--- NOTE | 2016-10-13 14:37 | PN ---
Date/Time of Note Date/Time of Note DATE: 10/13/16 TIME: 14:35 Assessment/Plan Lines/Catheters IV C[facility]ter Type (from [facility]): Saline Lock Urinary Cath still in place: No Assessment/Plan Assessment/Plan - Chest pain. Dr. Goldsmith is following and cardiology consultation. Cardiac enzymes are negative 3. Negative stress test. - non at present - Dyslipidemia. Continue statin. - Diabetes mellitus. Continue Tradjenta and metformin. - Hypothyroidism. Continue levothyroxine. TSH is elevated will check T4 patient with history of refusing medication, would not increase the dose of levothyroxine at this time. - History of stroke with left-sided hemiplegia. Continue aspirin. - Systemic inflammatory response syndrome with leukocytosis, follow-up on urine culture. - Hypomagnesemia, will replace magnesium. - Bilateral carotid stenosis. Dr Fernandez is asked to see pt in vascular surgery consultation. - Continue heparin for deep venous thrombosis prophylaxis. Further recommendations based on clinical course. Plan of care discussed with Dr. Stanley. Subjective 24 Hr Interval Summary Free Text/Dictation Late entry 10/12/2016 Patient is getting breathing treatment, denies any chest pain. dw staff. Eyes: no complaints ENT: no complaints Respiratory: shortness of breath Cardiovascular: no complaints Gastrointestinal: no complaints Genitourinary: no complaints Musculoskeletal: no complaints Skin: no complaints Neurologic: no complaints Endocrine: no complaints Exam/Review of Systems Vital Signs Vitals Vital Signs Date Time Temp Pulse Resp B/P Pulse Ox O2 Delivery O2 Flow Rate FiO2 10/13/16 13:52 3.0 10/13/16 13:44 76 18 96 Nasal Cannula 10/13/16 11:33 97.9 110/52 Intake and Output 10/12/16 10/12/16 10/13/16 15:00 23:00 07:00 Intake Total 970 ml 120 ml Balance 970 ml 120 ml Exam Constitutional: alert, well developed Psych: nl mood/affect Head: atraumatic Eyes: EOMI, PERRL, nl sclera ENMT: nl external ears & nose Neck: non-tender Respiratory: diminished breath sounds Cardiovascular: nl pulses Gastrointestinal: non-tender, soft Musculoskeletal: nl extremities to inspection Extremities: normal pulses Neurological: nl mental status, nl speech Skin: nl turgor Results Result Diagram: 10/12/16 0541 10/13/16 0700 Results 24 hrs Laboratory Tests Test 10/12/16 17:06 10/12/16 20:49 10/13/16 07:00 10/13/16 08:35 Bedside Glucose 170 112 163 Sodium Level 134 L Potassium Level 4.6 Chloride Level 97 Carbon Dioxide Level 24 Anion Gap 18 H Blood Urea Nitrogen 49 #H Creatinine 1.31 H Glucose Level 175 Calcium Level 9.0 Test 10/13/16 12:35 Bedside Glucose 159 Medications Medications Current Medications Atorvastatin Calcium (Lipitor) 10 mg HS PO Last administered on 10/12/16 20:51 ; Admin Dose 10 MG; Start 10/04/16 at 21:00 EZETIMIBE (Zetia) 10 mg DAILY PO Last administered on 10/13/16 08:39; Admin Dose 10 MG; Start 10/05/16 at 09:00 Ferrous Sulfate (Ferrous Sulfate (Ec)) 325 mg DAILY PO Last administered on 08:38; Admin Dose 325 MG; Start 10/05/16 at 09:00 Gabapentin (Neurontin) 300 mg BID PO Last administered on 10/13/16 08:38; Admin Dose 300 MG; Start 10/04/16 at 21:00 Linagliptin (Tradjenta) 5 mg QAM PO Last administered on 10/13/16 08:38; Admin Dose 5 MG; Start 10/05/16 at 09:00 Magnesium Hydroxide (Milk Of Mag) 30 ml DAILY PO Last administered on 08:39; Admin Dose 30 ML; Start 10/05/16 at 09:00 Heparin Sodium (Porcine) (Heparin (5000 Units/0.5 ml)) 5,000 unit Q12 SC Last administered on 10/13/16 08:46; Admin Dose 5,000 UNIT; Start 10/04/16 at 21:00 Multivitamins/ Minerals (Theragran-M) 1 tab DAILY PO Last administered on 08:38; Admin Dose 1 TAB; Start 10/05/16 at 09:00 Ondansetron HCl (Zofran Tab) 4 mg Q6H PRN PO NAUSEA AND/OR VOMITING; Start 10/04 at 16:00 Aspirin (Aspirin) 81 mg DAILY PO Last administered on 10/13/16 08:39; Admin Dose 81 MG; Start 10/05/16 at 09:00 Nitroglycerin (Nitroglycerin (Sl Tab) 0.4 Mg) 1 tab Q5M PRN SL CHEST PAIN; Start 10/04/16 at 16:00 Acetaminophen (Tylenol Tab) 650 mg Q6H PRN PO PAIN LEVEL 1-3 OR FEVER Last administered on 10/10/16 21:20; Admin Dose 650 MG; Start 10/04/16 at 16:00 Morphine Sulfate (morphine) 1 mg Q4H PRN IV PAIN LEVEL 7-10; Start 10/04/16 at 16:00 Docusate Sodium (Colace) 100 mg Q12H PRN PO CONSTIPATION Last administered on 20:50; Admin Dose 100 MG; Start 10/04/16 at 16:00 Bisacodyl (Dulcolax Supp) 10 mg DAILY PRN [place] CONSTIPATION; Start 10/04/16 at 16: 00 Pantoprazole (Protonix Tab) 40 mg DAILY@06 PO Last administered on 10/13/16 06 :07; Admin Dose 40 MG; Start 10/05/16 at 06:00 Miscellaneous Information 1 ea NOTE XX ; Start 10/04/16 at 17:00 Glucose (Glutose) 15 gm Q15M PRN PO DECREASED GLUCOSE; Start 10/04/16 at 17:00 Glucose (Glutose) 22.5 gm Q15M PRN PO DECREASED GLUCOSE; Start 10/04/16 at 17:00 Dextrose (D50w Syringe) 25 ml Q15M PRN IV DECREASED GLUCOSE; Start 10/04/16 at 17:00 Dextrose (D50w Syringe) 50 ml Q15M PRN IV DECREASED GLUCOSE; Start 10/04/16 at 17:00 Glucagon (Glucagen) 1 mg Q15M PRN IM DECREASED GLUCOSE; Start 10/04/16 at 17:00 Glucose (Glutose) 15 gm Q15M PRN BUCCAL DECREASED GLUCOSE; Start 10/04/16 at 17: 00 Carvedilol (Coreg) 6.25 mg BID PO Last administered on 10/13/16 08:43; Admin Dose 6.25 MG; Start 10/04/16 at 21:00 Diagnostic Test (Pha) (Accu-Chek) 1 ea 02 XX ; Start 10/05/16 at 02:00 Methylprednisolone Sodium Succinate (Solu-Medrol) 40 mg Q12 IV Last administered on 10/13/16 08:38; Admin Dose 40 MG; Start 10/08/16 at 21:00 Potassium Chloride 20 meq 20 meq DAILY PO Last administered on 10/13/16 08:38 ; Admin Dose 20 MEQ; Start 10/12/16 at 09:00 Levofloxacin/ Dextrose (Levaquin 250 Mg/ D5W 50 ml (Pmx)) 50 ml @ 100 mls/hr Q24H IVPB ; Start 10/13/16 at 15:30 FERMÍN PORTILLO Oct 13, 2016 14:37
[2016-10-13] MEDS: LEVOFLOXACIN 250MG/D5W (PMX) 50 ML IVPB SCH (15:43)
--- NOTE | 2016-10-13 17:02 | CONS ---
Date/Time of Note Date/Time of Note DATE: 10/13/16 TIME: 16:59 Assessment/Plan Assessment/Plan Chief Complaint/Hosp Course IMp: 1.chest pain-negative troponin x 3. No ischemia by lexiscan. NL EF by echo this admit 2.HTN-reasonable control 3.HL 4.H/O CVA with L sided hemiplegia 5.DM 6.Carotid stenosis 7.CHF-diastolic acute on chronic by echo this admit/elevated BNP 8. Renal failure-acute-? overdiuresis Recc: -tele -Continue zetia/statin -Continue asa -Continue coreg and follow BP closely -Decrease lasix to daily and follow creatnine closely with probable change to PO thereafter -Continue steroids/bronchodilators -Possible CEA by vascular surgery when stable Problems: Consultation Date/Type/Reason Admit Date/Time Oct 06, 2016 at 15:20 Initial Consult Date 10/05/2016 Type of Consultation: Cardiology Reason for Consultation chest pain Referring Provider: DANETTE JUAREZ MD Exam/Review of Systems Vital Signs Vitals Vital Signs Date Time Temp Pulse Resp B/P Pulse Ox O2 Delivery O2 Flow Rate FiO2 10/13/16 16:09 68 10/13/16 15:29 98.6 20 116/59 94 10/13/16 13:52 3.0 10/13/16 13:44 Nasal Cannula Intake and Output 10/12/16 10/12/16 10/13/16 15:00 23:00 07:00 Intake Total 970 ml 120 ml Balance 970 ml 120 ml Exam Review of Systems: CONSTITUTIONAL: No fevers, chills. PULMONARY: No sob CARDIOVASCULAR: No chest pain/palpitations GASTROINTESTINAL: No nausea/vomiting. GENITOURINARY: No hematuria/dysuria. MUSCULOSKELETAL: No myagias/arthalgias. PSYCHIATRIC: The patient denies depression. NEUROLOGIC: Generalized weakness Constitutional: alert, oriented Psych: no complaints Head: normocephalic ENMT: mucosa pink and moist Neck: jvd (9 cm water), supple Respiratory: diminished breath sounds Cardiovascular: regular rate and rhythm Gastrointestinal: non-tender, soft Musculoskeletal: muscle weakness (generalized) Extremities: edema (None) Results Result Diagram: 10/12/16 0541 10/13/16 0700 Results 24 hrs Laboratory Tests Test 10/12/16 17:06 10/12/16 20:49 10/13/16 07:00 10/13/16 08:35 Bedside Glucose 170 112 163 Sodium Level 134 L Potassium Level 4.6 Chloride Level 97 Carbon Dioxide Level 24 Anion Gap 18 H Blood Urea Nitrogen 49 #H Creatinine 1.31 H Glucose Level 175 Calcium Level 9.0 Test 10/13/16 12:35 Bedside Glucose 159 Medications Medications Current Medications Atorvastatin Calcium (Lipitor) 10 mg HS PO Last administered on 10/12/16 20:51 ; Admin Dose 10 MG; Start 10/04/16 at 21:00 EZETIMIBE (Zetia) 10 mg DAILY PO Last administered on 10/13/16 08:39; Admin Dose 10 MG; Start 10/05/16 at 09:00 Ferrous Sulfate (Ferrous Sulfate (Ec)) 325 mg DAILY PO Last administered on 08:38; Admin Dose 325 MG; Start 10/05/16 at 09:00 Gabapentin (Neurontin) 300 mg BID PO Last administered on 10/13/16 08:38; Admin Dose 300 MG; Start 10/04/16 at 21:00 Linagliptin (Tradjenta) 5 mg QAM PO Last administered on 10/13/16 08:38; Admin Dose 5 MG; Start 10/05/16 at 09:00 Magnesium Hydroxide (Milk Of Mag) 30 ml DAILY PO Last administered on 08:39; Admin Dose 30 ML; Start 10/05/16 at 09:00 Heparin Sodium (Porcine) (Heparin (5000 Units/0.5 ml)) 5,000 unit Q12 SC Last administered on 10/13/16 08:46; Admin Dose 5,000 UNIT; Start 10/04/16 at 21:00 Multivitamins/ Minerals (Theragran-M) 1 tab DAILY PO Last administered on 08:38; Admin Dose 1 TAB; Start 10/05/16 at 09:00 Ondansetron HCl (Zofran Tab) 4 mg Q6H PRN PO NAUSEA AND/OR VOMITING; Start 10/04 at 16:00 Aspirin (Aspirin) 81 mg DAILY PO Last administered on 10/13/16 08:39; Admin Dose 81 MG; Start 10/05/16 at 09:00 Nitroglycerin (Nitroglycerin (Sl Tab) 0.4 Mg) 1 tab Q5M PRN SL CHEST PAIN; Start 10/04/16 at 16:00 Acetaminophen (Tylenol Tab) 650 mg Q6H PRN PO PAIN LEVEL 1-3 OR FEVER Last administered on 10/10/16 21:20; Admin Dose 650 MG; Start 10/04/16 at 16:00 Morphine Sulfate (morphine) 1 mg Q4H PRN IV PAIN LEVEL 7-10; Start 10/04/16 at 16:00 Docusate Sodium (Colace) 100 mg Q12H PRN PO CONSTIPATION Last administered on 20:50; Admin Dose 100 MG; Start 10/04/16 at 16:00 Bisacodyl (Dulcolax Supp) 10 mg DAILY PRN [place] CONSTIPATION; Start 10/04/16 at 16: 00 Pantoprazole (Protonix Tab) 40 mg DAILY@06 PO Last administered on 10/13/16 06 :07; Admin Dose 40 MG; Start 10/05/16 at 06:00 Miscellaneous Information 1 ea NOTE XX ; Start 10/04/16 at 17:00 Glucose (Glutose) 15 gm Q15M PRN PO DECREASED GLUCOSE; Start 10/04/16 at 17:00 Glucose (Glutose) 22.5 gm Q15M PRN PO DECREASED GLUCOSE; Start 10/04/16 at 17:00 Dextrose (D50w Syringe) 25 ml Q15M PRN IV DECREASED GLUCOSE; Start 10/04/16 at 17:00 Dextrose (D50w Syringe) 50 ml Q15M PRN IV DECREASED GLUCOSE; Start 10/04/16 at 17:00 Glucagon (Glucagen) 1 mg Q15M PRN IM DECREASED GLUCOSE; Start 10/04/16 at 17:00 Glucose (Glutose) 15 gm Q15M PRN BUCCAL DECREASED GLUCOSE; Start 10/04/16 at 17: 00 Carvedilol (Coreg) 6.25 mg BID PO Last administered on 10/13/16 08:43; Admin Dose 6.25 MG; Start 10/04/16 at 21:00 Diagnostic Test (Pha) (Accu-Chek) 1 ea 02 XX ; Start 10/05/16 at 02:00 Methylprednisolone Sodium Succinate (Solu-Medrol) 40 mg Q12 IV Last administered on 10/13/16 08:38; Admin Dose 40 MG; Start 10/08/16 at 21:00 Potassium Chloride 20 meq 20 meq DAILY PO Last administered on 10/13/16 08:38 ; Admin Dose 20 MEQ; Start 10/12/16 at 09:00 Levofloxacin/ Dextrose (Levaquin 250 Mg/ D5W 50 ml (Pmx)) 50 ml @ 100 mls/hr Q24H IVPB Last administered on 10/13/16 15:43; Admin Dose 100 MLS/HR; Start at 15:30 AVERY VILLARREAL Oct 13, 2016 17:02
--- NOTE | 2016-10-13 17:47 | PN ---
Date/Time of Note Date/Time of Note DATE: 10/13/16 TIME: 17:46 Assessment/Plan VTE Prophylaxis VTE Prophylaxis Intervention: other Lines/Catheters IV Catheter Type (from [facility]): Saline Lock Urinary Cath still in place: No Assessment/Plan Assessment/Plan - Chest pain. Dr. Goldsmith is following and cardiology consultation. Cardiac enzymes are negative 3. Negative stress test. - non at present - Dyslipidemia. Continue statin. - Diabetes mellitus. Continue Tradjenta and metformin. - Hypothyroidism. Continue levothyroxine. TSH is elevated will check T4 patient with history of refusing medication, would not increase the dose of levothyroxine at this time. - History of stroke with left-sided hemiplegia. Continue aspirin. - Systemic inflammatory response syndrome with leukocytosis, follow-up on urine culture. - Hypomagnesemia, will replace magnesium. - Bilateral carotid stenosis. Dr Fernandez is asked to see pt in vascular surgery consultation. - Continue heparin for deep venous thrombosis prophylaxis. Further recommendations based on clinical course. Plan of care discussed with Dr. Stanley. Subjective 24 Hr Interval Summary Constitutional: no complaints Eyes: no complaints ENT: no complaints Respiratory: shortness of breath Cardiovascular: no complaints Gastrointestinal: no complaints Genitourinary: no complaints Musculoskeletal: no complaints Skin: no complaints Neurologic: no complaints Endocrine: no complaints Lymphatic: no complaints Exam/Review of Systems Vital Signs Vitals Vital Signs Date Time Temp Pulse Resp B/P Pulse Ox O2 Delivery O2 Flow Rate FiO2 10/13/16 16:09 68 10/13/16 15:29 98.6 20 116/59 94 10/13/16 13:52 3.0 10/13/16 13:44 Nasal Cannula Intake and Output 10/12/16 10/12/16 10/13/16 15:00 23:00 07:00 Intake Total 970 ml 120 ml Balance 970 ml 120 ml Exam Constitutional: alert, oriented Psych: nl mood/affect Head: atraumatic Eyes: EOMI ENMT: nl external ears & nose Neck: non-tender Respiratory: clear to auscultation Cardiovascular: nl pulses Gastrointestinal: non-tender, soft Musculoskeletal: nl extremities to inspection Extremities: normal pulses Neurological: nl mental status, nl speech Skin: nl turgor Lymph: nontender Results Result Diagram: 10/12/16 0541 10/13/16 0700 Results 24 hrs Laboratory Tests Test 10/12/16 20:49 10/13/16 07:00 10/13/16 08:35 10/13/16 12:35 Bedside Glucose 112 163 159 Sodium Level 134 L Potassium Level 4.6 Chloride Level 97 Carbon Dioxide Level 24 Anion Gap 18 H Blood Urea Nitrogen 49 #H Creatinine 1.31 H Glucose Level 175 Calcium Level 9.0 Test 10/13/16 17:15 Bedside Glucose 172 Medications Medications Current Medications Atorvastatin Calcium (Lipitor) 10 mg HS PO Last administered on 10/12/16 20:51 ; Admin Dose 10 MG; Start 10/04/16 at 21:00 EZETIMIBE (Zetia) 10 mg DAILY PO Last administered on 10/13/16 08:39; Admin Dose 10 MG; Start 10/05/16 at 09:00 Ferrous Sulfate (Ferrous Sulfate (Ec)) 325 mg DAILY PO Last administered on 08:38; Admin Dose 325 MG; Start 10/05/16 at 09:00 Gabapentin (Neurontin) 300 mg BID PO Last administered on 10/13/16 08:38; Admin Dose 300 MG; Start 10/04/16 at 21:00 Linagliptin (Tradjenta) 5 mg QAM PO Last administered on 10/13/16 08:38; Admin Dose 5 MG; Start 10/05/16 at 09:00 Magnesium Hydroxide (Milk Of Mag) 30 ml DAILY PO Last administered on 08:39; Admin Dose 30 ML; Start 10/05/16 at 09:00 Heparin Sodium (Porcine) (Heparin (5000 Units/0.5 ml)) 5,000 unit Q12 SC Last administered on 10/13/16 08:46; Admin Dose 5,000 UNIT; Start 10/04/16 at 21:00 Multivitamins/ Minerals (Theragran-M) 1 tab DAILY PO Last administered on 08:38; Admin Dose 1 TAB; Start 10/05/16 at 09:00 Ondansetron HCl (Zofran Tab) 4 mg Q6H PRN PO NAUSEA AND/OR VOMITING; Start 10/04 at 16:00 Aspirin (Aspirin) 81 mg DAILY PO Last administered on 10/13/16 08:39; Admin Dose 81 MG; Start 10/05/16 at 09:00 Nitroglycerin (Nitroglycerin (Sl Tab) 0.4 Mg) 1 tab Q5M PRN SL CHEST PAIN; Start 10/04/16 at 16:00 Acetaminophen (Tylenol Tab) 650 mg Q6H PRN PO PAIN LEVEL 1-3 OR FEVER Last administered on 10/10/16 21:20; Admin Dose 650 MG; Start 10/04/16 at 16:00 Morphine Sulfate (morphine) 1 mg Q4H PRN IV PAIN LEVEL 7-10; Start 10/04/16 at 16:00 Docusate Sodium (Colace) 100 mg Q12H PRN PO CONSTIPATION Last administered on 20:50; Admin Dose 100 MG; Start 10/04/16 at 16:00 Bisacodyl (Dulcolax Supp) 10 mg DAILY PRN [place] CONSTIPATION; Start 10/04/16 at 16: 00 Pantoprazole (Protonix Tab) 40 mg DAILY@06 PO Last administered on 10/13/16 06 :07; Admin Dose 40 MG; Start 10/05/16 at 06:00 Miscellaneous Information 1 ea NOTE XX ; Start 10/04/16 at 17:00 Glucose (Glutose) 15 gm Q15M PRN PO DECREASED GLUCOSE; Start 10/04/16 at 17:00 Glucose (Glutose) 22.5 gm Q15M PRN PO DECREASED GLUCOSE; Start 10/04/16 at 17:00 Dextrose (D50w Syringe) 25 ml Q15M PRN IV DECREASED GLUCOSE; Start 10/04/16 at 17:00 Dextrose (D50w Syringe) 50 ml Q15M PRN IV DECREASED GLUCOSE; Start 10/04/16 at 17:00 Glucagon (Glucagen) 1 mg Q15M PRN IM DECREASED GLUCOSE; Start 10/04/16 at 17:00 Glucose (Glutose) 15 gm Q15M PRN BUCCAL DECREASED GLUCOSE; Start 10/04/16 at 17: 00 Carvedilol (Coreg) 6.25 mg BID PO Last administered on 10/13/16 08:43; Admin Dose 6.25 MG; Start 10/04/16 at 21:00 Diagnostic Test (Pha) (Accu-Chek) 1 ea 02 XX ; Start 10/05/16 at 02:00 Methylprednisolone Sodium Succinate (Solu-Medrol) 40 mg Q12 IV Last administered on 10/13/16 08:38; Admin Dose 40 MG; Start 10/08/16 at 21:00 Potassium Chloride 20 meq 20 meq DAILY PO Last administered on 10/13/16 08:38 ; Admin Dose 20 MEQ; Start 10/12/16 at 09:00 Levofloxacin/ Dextrose (Levaquin 250 Mg/ D5W 50 ml (Pmx)) 50 ml @ 100 mls/hr Q24H IVPB Last administered on 10/13/16 15:43; Admin Dose 100 MLS/HR; Start at 15:30 Furosemide (Lasix) 40 mg DAILY IV ; Start 10/14/16 at 09:00 FERMÍN PORTILLO Oct 13, 2016 17:47
[2016-10-13 18:00] LABS: ADD SCAN DIFF NO
[2016-10-13 18:01] LABS: BASOPHILS % 0.3 % (0.0-2.0); HEMATOCRIT 39.1 % (37.0-47.0); HEMOGLOBIN 12.7 g/dl (12.0-16.0); LYMPHOCYTES # 1.6 10^3/ul (0.8-2.9); LYMPHOCYTES % 10.6 % (15.0-51.0); MEAN CORPUSCULAR HEMOGLOBIN 28.8 pg (29.0-33.0); MEAN CORPUSCULAR HGB CONC 32.5 g/dl (32.0-37.0); MEAN CORPUSCULAR VOLUME 88.7 fl (82.0-101.0); MEAN PLATELET VOLUME 8.7 fl (7.4-10.4); MONOCYTE # 0.8 10^3/ul (0.3-0.9); MONOCYTES % 5.6 % (0.0-11.0); NEUTROPHILS % 80.9 % (39.0-77.0); PLATELET COUNT 460 10^3/UL (140-415); RED BLOOD COUNT 4.41 10^6/ul (4.20-5.40); RED CELL DISTRIBUTION WIDTH 15.1 % (11.5-14.5); WHITE BLOOD COUNT 14.8 10^3/ul (4.8-10.8)
[2016-10-13 18:12] LABS: POTASSIUM 4.5 mmol/L (3.5-5.1)
[2016-10-13 18:14] LABS: CREATININE 1.36 mg/dl (0.44-1.00)
[2016-10-13 18:15] LABS: CALCIUM 9.1 mg/dl (8.4-10.2)
--- NOTE | 2016-10-13 20:28 | PN ---
Date/Time of Note Date/Time of Note DATE: 10/13/16 TIME: 20:27 Assessment/Plan Lines/Catheters IV C[facility]ter Type (from [facility]): Saline Lock Foster in Place (from Nrs): No Assessment/Plan Chief Complaint/Hosp Course IMPRESSION: 1. 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 no plan for surgery on the Right ICA will get CT angio brain : High-grade segmental narrowing with only a tiny, thin string of vascular intraluminal contrast seen in the high cervical right internal carotid artery, petrous segment, and proximal cavernous segment. There appears to be focal occlusion at the distal cavernous right ICA segment with reconstitution of contrast enhancement in the supraclinoid right ICA. will evaluate for possible Left endartrectomy when more stable This can be done as out pt Problems: Subjective 24 Hr Interval Summary Constitutional: improved Pain Control: mild Exam/Review of Systems Vital Signs Vitals Vital Signs Date Time Temp Pulse Resp B/P Pulse Ox O2 Delivery O2 Flow Rate FiO2 10/13/16 20:17 70 10/13/16 20:00 97.9 18 81/51 92 10/13/16 13:52 3.0 10/13/16 13:44 Nasal Cannula Intake and Output 10/12/16 10/12/16 10/13/16 15:00 23:00 07:00 Intake Total 970 ml 120 ml Balance 970 ml 120 ml Exam ENMT: mucosa pink and moist, nl external ears & nose, nl lips & teeth, nl nasal mucosa & septum Neck: non-tender, supple Respiratory: clear to auscultation, normal air movement Cardiovascular: nl pulses, regular rate and rhythm Gastrointestinal: nl liver, spleen, non-tender, soft Results Result Diagram: 10/13/16173910/13/161739 CHRIS DUQUE MD Oct 13, 2016 20:28
[2016-10-13] MEDS: ATORVASTATIN 10 MG TAB PO SCH (20:50)
[2016-10-14] VITALS (12 sets, daily range): BP systolic 98–140; BP diastolic 42–67; PULSE 61–70; RESP 15–20
[2016-10-14] MEDS: ALBUTEROL/IPRATROPIUM (NEB) 3 ML AMP HHN SCH ×4 (02:44→19:50)
[2016-10-14] MEDS: PANTOPRAZOLE (EC) 40 MG TAB PO SCH (05:51)
[2016-10-14] MEDS: LEVOTHYROXINE 100 MCG TAB PO SCH (05:51)
[2016-10-14 07:13] LABS: ADD SCAN DIFF NO
[2016-10-14 07:20] LABS: BASOPHILS % 0.3 % (0.0-2.0); HEMATOCRIT 38.6 % (37.0-47.0); HEMOGLOBIN 12.5 g/dl (12.0-16.0); LYMPHOCYTES # 1.7 10^3/ul (0.8-2.9); LYMPHOCYTES % 10.8 % (15.0-51.0); MEAN CORPUSCULAR HEMOGLOBIN 29.1 pg (29.0-33.0); MEAN CORPUSCULAR HGB CONC 32.4 g/dl (32.0-37.0); MEAN PLATELET VOLUME 9.1 fl (7.4-10.4); MONOCYTE # 0.9 10^3/ul (0.3-0.9); MONOCYTES % 5.8 % (0.0-11.0); NEUTROPHIL # 12.6 10^3/ul (1.6-7.5); NEUTROPHILS % 80.3 % (39.0-77.0); PLATELET COUNT 419 10^3/UL (140-415); RED BLOOD COUNT 4.29 10^6/ul (4.20-5.40); RED CELL DISTRIBUTION WIDTH 15.2 % (11.5-14.5); WHITE BLOOD COUNT 15.6 10^3/ul (4.8-10.8)
[2016-10-14 07:59] LABS: CALCIUM 8.9 mg/dl (8.4-10.2); CREATININE 1.4 mg/dl (0.44-1.00); POTASSIUM 4.9 mmol/L (3.5-5.1)
[2016-10-14] MEDS: INSULIN ASPART [NOVOLOG] 3 ML PEN SC SCH ×4 (08:41→20:38)
[2016-10-14] MEDS: ASPIRIN 81 MG TAB PO SCH (08:42)
[2016-10-14] MEDS: POTASSIUM CHLORIDE (SR) 20 MEQ TAB PO SCH (08:43)
[2016-10-14] MEDS: MULTIVITAMINS/MINERALS TAB PO SCH (08:43)
[2016-10-14] MEDS: LINAGLIPTIN 5 MG TABLET PO SCH (08:43)
[2016-10-14] MEDS: GABAPENTIN 300 MG CAP PO SCH ×2 (08:43→20:21)
[2016-10-14] MEDS: FERROUS SULFATE (EC) 325 MG TAB PO SCH (08:43)
[2016-10-14] MEDS: METHYLPREDNISOLONE 40 MG INJ IV SCH ×2 (08:46→20:21)
[2016-10-14] MEDS: HEPARIN 5,000 UNIT/0.5 ML VIAL SC SCH ×2 (08:47→20:46)
[2016-10-14] MEDS: MAGNESIUM HYDROXIDE 30ML CUP PO SCH (08:48)
[2016-10-14] MEDS: EZETIMIBE 10 MG TAB PO SCH (08:53)
[2016-10-14] MEDS ORDERED: FUROSEMIDE 40 MG INJ IV SCH (09:00)
[2016-10-14] MEDS: LEVOFLOXACIN 250MG/D5W (PMX) 50 ML IVPB SCH (16:21)
--- NOTE | 2016-10-14 16:48 | CONS ---
Date/Time of Note Date/Time of Note DATE: 10/14/16 TIME: 16:42 Assessment/Plan Assessment/Plan Chief Complaint/Hosp Course IMp: 1.chest pain-negative troponin x 3. No ischemia by lexiscan. NL EF by echo this admit 2.HTN-reasonable control 3.HL 4.H/O CVA with L sided hemiplegia 5.DM 6.Carotid stenosis 7.CHF-diastolic acute on chronic by echo this admit/elevated BNP 8. Renal failure-acute-? overdiuresis with mild worsening today Recc: -tele -Continue zetia/statin -Continue asa -Continue coreg and follow BP closely -Hold lasix x 1-2 days and then resume at 20 po daily and follow creatnine closely -Follow volume status closely -Continue steroids/bronchodilators -Possible CEA by vascular surgery when stable Problems: Consultation Date/Type/Reason Admit Date/Time Oct 06, 2016 at 15:20 Initial Consult Date 10/05/2016 Type of Consultation: Cardiology Reason for Consultation CHF Referring Provider: DANETTE JUAREZ MD Exam/Review of Systems Vital Signs Vitals Vital Signs Date Time Temp Pulse Resp B/P Pulse Ox O2 Delivery O2 Flow Rate FiO2 10/14/16 16:27 65 10/14/16 15:58 99.0 19 101/58 92 10/14/16 13:13 3.0 10/14/16 13:13 Nasal Cannula Intake and Output 10/13/16 10/13/16 10/14/16 15:00 23:00 07:00 Intake Total 1120 ml Balance 1120 ml Exam Review of Systems: CONSTITUTIONAL: No fevers, chills. PULMONARY: No sob CARDIOVASCULAR: No chest pain/palpitations GASTROINTESTINAL: No nausea/vomiting. GENITOURINARY: No hematuria/dysuria. MUSCULOSKELETAL: No myagias/arthalgias. PSYCHIATRIC: The patient denies depression. NEUROLOGIC: No weakness Constitutional: alert Psych: no complaints Head: normocephalic ENMT: mucosa pink and moist Neck: jvd (7-8 cm water), supple Respiratory: clear to auscultation Cardiovascular: regular rate and rhythm Gastrointestinal: non-tender, soft Musculoskeletal: muscle weakness (generalized) Extremities: edema (none) Neurological: lethargic Results Result Diagram: 10/14/16 0632 10/14/16 0632 Results 24 hrs Laboratory Tests Test 10/13/16 17:15 10/13/16 17:40 10/13/16 20:59 10/14/16 06:32 Bedside Glucose 172 175 White Blood Count 14.8 #H 15.6 H Red Blood Count 4.41 4.29 Hemoglobin 12.7 12.5 Hematocrit 39.1 38.6 Mean Corpuscular Volume 88.7 90.0 Mean Corpuscular Hemoglobin 28.8 L 29.1 Mean Corpuscular Hemoglobin Concent 32.5 32.4 Red Cell Distribution Width 15.1 H 15.2 H Platelet Count 460 H 419 H Mean Platelet Volume 8.7 9.1 Neutrophils % 80.9 H 80.3 H Lymphocytes % 10.6 L 10.8 L Monocytes % 5.6 5.8 Eosinophils % 0.0 0.0 Basophils % 0.3 0.3 Nucleated Red Blood Cells % 0.0 0.0 Neutrophils # 12.0 H 12.6 H Lymphocytes # 1.6 1.7 Monocytes # 0.8 0.9 Eosinophils # 0.0 0.0 Basophils # 0.0 0.0 Nucleated Red Blood Cells # 0.0 0.0 Sodium Level 136 135 Potassium Level 4.5 4.9 Chloride Level 93 L 97 Carbon Dioxide Level 25 23 Anion Gap 23 H 20 H Blood Urea Nitrogen 63 H 64 H Creatinine 1.36 H 1.40 H Glucose Level 170 172 Calcium Level 9.1 8.9 Test 10/14/16 08:18 10/14/16 12:22 Bedside Glucose 152 171 Medications Medications Current Medications Atorvastatin Calcium (Lipitor) 10 mg HS PO Last administered on 10/13/16 20:50 ; Admin Dose 10 MG; Start 10/04/16 at 21:00 EZETIMIBE (Zetia) 10 mg DAILY PO Last administered on 10/14/16 08:53; Admin Dose 10 MG; Start 10/05/16 at 09:00 Ferrous Sulfate (Ferrous Sulfate (Ec)) 325 mg DAILY PO Last administered on 08:43; Admin Dose 325 MG; Start 10/05/16 at 09:00 Gabapentin (Neurontin) 300 mg BID PO Last administered on 10/14/16 08:43; Admin Dose 300 MG; Start 10/04/16 at 21:00 Linagliptin (Tradjenta) 5 mg QAM PO Last administered on 10/14/16 08:43; Admin Dose 5 MG; Start 10/05/16 at 09:00 Magnesium Hydroxide (Milk Of Mag) 30 ml DAILY PO Last administered on 08:48; Admin Dose 30 ML; Start 10/05/16 at 09:00 Heparin Sodium (Porcine) (Heparin (5000 Units/0.5 ml)) 5,000 unit Q12 SC Last administered on 10/14/16 08:47; Admin Dose 5,000 UNIT; Start 10/04/16 at 21:00 Multivitamins/ Minerals (Theragran-M) 1 tab DAILY PO Last administered on 08:43; Admin Dose 1 TAB; Start 10/05/16 at 09:00 Ondansetron HCl (Zofran Tab) 4 mg Q6H PRN PO NAUSEA AND/OR VOMITING; Start 10/04 at 16:00 Aspirin (Aspirin) 81 mg DAILY PO Last administered on 10/14/16 08:42; Admin Dose 81 MG; Start 10/05/16 at 09:00 Nitroglycerin (Nitroglycerin (Sl Tab) 0.4 Mg) 1 tab Q5M PRN SL CHEST PAIN; Start 10/04/16 at 16:00 Acetaminophen (Tylenol Tab) 650 mg Q6H PRN PO PAIN LEVEL 1-3 OR FEVER Last administered on 10/10/16 21:20; Admin Dose 650 MG; Start 10/04/16 at 16:00 Morphine Sulfate (morphine) 1 mg Q4H PRN IV PAIN LEVEL 7-10; Start 10/04/16 at 16:00 Docusate Sodium (Colace) 100 mg Q12H PRN PO CONSTIPATION Last administered on 20:50; Admin Dose 100 MG; Start 10/04/16 at 16:00 Bisacodyl (Dulcolax Supp) 10 mg DAILY PRN [place] CONSTIPATION; Start 10/04/16 at 16: 00 Pantoprazole (Protonix Tab) 40 mg DAILY@06 PO Last administered on 10/14/16 05 :51; Admin Dose 40 MG; Start 10/05/16 at 06:00 Miscellaneous Information 1 ea NOTE XX ; Start 10/04/16 at 17:00 Glucose (Glutose) 15 gm Q15M PRN PO DECREASED GLUCOSE; Start 10/04/16 at 17:00 Glucose (Glutose) 22.5 gm Q15M PRN PO DECREASED GLUCOSE; Start 10/04/16 at 17:00 Dextrose (D50w Syringe) 25 ml Q15M PRN IV DECREASED GLUCOSE; Start 10/04/16 at 17:00 Dextrose (D50w Syringe) 50 ml Q15M PRN IV DECREASED GLUCOSE; Start 10/04/16 at 17:00 Glucagon (Glucagen) 1 mg Q15M PRN IM DECREASED GLUCOSE; Start 10/04/16 at 17:00 Glucose (Glutose) 15 gm Q15M PRN BUCCAL DECREASED GLUCOSE; Start 10/04/16 at 17: 00 Carvedilol (Coreg) 6.25 mg BID PO Last administered on 10/14/16 08:48; Admin Dose 6.25 MG; Start 10/04/16 at 21:00 Diagnostic Test (Pha) (Accu-Chek) 1 ea 02 XX ; Start 10/05/16 at 02:00 Methylprednisolone Sodium Succinate (Solu-Medrol) 40 mg Q12 IV Last administered on 10/14/16 08:46; Admin Dose 40 MG; Start 10/08/16 at 21:00 Potassium Chloride 20 meq 20 meq DAILY PO Last administered on 10/14/16 08:43 ; Admin Dose 20 MEQ; Start 10/12/16 at 09:00 Levofloxacin/ Dextrose (Levaquin 250 Mg/ D5W 50 ml (Pmx)) 50 ml @ 100 mls/hr Q24H IVPB Last administered on 10/14/16 16:21; Admin Dose 100 MLS/HR; Start at 15:30 Furosemide (Lasix) 40 mg DAILY IV Last administered on 10/14/16 08:49; Admin Dose 40 MG; Start 10/14/16 at 09:00 AVERY VILLARREAL Oct 14, 2016 16:48
[2016-10-14] MEDS: metFORMIN (XR) 500 MG TAB PO SCH (17:49)
--- NOTE | 2016-10-14 18:27 | PN ---
Date/Time of Note Date/Time of Note DATE: 10/14/16 TIME: 18:27 Assessment/Plan Lines/Catheters IV Catheter Type (from Nrs): Saline Lock Urinary Cath still in place: No Subjective 24 Hr Interval Summary Eyes: no complaints Exam/Review of Systems Vital Signs Vitals Vital Signs Date Time Temp Pulse Resp B/P Pulse Ox O2 Delivery O2 Flow Rate FiO2 10/14/16 16:27 65 10/14/16 15:58 99.0 19 101/58 92 10/14/16 13:13 3.0 10/14/16 13:13 Nasal Cannula Intake and Output 10/13/16 10/13/16 10/14/16 15:00 23:00 07:00 Intake Total 1120 ml Balance 1120 ml Results Result Diagram: 10/14/16 0632 10/14/16 0632 Results 24 hrs Laboratory Tests Test 10/13/16 20:59 10/14/16 06:32 10/14/16 08:18 10/14/16 12:22 Bedside Glucose 175 152 171 White Blood Count 15.6 H Red Blood Count 4.29 Hemoglobin 12.5 Hematocrit 38.6 Mean Corpuscular Volume 90.0 Mean Corpuscular Hemoglobin 29.1 Mean Corpuscular Hemoglobin Concent 32.4 Red Cell Distribution Width 15.2 H Platelet Count 419 H Mean Platelet Volume 9.1 Neutrophils % 80.3 H Lymphocytes % 10.8 L Monocytes % 5.8 Eosinophils % 0.0 Basophils % 0.3 Nucleated Red Blood Cells % 0.0 Neutrophils # 12.6 H Lymphocytes # 1.7 Monocytes # 0.9 Eosinophils # 0.0 Basophils # 0.0 Nucleated Red Blood Cells # 0.0 Sodium Level 135 Potassium Level 4.9 Chloride Level 97 Carbon Dioxide Level 23 Anion Gap 20 H Blood Urea Nitrogen 64 H Creatinine 1.40 H Glucose Level 172 Calcium Level 8.9 Test 10/14/16 17:06 Bedside Glucose 151 Medications Medications Current Medications Atorvastatin Calcium (Lipitor) 10 mg HS PO Last administered on 10/13/16 20:50 ; Admin Dose 10 MG; Start 10/04/16 at 21:00 EZETIMIBE (Zetia) 10 mg DAILY PO Last administered on 10/14/16 08:53; Admin Dose 10 MG; Start 10/05/16 at 09:00 Ferrous Sulfate (Ferrous Sulfate (Ec)) 325 mg DAILY PO Last administered on 08:43; Admin Dose 325 MG; Start 10/05/16 at 09:00 Gabapentin (Neurontin) 300 mg BID PO Last administered on 10/14/16 08:43; Admin Dose 300 MG; Start 10/04/16 at 21:00 Linagliptin (Tradjenta) 5 mg QAM PO Last administered on 10/14/16 08:43; Admin Dose 5 MG; Start 10/05/16 at 09:00 Magnesium Hydroxide (Milk Of Mag) 30 ml DAILY PO Last administered on 08:48; Admin Dose 30 ML; Start 10/05/16 at 09:00 Heparin Sodium (Porcine) (Heparin (5000 Units/0.5 ml)) 5,000 unit Q12 SC Last administered on 10/14/16 08:47; Admin Dose 5,000 UNIT; Start 10/04/16 at 21:00 Multivitamins/ Minerals (Theragran-M) 1 tab DAILY PO Last administered on 08:43; Admin Dose 1 TAB; Start 10/05/16 at 09:00 Ondansetron HCl (Zofran Tab) 4 mg Q6H PRN PO NAUSEA AND/OR VOMITING; Start 10/04 at 16:00 Aspirin (Aspirin) 81 mg DAILY PO Last administered on 10/14/16 08:42; Admin Dose 81 MG; Start 10/05/16 at 09:00 Nitroglycerin (Nitroglycerin (Sl Tab) 0.4 Mg) 1 tab Q5M PRN SL CHEST PAIN; Start 10/04/16 at 16:00 Acetaminophen (Tylenol Tab) 650 mg Q6H PRN PO PAIN LEVEL 1-3 OR FEVER Last administered on 10/10/16 21:20; Admin Dose 650 MG; Start 10/04/16 at 16:00 Morphine Sulfate (morphine) 1 mg Q4H PRN IV PAIN LEVEL 7-10; Start 10/04/16 at 16:00 Docusate Sodium (Colace) 100 mg Q12H PRN PO CONSTIPATION Last administered on 20:50; Admin Dose 100 MG; Start 10/04/16 at 16:00 Bisacodyl (Dulcolax Supp) 10 mg DAILY PRN [place] CONSTIPATION; Start 10/04/16 at 16: 00 Pantoprazole (Protonix Tab) 40 mg DAILY@06 PO Last administered on 10/14/16 05 :51; Admin Dose 40 MG; Start 10/05/16 at 06:00 Miscellaneous Information 1 ea NOTE XX ; Start 10/04/16 at 17:00 Glucose (Glutose) 15 gm Q15M PRN PO DECREASED GLUCOSE; Start 10/04/16 at 17:00 Glucose (Glutose) 22.5 gm Q15M PRN PO DECREASED GLUCOSE; Start 10/04/16 at 17:00 Dextrose (D50w Syringe) 25 ml Q15M PRN IV DECREASED GLUCOSE; Start 10/04/16 at 17:00 Dextrose (D50w Syringe) 50 ml Q15M PRN IV DECREASED GLUCOSE; Start 10/04/16 at 17:00 Glucagon (Glucagen) 1 mg Q15M PRN IM DECREASED GLUCOSE; Start 10/04/16 at 17:00 Glucose (Glutose) 15 gm Q15M PRN BUCCAL DECREASED GLUCOSE; Start 10/04/16 at 17: 00 Carvedilol (Coreg) 6.25 mg BID PO Last administered on 10/14/16 08:48; Admin Dose 6.25 MG; Start 10/04/16 at 21:00 Diagnostic Test (Pha) (Accu-Chek) 1 ea 02 XX ; Start 10/05/16 at 02:00 Methylprednisolone Sodium Succinate (Solu-Medrol) 40 mg Q12 IV Last administered on 10/14/16 08:46; Admin Dose 40 MG; Start 10/08/16 at 21:00 Potassium Chloride 20 meq 20 meq DAILY PO Last administered on 10/14/16 08:43 ; Admin Dose 20 MEQ; Start 10/12/16 at 09:00 Levofloxacin/ Dextrose (Levaquin 250 Mg/ D5W 50 ml (Pmx)) 50 ml @ 100 mls/hr Q24H IVPB Last administered on 10/14/16 16:21; Admin Dose 100 MLS/HR; Start at 15:30 FERMÍN PORTILLO Oct 14, 2016 18:27
[2016-10-14] MEDS: ATORVASTATIN 10 MG TAB PO SCH (20:21)
--- NOTE | 2016-10-14 20:31 | PN ---
Date/Time of Note Date/Time of Note DATE: 10/14/16 TIME: 20:30 Assessment/Plan Lines/Catheters IV Catheter Type (from Nrs): Saline Lock Foster in Place (from Nrs): No Assessment/Plan Chief Complaint/Hosp Course IMPRESSION: 1. 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 no plan for surgery on the Right ICA will get CT angio brain : High-grade segmental narrowing with only a tiny, thin string of vascular intraluminal contrast seen in the high cervical right internal carotid artery, petrous segment, and proximal cavernous segment. There appears to be focal occlusion at the distal cavernous right ICA segment with reconstitution of contrast enhancement in the supraclinoid right ICA. will evaluate for possible Left endartrectomy when more stable This can be done as out pt Problems: Subjective 24 Hr Interval Summary Constitutional: improved Pain Control: mild Exam/Review of Systems Vital Signs Vitals Vital Signs Date Time Temp Pulse Resp B/P Pulse Ox O2 Delivery O2 Flow Rate FiO2 10/14/16 20:22 68 10/14/16 20:00 98.4 15 105/51 94 10/14/16 19:52 Nasal Cannula 3.0 Intake and Output 10/13/16 10/13/16 10/14/16 15:00 23:00 07:00 Intake Total 1120 ml Balance 1120 ml Exam ENMT: mucosa pink and moist, nl external ears & nose, nl lips & teeth, nl nasal mucosa & septum Neck: non-tender, supple Respiratory: clear to auscultation, normal air movement Cardiovascular: nl pulses, regular rate and rhythm Gastrointestinal: nl liver, spleen, non-tender, soft Results Result Diagram: 10/14/16 0632 10/14/16 0632 CHRIS DUQUE MD Oct 14, 2016 20:31
[2016-10-15] VITALS (12 sets, daily range): BP systolic 97–124; BP diastolic 53–58; PULSE 55–67; RESP 15–20
[2016-10-15] MEDS: ALBUTEROL/IPRATROPIUM (NEB) 3 ML AMP HHN SCH ×4 (02:00→20:00)
[2016-10-15] MEDS: ACCU-CHEK XX SCH (02:00)
[2016-10-15] MEDS: PANTOPRAZOLE (EC) 40 MG TAB PO SCH (05:29)
[2016-10-15] MEDS: LEVOTHYROXINE 100 MCG TAB PO SCH (05:29)
[2016-10-15 07:18] LABS: ADD SCAN DIFF NO
[2016-10-15 07:33] LABS: BASOPHIL # 0.1 10^3/ul (0.0-0.1); BASOPHILS % 0.3 % (0.0-2.0); EOSINOPHILS % 0.1 % (0.0-7.0); HEMATOCRIT 40.5 % (37.0-47.0); HEMOGLOBIN 12.6 g/dl (12.0-16.0); LYMPHOCYTES # 3.2 10^3/ul (0.8-2.9); LYMPHOCYTES % 18.1 % (15.0-51.0); MEAN CORPUSCULAR HEMOGLOBIN 28.4 pg (29.0-33.0); MEAN CORPUSCULAR HGB CONC 31.1 g/dl (32.0-37.0); MEAN CORPUSCULAR VOLUME 91.4 fl (82.0-101.0); MEAN PLATELET VOLUME 9.4 fl (7.4-10.4); MONOCYTE # 1.1 10^3/ul (0.3-0.9); NEUTROPHILS % 72.6 % (39.0-77.0); PLATELET COUNT 363 10^3/UL (140-415); RED BLOOD COUNT 4.43 10^6/ul (4.20-5.40); RED CELL DISTRIBUTION WIDTH 15.5 % (11.5-14.5); WHITE BLOOD COUNT 17.9 10^3/ul (4.8-10.8)
[2016-10-15 07:51] LABS: POTASSIUM 4.2 mmol/L (3.5-5.1)
[2016-10-15 07:53] LABS: CREATININE 1.23 mg/dl (0.44-1.00)
[2016-10-15] MEDS: INSULIN ASPART [NOVOLOG] 3 ML PEN SC SCH ×4 (08:21→20:31)
[2016-10-15] MEDS: HEPARIN 5,000 UNIT/0.5 ML VIAL SC SCH ×2 (08:46→20:31)
[2016-10-15] MEDS: MULTIVITAMINS/MINERALS TAB PO SCH (08:47)
[2016-10-15] MEDS: ASPIRIN 81 MG TAB PO SCH (08:47)
[2016-10-15] MEDS: EZETIMIBE 10 MG TAB PO SCH (08:48)
[2016-10-15] MEDS: LINAGLIPTIN 5 MG TABLET PO SCH (08:48)
[2016-10-15] MEDS: FERROUS SULFATE (EC) 325 MG TAB PO SCH (08:48)
[2016-10-15] MEDS: MAGNESIUM HYDROXIDE 30ML CUP PO SCH (08:48)
[2016-10-15] MEDS: POTASSIUM CHLORIDE (SR) 20 MEQ TAB PO SCH (08:48)
[2016-10-15] MEDS: GABAPENTIN 300 MG CAP PO SCH ×2 (08:48→20:30)
--- NOTE | 2016-10-15 11:57 | PN ---
Date/Time of Note Date/Time of Note DATE: 10/15/16 TIME: 11:56 Assessment/Plan VTE Prophylaxis VTE Prophylaxis Intervention: other Lines/Catheters IV [facility]from [facility] Saline Lock Urinary Cath still in place: No Assessment/Plan Chief Complaint/Hosp Course - Chest pain. Dr. Goldsmith is following and cardiology consultation. Cardiac enzymes are negative 3. Negative stress test. - non at present - Dyslipidemia. Continue statin. - Diabetes mellitus. Continue Tradjenta and metformin. - Hypothyroidism. Continue levothyroxine. TSH is elevated will check T4 patient with history of refusing medication, would not increase the dose of levothyroxine at this time. - History of stroke with left-sided hemiplegia. Continue aspirin. - Systemic inflammatory response syndrome with leukocytosis, follow-up on urine culture. - Hypomagnesemia, will replace magnesium. - Bilateral carotid stenosis. Dr Fernandez is asked to see pt in vascular surgery consultation. - Continue heparin for deep venous thrombosis prophylaxis. Problems: Subjective 24 Hr Interval Summary Free Text/Dictation Patient is not verbally responsive, appears slightly uncomfortable Exam/Review of Systems Vital Signs Vitals Vital Signs Date Time Temp Pulse Resp B/P Pulse Ox O2 Delivery O2 Flow Rate FiO2 10/15/16 11:27 97.4 66 16 108/53 93 10/15/16 07:26 3.0 10/15/16 04:00 Room Air Intake and Output 10/14/16 10/14/16 10/15/16 15:00 23:00 07:00 Intake Total 750 ml 400 ml Balance 750 ml 400 ml Exam Constitutional: well developed Head: atraumatic, normocephalic Neck: supple Respiratory: diminished breath sounds Cardiovascular: regular rate and rhythm Gastrointestinal: non-tender, soft Extremities: normal pulses Results Result Diagram: 10/15/16 0545 10/15/16 0545 Results 24 hrs Laboratory Tests Test 10/14/16 12:22 10/14/16 17:06 10/14/16 20:34 10/15/16 05:45 Bedside Glucose 171 151 155 White Blood Count 17.9 H Red Blood Count 4.43 Hemoglobin 12.6 Hematocrit 40.5 Mean Corpuscular Volume 91.4 Mean Corpuscular Hemoglobin 28.4 L Mean Corpuscular Hemoglobin Concent 31.1 L Red Cell Distribution Width 15.5 H Platelet Count 363 Mean Platelet Volume 9.4 Neutrophils % 72.6 Lymphocytes % 18.1 Monocytes % 6.0 Eosinophils % 0.1 Basophils % 0.3 Nucleated Red Blood Cells % 0.0 Neutrophils # 13.0 H Lymphocytes # 3.2 H Monocytes # 1.1 H Eosinophils # 0.0 Basophils # 0.1 Nucleated Red Blood Cells # 0.0 Sodium Level 138 Potassium Level 4.2 Chloride Level 97 Carbon Dioxide Level 27 Anion Gap 18 H Blood Urea Nitrogen 74 H Creatinine 1.23 H Glucose Level 143 Calcium Level 9.0 Magnesium Level 2.4 Test 10/15/16 08:17 Bedside Glucose 156 Medications Medications Current Medications Atorvastatin Calcium (Lipitor) 10 mg HS PO Last administered on 10/14/16 20:21 ; Admin Dose 10 MG; Start 10/04/16 at 21:00 EZETIMIBE (Zetia) 10 mg DAILY PO Last administered on 10/15/16 08:48; Admin Dose 10 MG; Start 10/05/16 at 09:00 Ferrous Sulfate (Ferrous Sulfate (Ec)) 325 mg DAILY PO Last administered on 08:48; Admin Dose 325 MG; Start 10/05/16 at 09:00 Gabapentin (Neurontin) 300 mg BID PO Last administered on 10/15/16 08:48; Admin Dose 300 MG; Start 10/04/16 at 21:00 Linagliptin (Tradjenta) 5 mg QAM PO Last administered on 10/15/16 08:48; Admin Dose 5 MG; Start 10/05/16 at 09:00 Magnesium Hydroxide (Milk Of Mag) 30 ml DAILY PO Last administered on 08:48; Admin Dose 30 ML; Start 10/05/16 at 09:00 Heparin Sodium (Porcine) (Heparin (5000 Units/0.5 ml)) 5,000 unit Q12 SC Last administered on 10/15/16 08:46; Admin Dose 5,000 UNIT; Start 10/04/16 at 21:00 Multivitamins/ Minerals (Theragran-M) 1 tab DAILY PO Last administered on 08:47; Admin Dose 1 TAB; Start 10/05/16 at 09:00 Ondansetron HCl (Zofran Tab) 4 mg Q6H PRN PO NAUSEA AND/OR VOMITING; Start 10/04 at 16:00 Aspirin (Aspirin) 81 mg DAILY PO Last administered on 10/15/16 08:47; Admin Dose 81 MG; Start 10/05/16 at 09:00 Nitroglycerin (Nitroglycerin (Sl Tab) 0.4 Mg) 1 tab Q5M PRN SL CHEST PAIN; Start 10/04/16 at 16:00 Acetaminophen (Tylenol Tab) 650 mg Q6H PRN PO PAIN LEVEL 1-3 OR FEVER Last administered on 10/10/16 21:20; Admin Dose 650 MG; Start 10/04/16 at 16:00 Morphine Sulfate (morphine) 1 mg Q4H PRN IV PAIN LEVEL 7-10; Start 10/04/16 at 16:00 Docusate Sodium (Colace) 100 mg Q12H PRN PO CONSTIPATION Last administered on 20:50; Admin Dose 100 MG; Start 10/04/16 at 16:00 Bisacodyl (Dulcolax Supp) 10 mg DAILY PRN [place] CONSTIPATION; Start 10/04/16 at 16: 00 Pantoprazole (Protonix Tab) 40 mg DAILY@06 PO Last administered on 10/15/16 05 :29; Admin Dose 40 MG; Start 10/05/16 at 06:00 Miscellaneous Information 1 ea NOTE XX ; Start 10/04/16 at 17:00 Glucose (Glutose) 15 gm Q15M PRN PO DECREASED GLUCOSE; Start 10/04/16 at 17:00 Glucose (Glutose) 22.5 gm Q15M PRN PO DECREASED GLUCOSE; Start 10/04/16 at 17:00 Dextrose (D50w Syringe) 25 ml Q15M PRN IV DECREASED GLUCOSE; Start 10/04/16 at 17:00 Dextrose (D50w Syringe) 50 ml Q15M PRN IV DECREASED GLUCOSE; Start 10/04/16 at 17:00 Glucagon (Glucagen) 1 mg Q15M PRN IM DECREASED GLUCOSE; Start 10/04/16 at 17:00 Glucose (Glutose) 15 gm Q15M PRN BUCCAL DECREASED GLUCOSE; Start 10/04/16 at 17: 00 Carvedilol (Coreg) 6.25 mg BID PO Last administered on 10/15/16 08:55; Admin Dose 6.25 MG; Start 10/04/16 at 21:00 Diagnostic Test (Pha) (Accu-Chek) 1 ea 02 XX ; Start 10/05/16 at 02:00 Methylprednisolone Sodium Succinate (Solu-Medrol) 40 mg Q12 IV Last administered on 10/14/16 20:21; Admin Dose 40 MG; Start 10/08/16 at 21:00 Potassium Chloride 20 meq 20 meq DAILY PO Last administered on 10/15/16 08:48 ; Admin Dose 20 MEQ; Start 10/12/16 at 09:00 Levofloxacin/ Dextrose (Levaquin 250 Mg/ D5W 50 ml (Pmx)) 50 ml @ 100 mls/hr Q24H IVPB Last administered on 10/14/16 16:21; Admin Dose 100 MLS/HR; Start at 15:30 RAUL GEIGER Oct 15, 2016 11:57
[2016-10-15] MEDS: METHYLPREDNISOLONE 40 MG INJ IV SCH ×2 (12:00→20:29)
--- NOTE | 2016-10-15 12:15 | CONS ---
Date/Time of Note Date/Time of Note DATE: 10/15/16 TIME: 12:11 Assessment/Plan Assessment/Plan Additional Assessment/Plan Atypical chest pain\ CHF Hypertension Hyperlipidemia Stroke with Left Hemiplegia Diabetes heart failure compensated, ruled out for ischemia with negative stress test Continue Coreg Hold Lasix Continue Zetia Continue Insulin Started on Plavix Continue antibiotics Keep Mag > 2 and Potassium > 4 Consultation Date/Type/Reason Admit Date/Time Oct 06, 2016 at 15:20 Constitutional: no complaints Eyes: no complaints ENT: no complaints Respiratory: shortness of breath Cardiovascular: no complaints Gastrointestinal: no complaints Genitourinary: no complaints Musculoskeletal: no complaints Skin: no complaints Neurologic: no complaints Endocrine: no complaints Lymphatic: no complaints Psychological: no complaints Social History Smoking Status: Former smoker Exam/Review of Systems Vital Signs Vitals Vital Signs Date Time Temp Pulse Resp B/P Pulse Ox O2 Delivery O2 Flow Rate FiO2 10/15/16 12:00 60 10/15/16 11:27 97.4 16 108/53 93 10/15/16 07:26 3.0 10/15/16 04:00 Room Air Intake and Output 10/14/16 10/14/16 10/15/16 15:00 23:00 07:00 Intake Total 750 ml 400 ml Balance 750 ml 400 ml Exam Constitutional: alert Head: atraumatic, normocephalic Respiratory: clear to auscultation Cardiovascular: regular rate and rhythm Gastrointestinal: nl liver, spleen, non-tender, soft Extremities: normal pulses Results Result Diagram: 10/15/16 0545 10/15/16 0545 Results 24 hrs Laboratory Tests Test 10/14/16 12:22 10/14/16 17:06 10/14/16 20:34 10/15/16 05:45 Bedside Glucose 171 151 155 White Blood Count 17.9 H Red Blood Count 4.43 Hemoglobin 12.6 Hematocrit 40.5 Mean Corpuscular Volume 91.4 Mean Corpuscular Hemoglobin 28.4 L Mean Corpuscular Hemoglobin Concent 31.1 L Red Cell Distribution Width 15.5 H Platelet Count 363 Mean Platelet Volume 9.4 Neutrophils % 72.6 Lymphocytes % 18.1 Monocytes % 6.0 Eosinophils % 0.1 Basophils % 0.3 Nucleated Red Blood Cells % 0.0 Neutrophils # 13.0 H Lymphocytes # 3.2 H Monocytes # 1.1 H Eosinophils # 0.0 Basophils # 0.1 Nucleated Red Blood Cells # 0.0 Sodium Level 138 Potassium Level 4.2 Chloride Level 97 Carbon Dioxide Level 27 Anion Gap 18 H Blood Urea Nitrogen 74 H Creatinine 1.23 H Glucose Level 143 Calcium Level 9.0 Magnesium Level 2.4 Test 10/15/16 08:17 10/15/16 12:01 Bedside Glucose 156 115 Medications Medications Current Medications Atorvastatin Calcium (Lipitor) 10 mg HS PO Last administered on 10/14/16 20:21 ; Admin Dose 10 MG; Start 10/04/16 at 21:00 EZETIMIBE (Zetia) 10 mg DAILY PO Last administered on 10/15/16 08:48; Admin Dose 10 MG; Start 10/05/16 at 09:00 Ferrous Sulfate (Ferrous Sulfate (Ec)) 325 mg DAILY PO Last administered on 08:48; Admin Dose 325 MG; Start 10/05/16 at 09:00 Gabapentin (Neurontin) 300 mg BID PO Last administered on 10/15/16 08:48; Admin Dose 300 MG; Start 10/04/16 at 21:00 Linagliptin (Tradjenta) 5 mg QAM PO Last administered on 10/15/16 08:48; Admin Dose 5 MG; Start 10/05/16 at 09:00 Magnesium Hydroxide (Milk Of Mag) 30 ml DAILY PO Last administered on 08:48; Admin Dose 30 ML; Start 10/05/16 at 09:00 Heparin Sodium (Porcine) (Heparin (5000 Units/0.5 ml)) 5,000 unit Q12 SC Last administered on 10/15/16 08:46; Admin Dose 5,000 UNIT; Start 10/04/16 at 21:00 Multivitamins/ Minerals (Theragran-M) 1 tab DAILY PO Last administered on 08:47; Admin Dose 1 TAB; Start 10/05/16 at 09:00 Ondansetron HCl (Zofran Tab) 4 mg Q6H PRN PO NAUSEA AND/OR VOMITING; Start 10/04 at 16:00 Aspirin (Aspirin) 81 mg DAILY PO Last administered on 10/15/16 08:47; Admin Dose 81 MG; Start 10/05/16 at 09:00 Nitroglycerin (Nitroglycerin (Sl Tab) 0.4 Mg) 1 tab Q5M PRN SL CHEST PAIN; Start 10/04/16 at 16:00 Acetaminophen (Tylenol Tab) 650 mg Q6H PRN PO PAIN LEVEL 1-3 OR FEVER Last administered on 10/10/16 21:20; Admin Dose 650 MG; Start 10/04/16 at 16:00 Morphine Sulfate (morphine) 1 mg Q4H PRN IV PAIN LEVEL 7-10; Start 10/04/16 at 16:00 Docusate Sodium (Colace) 100 mg Q12H PRN PO CONSTIPATION Last administered on 20:50; Admin Dose 100 MG; Start 10/04/16 at 16:00 Bisacodyl (Dulcolax Supp) 10 mg DAILY PRN [place] CONSTIPATION; Start 10/04/16 at 16: 00 Pantoprazole (Protonix Tab) 40 mg DAILY@06 PO Last administered on 10/15/16 05 :29; Admin Dose 40 MG; Start 10/05/16 at 06:00 Miscellaneous Information 1 ea NOTE XX ; Start 10/04/16 at 17:00 Glucose (Glutose) 15 gm Q15M PRN PO DECREASED GLUCOSE; Start 10/04/16 at 17:00 Glucose (Glutose) 22.5 gm Q15M PRN PO DECREASED GLUCOSE; Start 10/04/16 at 17:00 Dextrose (D50w Syringe) 25 ml Q15M PRN IV DECREASED GLUCOSE; Start 10/04/16 at 17:00 Dextrose (D50w Syringe) 50 ml Q15M PRN IV DECREASED GLUCOSE; Start 10/04/16 at 17:00 Glucagon (Glucagen) 1 mg Q15M PRN IM DECREASED GLUCOSE; Start 10/04/16 at 17:00 Glucose (Glutose) 15 gm Q15M PRN BUCCAL DECREASED GLUCOSE; Start 10/04/16 at 17: 00 Carvedilol (Coreg) 6.25 mg BID PO Last administered on 10/15/16 08:55; Admin Dose 6.25 MG; Start 10/04/16 at 21:00 Diagnostic Test (Pha) (Accu-Chek) 1 ea 02 XX ; Start 10/05/16 at 02:00 Methylprednisolone Sodium Succinate (Solu-Medrol) 40 mg Q12 IV Last administered on 10/15/16 12:00; Admin Dose 40 MG; Start 10/08/16 at 21:00 Potassium Chloride 20 meq 20 meq DAILY PO Last administered on 10/15/16 08:48 ; Admin Dose 20 MEQ; Start 10/12/16 at 09:00 Levofloxacin/ Dextrose (Levaquin 250 Mg/ D5W 50 ml (Pmx)) 50 ml @ 100 mls/hr Q24H IVPB Last administered on 10/14/16 16:21; Admin Dose 100 MLS/HR; Start at 15:30 SHOSHANA PRESLEY M.D. Oct 15, 2016 12:15
--- NOTE | 2016-10-15 13:27 | PN ---
Date/Time of Note Date/Time of Note DATE: 10/15/16 TIME: 13:27 Assessment/Plan Lines/Catheters IV Catheter Type (from Nrs): Saline Lock Foster in Place (from Nrs): No Assessment/Plan Chief Complaint/Hosp Course IMPRESSION: 1. 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 no plan for surgery on the Right ICA will get CT angio brain : High-grade segmental narrowing with only a tiny, thin string of vascular intraluminal contrast seen in the high cervical right internal carotid artery, petrous segment, and proximal cavernous segment. There appears to be focal occlusion at the distal cavernous right ICA segment with reconstitution of contrast enhancement in the supraclinoid right ICA. will evaluate for possible Left endartrectomy when more stable This can be done as out pt Problems: Subjective 24 Hr Interval Summary Constitutional: improved Pain Control: mild Exam/Review of Systems Vital Signs Vitals Vital Signs Date Time Temp Pulse Resp B/P Pulse Ox O2 Delivery O2 Flow Rate FiO2 10/15/16 12:00 60 10/15/16 11:27 97.4 16 108/53 93 10/15/16 07:52 Nasal Cannula 3.0 Intake and Output 10/14/16 10/14/16 10/15/16 15:00 23:00 07:00 Intake Total 750 ml 400 ml Balance 750 ml 400 ml Exam Neck: non-tender, supple Respiratory: clear to auscultation, normal air movement Cardiovascular: nl pulses, regular rate and rhythm Gastrointestinal: nl liver, spleen, non-tender, soft Results Result Diagram: 10/15/16 0545 10/15/16 0545 CHRIS DUQUE MD Oct 15, 2016 13:27
[2016-10-15] MEDS: CLOPIDOGREL 75 MG TAB PO SCH (13:28)
[2016-10-15] MEDS: LEVOFLOXACIN 250MG/D5W (PMX) 50 ML IVPB SCH (15:03)
[2016-10-15] MEDS: ATORVASTATIN 10 MG TAB PO SCH (20:30)
[2016-10-16] VITALS (12 sets, daily range): BP systolic 103–135; BP diastolic 49–65; PULSE 63–66; RESP 16–20
[2016-10-16] MEDS: ACCU-CHEK XX SCH (02:00)
[2016-10-16] MEDS: ALBUTEROL/IPRATROPIUM (NEB) 3 ML AMP HHN SCH ×4 (02:00→19:53)
[2016-10-16] MEDS: PANTOPRAZOLE (EC) 40 MG TAB PO SCH (06:14)
[2016-10-16] MEDS: LEVOTHYROXINE 100 MCG TAB PO SCH (06:14)
[2016-10-16] MEDS: ACETAMINOPHEN 325 MG TAB PO PRN (06:22)
[2016-10-16] MEDS: INSULIN ASPART [NOVOLOG] 3 ML PEN SC SCH ×4 (08:19→21:13)
[2016-10-16] MEDS: ASPIRIN 81 MG TAB PO SCH (08:20)
[2016-10-16] MEDS: GABAPENTIN 300 MG CAP PO SCH ×2 (08:20→21:08)
[2016-10-16] MEDS: MULTIVITAMINS/MINERALS TAB PO SCH (08:20)
[2016-10-16] MEDS: FERROUS SULFATE (EC) 325 MG TAB PO SCH (08:20)
[2016-10-16] MEDS: CLOPIDOGREL 75 MG TAB PO SCH (08:20)
[2016-10-16] MEDS: POTASSIUM CHLORIDE (SR) 20 MEQ TAB PO SCH (08:20)
[2016-10-16] MEDS: METHYLPREDNISOLONE 40 MG INJ IV SCH ×2 (08:20→21:08)
[2016-10-16] MEDS: EZETIMIBE 10 MG TAB PO SCH (08:20)
[2016-10-16] MEDS: LINAGLIPTIN 5 MG TABLET PO SCH (08:21)
[2016-10-16] MEDS: MAGNESIUM HYDROXIDE 30ML CUP PO SCH (08:22)
[2016-10-16] MEDS: HEPARIN 5,000 UNIT/0.5 ML VIAL SC SCH ×2 (08:52→21:14)
--- NOTE | 2016-10-16 10:52 | PN ---
Date/Time of Note Date/Time of Note DATE: 10/16/16 TIME: 10:47 Assessment/Plan Lines/Catheters Foster in [facility] (from [facility]): No Assessment/Plan Chief Complaint/Hosp Course IMPRESSION: 1. 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 no plan for surgery on the Right ICA will get CT angio brain : High-grade segmental narrowing with only a tiny, thin string of vascular intraluminal contrast seen in the high cervical right internal carotid artery, petrous segment, and proximal cavernous segment. There appears to be focal occlusion at the distal cavernous right ICA segment with reconstitution of contrast enhancement in the supraclinoid right ICA. will evaluate for possible Left endartrectomy when more stable CTA does not show the Left ICA well, will need MRA when more stable This can be done as out pt Problems: Subjective 24 Hr Interval Summary Constitutional: improved Pain Control: mild Exam/Review of Systems Vital Signs Vitals Vital Signs Date Time Temp Pulse Resp B/P Pulse Ox O2 Delivery O2 Flow Rate FiO2 10/16/16 09:27 3.0 10/16/16 09:27 80 18 95 Nasal Cannula 10/16/16 07:22 97.7 134/59 Intake and Output 10/15/16 10/15/16 10/16/16 15:00 23:00 07:00 Intake Total 450 ml 240 ml Balance 450 ml 240 ml Exam ENMT: mucosa pink and moist, nl external ears & nose, nl lips & teeth, nl nasal mucosa & septum Neck: non-tender, supple Respiratory: clear to auscultation, normal air movement Cardiovascular: nl pulses, regular rate and rhythm Results Result Diagram: 10/15/16 0545 10/15/16 0545 CHRIS DUQUE MD Oct 16, 2016 10:52
--- NOTE | 2016-10-16 11:05 | CONS ---
Date/Time of Note Date/Time of Note DATE: 10/16/16 TIME: 11:03 Assessment/Plan Assessment/Plan Additional Assessment/Plan Atypical chest pain\ CHF Hypertension Hyperlipidemia Stroke with Left Hemiplegia Diabetes heart failure compensated, ruled out for ischemia with negative stress test Continue Coreg Hold Lasix Continue Zetia Continue Insulin Continue Plavix Continue antibiotics Keep Mag > 2 and Potassium > 4 Consultation Date/Type/Reason Admit Date/Time Oct 06, 2016 at 15:20 Initial Consult Date Type of Consultation: Cardiology Referring Provider: DANETTE JUAREZ MD Exam/Review of Systems Vital Signs Vitals Vital Signs Date Time Temp Pulse Resp B/P Pulse Ox O2 Delivery O2 Flow Rate FiO2 10/16/16 09:27 3.0 10/16/16 09:27 80 18 95 Nasal Cannula 10/16/16 07:22 97.7 134/59 Intake and Output 10/15/16 10/15/16 10/16/16 15:00 23:00 07:00 Intake Total 450 ml 240 ml Balance 450 ml 240 ml Exam Constitutional: alert Head: atraumatic, normocephalic Neck: non-tender, supple Respiratory: diminished breath sounds Cardiovascular: regular rate and rhythm Gastrointestinal: nl liver, spleen, non-tender, soft Extremities: normal pulses Results Result Diagram: 10/15/16 0545 10/15/16 0545 Results 24 hrs Laboratory Tests Test 10/15/16 12:01 10/15/16 17:44 10/15/16 20:28 10/16/16 08:17 Bedside Glucose 115 248 H 148 198 Medications Medications Current Medications Atorvastatin Calcium (Lipitor) 10 mg HS PO Last administered on 10/15/16 20:30 ; Admin Dose 10 MG; Start 10/04/16 at 21:00 EZETIMIBE (Zetia) 10 mg DAILY PO Last administered on 10/16/16 08:20; Admin Dose 10 MG; Start 10/05/16 at 09:00 Ferrous Sulfate (Ferrous Sulfate (Ec)) 325 mg DAILY PO Last administered on 08:20; Admin Dose 325 MG; Start 10/05/16 at 09:00 Gabapentin (Neurontin) 300 mg BID PO Last administered on 10/16/16 08:20; Admin Dose 300 MG; Start 10/04/16 at 21:00 Linagliptin (Tradjenta) 5 mg QAM PO Last administered on 10/16/16 08:21; Admin Dose 5 MG; Start 10/05/16 at 09:00 Magnesium Hydroxide (Milk Of Mag) 30 ml DAILY PO Last administered on 08:48; Admin Dose 30 ML; Start 10/05/16 at 09:00 Heparin Sodium (Porcine) (Heparin (5000 Units/0.5 ml)) 5,000 unit Q12 SC Last administered on 10/16/16 08:52; Admin Dose 5,000 UNIT; Start 10/04/16 at 21:00 Multivitamins/ Minerals (Theragran-M) 1 tab DAILY PO Last administered on 08:20; Admin Dose 1 TAB; Start 10/05/16 at 09:00 Ondansetron HCl (Zofran Tab) 4 mg Q6H PRN PO NAUSEA AND/OR VOMITING; Start 10/04 at 16:00 Aspirin (Aspirin) 81 mg DAILY PO Last administered on 10/16/16 08:20; Admin Dose 81 MG; Start 10/05/16 at 09:00 Nitroglycerin (Nitroglycerin (Sl Tab) 0.4 Mg) 1 tab Q5M PRN SL CHEST PAIN; Start 10/04/16 at 16:00 Acetaminophen (Tylenol Tab) 650 mg Q6H PRN PO PAIN LEVEL 1-3 OR FEVER Last administered on 10/16/16 06:22; Admin Dose 650 MG; Start 10/04/16 at 16:00 Morphine Sulfate (morphine) 1 mg Q4H PRN IV PAIN LEVEL 7-10; Start 10/04/16 at 16:00 Docusate Sodium (Colace) 100 mg Q12H PRN PO CONSTIPATION Last administered on 20:50; Admin Dose 100 MG; Start 10/04/16 at 16:00 Bisacodyl (Dulcolax Supp) 10 mg DAILY PRN [place] CONSTIPATION; Start 10/04/16 at 16: 00 Pantoprazole (Protonix Tab) 40 mg DAILY@06 PO Last administered on 10/16/16 06 :14; Admin Dose 40 MG; Start 10/05/16 at 06:00 Miscellaneous Information 1 ea NOTE XX ; Start 10/04/16 at 17:00 Glucose (Glutose) 15 gm Q15M PRN PO DECREASED GLUCOSE; Start 10/04/16 at 17:00 Glucose (Glutose) 22.5 gm Q15M PRN PO DECREASED GLUCOSE; Start 10/04/16 at 17:00 Dextrose (D50w Syringe) 25 ml Q15M PRN IV DECREASED GLUCOSE; Start 10/04/16 at 17:00 Dextrose (D50w Syringe) 50 ml Q15M PRN IV DECREASED GLUCOSE; Start 10/04/16 at 17:00 Glucagon (Glucagen) 1 mg Q15M PRN IM DECREASED GLUCOSE; Start 10/04/16 at 17:00 Glucose (Glutose) 15 gm Q15M PRN BUCCAL DECREASED GLUCOSE; Start 10/04/16 at 17: 00 Carvedilol (Coreg) 6.25 mg BID PO Last administered on 10/16/16 08:21; Admin Dose 6.25 MG; Start 10/04/16 at 21:00 Diagnostic Test (Pha) (Accu-Chek) 1 ea 02 XX ; Start 10/05/16 at 02:00 Methylprednisolone Sodium Succinate (Solu-Medrol) 40 mg Q12 IV Last administered on 10/16/16 08:20; Admin Dose 40 MG; Start 10/08/16 at 21:00 Potassium Chloride 20 meq 20 meq DAILY PO Last administered on 10/16/16 08:20 ; Admin Dose 20 MEQ; Start 10/12/16 at 09:00 Levofloxacin/ Dextrose (Levaquin 250 Mg/ D5W 50 ml (Pmx)) 50 ml @ 100 mls/hr Q24H IVPB Last administered on 10/15/16 15:03; Admin Dose 100 MLS/HR; Start at 15:30 Clopidogrel Bisulfate (plaVIX) 75 mg DAILY PO Last administered on 10/16/16 08 :20; Admin Dose 75 MG; Start 10/15/16 at 12:30 SHOSHANA PRESLEY M.D. Oct 16, 2016 11:05
--- NOTE | 2016-10-16 12:54 | PN ---
Date/Time of Note Date/Time of Note DATE: 10/16/16 TIME: 12:53 Assessment/Plan VTE Prophylaxis VTE Prophylaxis Intervention: other Lines/Catheters Urinary Cath still in place: No Assessment/Plan Chief Complaint/Hosp Course - Chest pain. Dr. Goldsmith is following and cardiology consultation. Cardiac enzymes are negative 3. Negative stress test. - non at present - Dyslipidemia. Continue statin. - Diabetes mellitus. Continue Tradjenta and metformin. - Hypothyroidism. Continue levothyroxine. TSH is elevated will check T4 patient with history of refusing medication, would not increase the dose of levothyroxine at this time. - History of stroke with left-sided hemiplegia. Continue aspirin. - Systemic inflammatory response syndrome with leukocytosis, follow-up on urine culture. - Hypomagnesemia, will replace magnesium. - Bilateral carotid stenosis. Dr Fernandez is asked to see pt in vascular surgery consultation. - Continue heparin for deep venous thrombosis prophylaxis. Problems: Subjective 24 Hr Interval Summary Free Text/Dictation Patient is not verbally responsive Exam/Review of Systems Vital Signs Vitals Vital Signs Date Time Temp Pulse Resp B/P Pulse Ox O2 Delivery O2 Flow Rate FiO2 10/16/16 12:01 63 10/16/16 11:42 97.6 16 103/49 95 10/16/16 09:27 3.0 10/16/16 09:27 Nasal Cannula Intake and Output 10/15/16 10/15/16 10/16/16 15:00 23:00 07:00 Intake Total 450 ml 240 ml Balance 450 ml 240 ml Exam Constitutional: well developed Head: atraumatic, normocephalic Neck: supple Respiratory: diminished breath sounds Cardiovascular: regular rate and rhythm Gastrointestinal: non-tender, soft Extremities: normal pulses Results Result Diagram: 10/15/16 0545 10/15/16 0545 Results 24 hrs Laboratory Tests Test 10/15/16 17:44 10/15/16 20:28 10/16/16 08:17 10/16/16 12:16 Bedside Glucose 248 H 148 198 227 H Medications Medications Current Medications Atorvastatin Calcium (Lipitor) 10 mg HS PO Last administered on 10/15/16 20:30 ; Admin Dose 10 MG; Start 10/04/16 at 21:00 EZETIMIBE (Zetia) 10 mg DAILY PO Last administered on 10/16/16 08:20; Admin Dose 10 MG; Start 10/05/16 at 09:00 Ferrous Sulfate (Ferrous Sulfate (Ec)) 325 mg DAILY PO Last administered on 08:20; Admin Dose 325 MG; Start 10/05/16 at 09:00 Gabapentin (Neurontin) 300 mg BID PO Last administered on 10/16/16 08:20; Admin Dose 300 MG; Start 10/04/16 at 21:00 Linagliptin (Tradjenta) 5 mg QAM PO Last administered on 10/16/16 08:21; Admin Dose 5 MG; Start 10/05/16 at 09:00 Magnesium Hydroxide (Milk Of Mag) 30 ml DAILY PO Last administered on 08:48; Admin Dose 30 ML; Start 10/05/16 at 09:00 Heparin Sodium (Porcine) (Heparin (5000 Units/0.5 ml)) 5,000 unit Q12 SC Last administered on 10/16/16 08:52; Admin Dose 5,000 UNIT; Start 10/04/16 at 21:00 Multivitamins/ Minerals (Theragran-M) 1 tab DAILY PO Last administered on 08:20; Admin Dose 1 TAB; Start 10/05/16 at 09:00 Ondansetron HCl (Zofran Tab) 4 mg Q6H PRN PO NAUSEA AND/OR VOMITING; Start 10/04 at 16:00 Aspirin (Aspirin) 81 mg DAILY PO Last administered on 10/16/16 08:20; Admin Dose 81 MG; Start 10/05/16 at 09:00 Nitroglycerin (Nitroglycerin (Sl Tab) 0.4 Mg) 1 tab Q5M PRN SL CHEST PAIN; Start 10/04/16 at 16:00 Acetaminophen (Tylenol Tab) 650 mg Q6H PRN PO PAIN LEVEL 1-3 OR FEVER Last administered on 10/16/16 06:22; Admin Dose 650 MG; Start 10/04/16 at 16:00 Morphine Sulfate (morphine) 1 mg Q4H PRN IV PAIN LEVEL 7-10; Start 10/04/16 at 16:00 Docusate Sodium (Colace) 100 mg Q12H PRN PO CONSTIPATION Last administered on 20:50; Admin Dose 100 MG; Start 10/04/16 at 16:00 Bisacodyl (Dulcolax Supp) 10 mg DAILY PRN [place] CONSTIPATION; Start 10/04/16 at 16: 00 Pantoprazole (Protonix Tab) 40 mg DAILY@06 PO Last administered on 10/16/16 06 :14; Admin Dose 40 MG; Start 10/05/16 at 06:00 Miscellaneous Information 1 ea NOTE XX ; Start 10/04/16 at 17:00 Glucose (Glutose) 15 gm Q15M PRN PO DECREASED GLUCOSE; Start 10/04/16 at 17:00 Glucose (Glutose) 22.5 gm Q15M PRN PO DECREASED GLUCOSE; Start 10/04/16 at 17:00 Dextrose (D50w Syringe) 25 ml Q15M PRN IV DECREASED GLUCOSE; Start 10/04/16 at 17:00 Dextrose (D50w Syringe) 50 ml Q15M PRN IV DECREASED GLUCOSE; Start 10/04/16 at 17:00 Glucagon (Glucagen) 1 mg Q15M PRN IM DECREASED GLUCOSE; Start 10/04/16 at 17:00 Glucose (Glutose) 15 gm Q15M PRN BUCCAL DECREASED GLUCOSE; Start 10/04/16 at 17: 00 Carvedilol (Coreg) 6.25 mg BID PO Last administered on 10/16/16 08:21; Admin Dose 6.25 MG; Start 10/04/16 at 21:00 Diagnostic Test (Pha) (Accu-Chek) 1 ea 02 XX ; Start 10/05/16 at 02:00 Methylprednisolone Sodium Succinate (Solu-Medrol) 40 mg Q12 IV Last administered on 10/16/16 08:20; Admin Dose 40 MG; Start 10/08/16 at 21:00 Potassium Chloride 20 meq 20 meq DAILY PO Last administered on 10/16/16 08:20 ; Admin Dose 20 MEQ; Start 10/12/16 at 09:00 Levofloxacin/ Dextrose (Levaquin 250 Mg/ D5W 50 ml (Pmx)) 50 ml @ 100 mls/hr Q24H IVPB Last administered on 10/15/16 15:03; Admin Dose 100 MLS/HR; Start at 15:30 Clopidogrel Bisulfate (plaVIX) 75 mg DAILY PO Last administered on 10/16/16 08 :20; Admin Dose 75 MG; Start 10/15/16 at 12:30 RAUL GEIGER Oct 16, 2016 12:54
[2016-10-16] MEDS: LEVOFLOXACIN 250MG/D5W (PMX) 50 ML IVPB SCH (15:35)
[2016-10-16] MEDS: ATORVASTATIN 10 MG TAB PO SCH (21:08)
[2016-10-17] VITALS (12 sets, daily range): BP systolic 117–130; BP diastolic 53–66; PULSE 60–69; RESP 16–18
[2016-10-17] MEDS: ALBUTEROL/IPRATROPIUM (NEB) 3 ML AMP HHN SCH ×4 (01:06→19:33)
[2016-10-17] MEDS: ACCU-CHEK XX SCH (02:26)
[2016-10-17] MEDS ORDERED: INSULIN ASPART [NOVOLOG] 3 ML PEN SC ONE (02:35)
[2016-10-17] MEDS: DOCUSATE SODIUM 100 MG CAP PO PRN (06:14)
[2016-10-17] MEDS: PANTOPRAZOLE (EC) 40 MG TAB PO SCH (06:14)
[2016-10-17] MEDS: LEVOTHYROXINE 100 MCG TAB PO SCH (06:15)
[2016-10-17] MEDS: INSULIN ASPART [NOVOLOG] 3 ML PEN SC SCH ×4 (08:33→20:52)
[2016-10-17] MEDS: EZETIMIBE 10 MG TAB PO SCH (08:34)
[2016-10-17] MEDS: CLOPIDOGREL 75 MG TAB PO SCH (08:34)
[2016-10-17] MEDS: FERROUS SULFATE (EC) 325 MG TAB PO SCH (08:34)
[2016-10-17] MEDS: ASPIRIN 81 MG TAB PO SCH (08:34)
[2016-10-17] MEDS: LINAGLIPTIN 5 MG TABLET PO SCH (08:34)
[2016-10-17] MEDS: MAGNESIUM HYDROXIDE 30ML CUP PO SCH (08:35)
[2016-10-17] MEDS: GABAPENTIN 300 MG CAP PO SCH ×2 (08:35→20:35)
[2016-10-17] MEDS: METHYLPREDNISOLONE 40 MG INJ IV SCH ×2 (08:35→20:36)
[2016-10-17] MEDS: POTASSIUM CHLORIDE (SR) 20 MEQ TAB PO SCH (08:35)
[2016-10-17] MEDS: MULTIVITAMINS/MINERALS TAB PO SCH (08:35)
[2016-10-17] MEDS: HEPARIN 5,000 UNIT/0.5 ML VIAL SC SCH ×2 (08:36→20:39)
[2016-10-17] MEDS: LEVOFLOXACIN 250MG/D5W (PMX) 50 ML IVPB SCH (17:14)
--- NOTE | 2016-10-17 18:49 | PN ---
Date/Time of Note Date/Time of Note DATE: 10/17/16 TIME: 18:45 Assessment/Plan VTE Prophylaxis VTE Prophylaxis Intervention: SCD's Lines/Catheters IV [facility] Urinary Cath still in place: No Assessment/Plan Chief Complaint/Hosp Course ASSESSMENT AND PLAN: - Chest pain. Dr. Goldsmith is following and cardiology consultation. Cardiac enzymes are negative 3. Negative stress test. - Dyslipidemia. Continue statin. - Diabetes mellitus. Continue Tradjenta and metformin. - Hypothyroidism. Continue levothyroxine. TSH is elevated will check T4 patient with history of refusing medication, would not increase the dose of levothyroxine at this time. - History of stroke with left-sided hemiplegia. Continue aspirin. - Systemic inflammatory response syndrome with leukocytosis, follow-up on urine culture. - Hypomagnesemia, will replace magnesium. - Bilateral carotid stenosis. Dr Fernandez is following in vascular surgery consultation. Possible left endarterectomy. Continue heparin for deep venous thrombosis prophylaxis. Further recommendations based on clinical course. Plan of care discussed with Dr. Stanley. Problems: Subjective 24 Hr Interval Summary Free Text/Dictation Patient is awake alert, sinus rhythm on telemetry, comfortable and supplemental oxygen. Exam/Review of Systems Vital Signs Vitals Vital Signs Date Time Temp Pulse Resp B/P Pulse Ox O2 Delivery O2 Flow Rate FiO2 10/17/16 16:00 66 10/17/16 15:34 98.4 16 118/55 92 10/17/16 14:20 21 10/17/16 01:14 2.0 10/16/16 09:27 Nasal Cannula Intake and Output 10/16/16 10/16/16 10/17/16 15:00 23:00 07:00 Intake Total 500 ml 500 ml Balance 500 ml 500 ml Exam Constitutional: alert, frail, obese Psych: confusion, other (Demented) Head: atraumatic, normocephalic ENMT: nl external ears & nose, nl nasal mucosa & septum Neck: supple Respiratory: clear to auscultation, wheezing Cardiovascular: nl pulses, regular rate and rhythm Gastrointestinal: non-tender, soft Genitourinary - Female: nl adnexae Musculoskeletal: nl extremities to inspection Extremities: normal pulses Neurological: confused Skin: other (Left-sided hemiplegia) Results Result Diagram: 10/15/1645 10/15/1645 Results 24 hrs Laboratory Tests Test 10/16/16 21:07 10/17/16 02:25 10/17/16 08:10 10/17/16 11:57 Bedside Glucose 197 304 H 194 235 H Test 10/17/16 17:03 Bedside Glucose 235 H Medications Medications Current Medications Atorvastatin Calcium (Lipitor) 10 mg HS PO Last administered on 10/16/16 21:08 ; Admin Dose 10 MG; Start 10/04/16 at 21:00 EZETIMIBE (Zetia) 10 mg DAILY PO Last administered on 10/17/16 08:34; Admin Dose 10 MG; Start 10/05/16 at 09:00 Ferrous Sulfate (Ferrous Sulfate (Ec)) 325 mg DAILY PO Last administered on 08:34; Admin Dose 325 MG; Start 10/05/16 at 09:00 Gabapentin (Neurontin) 300 mg BID PO Last administered on 10/17/16 08:35; Admin Dose 300 MG; Start 10/04/16 at 21:00 Linagliptin (Tradjenta) 5 mg QAM PO Last administered on 10/17/16 08:34; Admin Dose 5 MG; Start 10/05/16 at 09:00 Magnesium Hydroxide (Milk Of Mag) 30 ml DAILY PO Last administered on 08:35; Admin Dose 30 ML; Start 10/05/16 at 09:00 Heparin Sodium (Porcine) (Heparin (5000 Units/0.5 ml)) 5,000 unit Q12 SC Last administered on 10/17/16 08:36; Admin Dose 5,000 UNIT; Start 10/04/16 at 21:00 Multivitamins/ Minerals (Theragran-M) 1 tab DAILY PO Last administered on 08:35; Admin Dose 1 TAB; Start 10/05/16 at 09:00 Ondansetron HCl (Zofran Tab) 4 mg Q6H PRN PO NAUSEA AND/OR VOMITING; Start 10/04 at 16:00 Aspirin (Aspirin) 81 mg DAILY PO Last administered on 10/17/16 08:34; Admin Dose 81 MG; Start 10/05/16 at 09:00 Nitroglycerin (Nitroglycerin (Sl Tab) 0.4 Mg) 1 tab Q5M PRN SL CHEST PAIN; Start 10/04/16 at 16:00 Acetaminophen (Tylenol Tab) 650 mg Q6H PRN PO PAIN LEVEL 1-3 OR FEVER Last administered on 10/16/16 06:22; Admin Dose 650 MG; Start 10/04/16 at 16:00 Morphine Sulfate (morphine) 1 mg Q4H PRN IV PAIN LEVEL 7-10; Start 10/04/16 at 16:00 Docusate Sodium (Colace) 100 mg Q12H PRN PO CONSTIPATION Last administered on 06:14; Admin Dose 100 MG; Start 10/04/16 at 16:00 Bisacodyl (Dulcolax Supp) 10 mg DAILY PRN [place] CONSTIPATION; Start 10/04/16 at 16: 00 Pantoprazole (Protonix Tab) 40 mg DAILY@06 PO Last administered on 10/17/16 06 :14; Admin Dose 40 MG; Start 10/05/16 at 06:00 Miscellaneous Information 1 ea NOTE XX ; Start 10/04/16 at 17:00 Glucose (Glutose) 15 gm Q15M PRN PO DECREASED GLUCOSE; Start 10/04/16 at 17:00 Glucose (Glutose) 22.5 gm Q15M PRN PO DECREASED GLUCOSE; Start 10/04/16 at 17:00 Dextrose (D50w Syringe) 25 ml Q15M PRN IV DECREASED GLUCOSE; Start 10/04/16 at 17:00 Dextrose (D50w Syringe) 50 ml Q15M PRN IV DECREASED GLUCOSE; Start 10/04/16 at 17:00 Glucagon (Glucagen) 1 mg Q15M PRN IM DECREASED GLUCOSE; Start 10/04/16 at 17:00 Glucose (Glutose) 15 gm Q15M PRN BUCCAL DECREASED GLUCOSE; Start 10/04/16 at 17: 00 Carvedilol (Coreg) 6.25 mg BID PO Last administered on 10/17/16 08:35; Admin Dose 6.25 MG; Start 10/04/16 at 21:00 Diagnostic Test (Pha) (Accu-Chek) 1 ea 02 XX Last administered on 10/17/16 02: 26; Admin Dose 1 EA; Start 10/05/16 at 02:00 Methylprednisolone Sodium Succinate (Solu-Medrol) 40 mg Q12 IV Last administered on 10/17/16 08:35; Admin Dose 40 MG; Start 10/08/16 at 21:00 Potassium Chloride 20 meq 20 meq DAILY PO Last administered on 10/17/16 08:35 ; Admin Dose 20 MEQ; Start 10/12/16 at 09:00 Levofloxacin/ Dextrose (Levaquin 250 Mg/ D5W 50 ml (Pmx)) 50 ml @ 100 mls/hr Q24H IVPB Last administered on 10/17/16 17:14; Admin Dose 100 MLS/HR; Start at 15:30 Clopidogrel Bisulfate (plaVIX) 75 mg DAILY PO Last administered on 10/17/16 08 :34; Admin Dose 75 MG; Start 10/15/16 at 12:30 BECKY CARDENAS Oct 17, 2016 18:49
--- NOTE | 2016-10-17 20:02 | CONS ---
Date/Time of Note Date/Time of Note DATE: 10/17/16 TIME: 19:56 Assessment/Plan Assessment/Plan Chief Complaint/Hosp Course IMp: 1.chest pain-negative troponin x 3. No ischemia by lexiscan. NL EF by echo this admit 2.HTN-reasonable control 3.HL 4.H/O CVA with L sided hemiplegia 5.DM 6.Carotid stenosis 7.CHF-diastolic acute on chronic by echo this admit/elevated BNP 8. Renal eebohxb-dottm-mwlzie decreasing Recc: -tele -Continue zetia/statin -Continue asa -Continue coreg and follow BP closely -Check creatnine nd if decreased would resume low dose lasix 20 mg po daily -Follow volume status closely -Continue steroids/bronchodilators -Continue abx's -Possible CEA by vascular surgery when stable Problems: Consultation Date/Type/Reason Admit Date/Time Oct 06, 2016 at 15:20 Initial Consult Date 10/05/2016 Type of Consultation: Cardiology Reason for Consultation Chest pain/CHF Referring Provider: DANETTE JUAREZ MD Exam/Review of Systems Vital Signs Vitals Vital Signs Date Time Temp Pulse Resp B/P Pulse Ox O2 Delivery O2 Flow Rate FiO2 10/17/16 19:53 98.1 65 18 130/58 95 10/17/16 19:39 21 10/17/16 19:39 2.0 10/16/16 09:27 Nasal Cannula Intake and Output 10/16/16 10/16/16 10/17/16 15:00 23:00 07:00 Intake Total 500 ml 500 ml Balance 500 ml 500 ml Exam Review of Systems: CONSTITUTIONAL: No fevers, chills. PULMONARY: No sob CARDIOVASCULAR: No chest pain/palpitations GASTROINTESTINAL: No nausea/vomiting. GENITOURINARY: No hematuria/dysuria. MUSCULOSKELETAL: No myagias/arthalgias. PSYCHIATRIC: The patient denies depression. NEUROLOGIC: Generalized weakness Constitutional: alert, oriented Psych: no complaints Head: normocephalic ENMT: mucosa pink and moist Neck: jvd (8 cm water), supple Respiratory: diminished breath sounds (at bases/B) Cardiovascular: regular rate and rhythm Gastrointestinal: non-tender, soft Musculoskeletal: muscle tone (normal) Extremities: edema (none) Neurological: lethargic Results Result Diagram: 10/15/1645 10/15/1645 Results 24 hrs Laboratory Tests Test 10/16/16 21:07 10/17/16 02:25 10/17/16 08:10 10/17/16 11:57 Bedside Glucose 197 304 H 194 235 H Test 10/17/16 17:03 Bedside Glucose 235 H Medications Medications Current Medications Atorvastatin Calcium (Lipitor) 10 mg HS PO Last administered on 10/16/16 21:08 ; Admin Dose 10 MG; Start 10/04/16 at 21:00 EZETIMIBE (Zetia) 10 mg DAILY PO Last administered on 10/17/16 08:34; Admin Dose 10 MG; Start 10/05/16 at 09:00 Ferrous Sulfate (Ferrous Sulfate (Ec)) 325 mg DAILY PO Last administered on 08:34; Admin Dose 325 MG; Start 10/05/16 at 09:00 Gabapentin (Neurontin) 300 mg BID PO Last administered on 10/17/16 08:35; Admin Dose 300 MG; Start 10/04/16 at 21:00 Linagliptin (Tradjenta) 5 mg QAM PO Last administered on 10/17/16 08:34; Admin Dose 5 MG; Start 10/05/16 at 09:00 Magnesium Hydroxide (Milk Of Mag) 30 ml DAILY PO Last administered on 08:35; Admin Dose 30 ML; Start 10/05/16 at 09:00 Heparin Sodium (Porcine) (Heparin (5000 Units/0.5 ml)) 5,000 unit Q12 SC Last administered on 10/17/16 08:36; Admin Dose 5,000 UNIT; Start 10/04/16 at 21:00 Multivitamins/ Minerals (Theragran-M) 1 tab DAILY PO Last administered on 08:35; Admin Dose 1 TAB; Start 10/05/16 at 09:00 Ondansetron HCl (Zofran Tab) 4 mg Q6H PRN PO NAUSEA AND/OR VOMITING; Start 10/04 at 16:00 Aspirin (Aspirin) 81 mg DAILY PO Last administered on 10/17/16 08:34; Admin Dose 81 MG; Start 10/05/16 at 09:00 Nitroglycerin (Nitroglycerin (Sl Tab) 0.4 Mg) 1 tab Q5M PRN SL CHEST PAIN; Start 10/04/16 at 16:00 Acetaminophen (Tylenol Tab) 650 mg Q6H PRN PO PAIN LEVEL 1-3 OR FEVER Last administered on 10/16/16 06:22; Admin Dose 650 MG; Start 10/04/16 at 16:00 Morphine Sulfate (morphine) 1 mg Q4H PRN IV PAIN LEVEL 7-10; Start 10/04/16 at 16:00 Docusate Sodium (Colace) 100 mg Q12H PRN PO CONSTIPATION Last administered on 06:14; Admin Dose 100 MG; Start 10/04/16 at 16:00 Bisacodyl (Dulcolax Supp) 10 mg DAILY PRN [place] CONSTIPATION; Start 10/04/16 at 16: 00 Pantoprazole (Protonix Tab) 40 mg DAILY@06 PO Last administered on 10/17/16 06 :14; Admin Dose 40 MG; Start 10/05/16 at 06:00 Miscellaneous Information 1 ea NOTE XX ; Start 10/04/16 at 17:00 Glucose (Glutose) 15 gm Q15M PRN PO DECREASED GLUCOSE; Start 10/04/16 at 17:00 Glucose (Glutose) 22.5 gm Q15M PRN PO DECREASED GLUCOSE; Start 10/04/16 at 17:00 Dextrose (D50w Syringe) 25 ml Q15M PRN IV DECREASED GLUCOSE; Start 10/04/16 at 17:00 Dextrose (D50w Syringe) 50 ml Q15M PRN IV DECREASED GLUCOSE; Start 10/04/16 at 17:00 Glucagon (Glucagen) 1 mg Q15M PRN IM DECREASED GLUCOSE; Start 10/04/16 at 17:00 Glucose (Glutose) 15 gm Q15M PRN BUCCAL DECREASED GLUCOSE; Start 10/04/16 at 17: 00 Carvedilol (Coreg) 6.25 mg BID PO Last administered on 10/17/16 08:35; Admin Dose 6.25 MG; Start 10/04/16 at 21:00 Diagnostic Test (Pha) (Accu-Chek) 1 ea 02 XX Last administered on 10/17/16 02: 26; Admin Dose 1 EA; Start 10/05/16 at 02:00 Methylprednisolone Sodium Succinate (Solu-Medrol) 40 mg Q12 IV Last administered on 10/17/16 08:35; Admin Dose 40 MG; Start 10/08/16 at 21:00 Potassium Chloride 20 meq 20 meq DAILY PO Last administered on 10/17/16 08:35 ; Admin Dose 20 MEQ; Start 10/12/16 at 09:00 Levofloxacin/ Dextrose (Levaquin 250 Mg/ D5W 50 ml (Pmx)) 50 ml @ 100 mls/hr Q24H IVPB Last administered on 10/17/16 17:14; Admin Dose 100 MLS/HR; Start at 15:30 Clopidogrel Bisulfate (plaVIX) 75 mg DAILY PO Last administered on 10/17/16 08 :34; Admin Dose 75 MG; Start 10/15/16 at 12:30 AVERY VILLARREAL Oct 17, 2016 20:01
[2016-10-17] MEDS: ATORVASTATIN 10 MG TAB PO SCH (20:36)
[2016-10-18] VITALS (13 sets, daily range): BP systolic 109–127; BP diastolic 53–63; PULSE 58–72; RESP 16–18
[2016-10-18] MEDS: ALBUTEROL/IPRATROPIUM (NEB) 3 ML AMP HHN SCH ×4 (02:00→20:02)
[2016-10-18] MEDS: ACCU-CHEK XX SCH (02:05)
[2016-10-18] MEDS: PANTOPRAZOLE (EC) 40 MG TAB PO SCH (06:10)
[2016-10-18] MEDS: LEVOTHYROXINE 100 MCG TAB PO SCH (06:11)
[2016-10-18] MEDS: INSULIN ASPART [NOVOLOG] 3 ML PEN SC SCH ×4 (08:33→20:22)
[2016-10-18] MEDS: MULTIVITAMINS/MINERALS TAB PO SCH (09:04)
[2016-10-18] MEDS: METHYLPREDNISOLONE 40 MG INJ IV SCH ×2 (09:04→20:22)
[2016-10-18] MEDS: MAGNESIUM HYDROXIDE 30ML CUP PO SCH (09:04)
[2016-10-18] MEDS: EZETIMIBE 10 MG TAB PO SCH (09:04)
[2016-10-18] MEDS: ASPIRIN 81 MG TAB PO SCH (09:04)
[2016-10-18] MEDS: LINAGLIPTIN 5 MG TABLET PO SCH (09:05)
[2016-10-18] MEDS: GABAPENTIN 300 MG CAP PO SCH ×2 (09:05→20:22)
[2016-10-18] MEDS: FERROUS SULFATE (EC) 325 MG TAB PO SCH (09:05)
[2016-10-18] MEDS: POTASSIUM CHLORIDE (SR) 20 MEQ TAB PO SCH (09:05)
[2016-10-18] MEDS: HEPARIN 5,000 UNIT/0.5 ML VIAL SC SCH ×2 (09:06→20:24)
--- NOTE | 2016-10-18 09:26 | CONS ---
Date/Time of Note Date/Time of Note DATE: 10/18/16 TIME: 09:23 Assessment/Plan Assessment/Plan Additional Assessment/Plan 1.chest pain-negative troponin x 3. No ischemia by lexiscan. NL EF by echo this admit - NO CP now, no intervention planned 2.HTN-reasonable control- on med rx now 3.HL- stable 4.H/O CVA with L sided hemiplegia - con't supportive care 5.DM - on meds, keep euglycemic 6.Carotid stenosis - vascular team follow 7.CHF-diastolic acute on chronic by echo this admit/elevated BNP - better now 8. Renal ccyvtga-zcjda-zqctaa decreasing Consultation Date/Type/Reason Admit Date/Time Oct 06, 2016 at 15:20 Type of Consultation: Cardiology Referring Provider: DANETTE JUAREZ MD 24 HR Interval Summary Free Text/Dictation NO acute change - BP stable - con't to keep euvolemic. Medications reviewed. ROS: No fever, no chills, no nausea, no vomiting, no diarrhea/constipation No recent weight changes No chest pain, no PND, no orthopnea No dizziness, blurred vision No thirst, no heat or cold intolerance Exam/Review of Systems Vital Signs Vitals Vital Signs Date Time Temp Pulse Resp B/P Pulse Ox O2 Delivery O2 Flow Rate FiO2 10/18/16 08:03 79 16 92 Nasal Cannula 2.0 10/18/16 07:54 98.7 127/60 10/17/16 19:39 21 Intake and Output 10/17/16 10/17/16 10/18/16 15:00 23:00 07:00 Intake Total 480 ml 250 ml Balance 480 ml 250 ml Exam .General: WN/WD/NAD, AOx 2-3 HEENT: Unicetric/atraumatic/EOMI (follows commands) NECK: JVD elevated, no thyromegaly Lymph: no lymphadenopathy HEART: regular with no S3, II/ systolic murmur at apex LUNGS: Coarse sounds ABD: soft, NT, ND, +BS : Intact Neuro: non focal SKIN: chronic changes EXT: trace edema Results Result Diagram: 10/15/16 0545 10/15/16 0545 Results 24 hrs Laboratory Tests Test 10/17/16 11:57 10/17/16 17:03 10/17/16 20:32 10/18/16 02:14 Bedside Glucose 235 H 235 H 195 218 Test 10/18/16 08:16 Bedside Glucose 166 Medications Medications Current Medications Atorvastatin Calcium (Lipitor) 10 mg HS PO Last administered on 10/17/16 20:36 ; Admin Dose 10 MG; Start 10/04/16 at 21:00 EZETIMIBE (Zetia) 10 mg DAILY PO Last administered on 10/17/16 08:34; Admin Dose 10 MG; Start 10/05/16 at 09:00 Ferrous Sulfate (Ferrous Sulfate (Ec)) 325 mg DAILY PO Last administered on 08:34; Admin Dose 325 MG; Start 10/05/16 at 09:00 Gabapentin (Neurontin) 300 mg BID PO Last administered on 10/17/16 20:35; Admin Dose 300 MG; Start 10/04/16 at 21:00 Linagliptin (Tradjenta) 5 mg QAM PO Last administered on 10/17/16 08:34; Admin Dose 5 MG; Start 10/05/16 at 09:00 Magnesium Hydroxide (Milk Of Mag) 30 ml DAILY PO Last administered on 08:35; Admin Dose 30 ML; Start 10/05/16 at 09:00 Heparin Sodium (Porcine) (Heparin (5000 Units/0.5 ml)) 5,000 unit Q12 SC Last administered on 10/17/16 20:39; Admin Dose 5,000 UNIT; Start 10/04/16 at 21:00 Multivitamins/ Minerals (Theragran-M) 1 tab DAILY PO Last administered on 08:35; Admin Dose 1 TAB; Start 10/05/16 at 09:00 Ondansetron HCl (Zofran Tab) 4 mg Q6H PRN PO NAUSEA AND/OR VOMITING; Start 10/04 at 16:00 Aspirin (Aspirin) 81 mg DAILY PO Last administered on 10/17/16 08:34; Admin Dose 81 MG; Start 10/05/16 at 09:00 Nitroglycerin (Nitroglycerin (Sl Tab) 0.4 Mg) 1 tab Q5M PRN SL CHEST PAIN; Start 10/04/16 at 16:00 Acetaminophen (Tylenol Tab) 650 mg Q6H PRN PO PAIN LEVEL 1-3 OR FEVER Last administered on 10/16/16 06:22; Admin Dose 650 MG; Start 10/04/16 at 16:00 Morphine Sulfate (morphine) 1 mg Q4H PRN IV PAIN LEVEL 7-10; Start 10/04/16 at 16:00 Docusate Sodium (Colace) 100 mg Q12H PRN PO CONSTIPATION Last administered on 06:14; Admin Dose 100 MG; Start 10/04/16 at 16:00 Bisacodyl (Dulcolax Supp) 10 mg DAILY PRN [place] CONSTIPATION; Start 10/04/16 at 16: 00 Pantoprazole (Protonix Tab) 40 mg DAILY@06 PO Last administered on 10/18/16 06 :10; Admin Dose 40 MG; Start 10/05/16 at 06:00 Miscellaneous Information 1 ea NOTE XX ; Start 10/04/16 at 17:00 Glucose (Glutose) 15 gm Q15M PRN PO DECREASED GLUCOSE; Start 10/04/16 at 17:00 Glucose (Glutose) 22.5 gm Q15M PRN PO DECREASED GLUCOSE; Start 10/04/16 at 17:00 Dextrose (D50w Syringe) 25 ml Q15M PRN IV DECREASED GLUCOSE; Start 10/04/16 at 17:00 Dextrose (D50w Syringe) 50 ml Q15M PRN IV DECREASED GLUCOSE; Start 10/04/16 at 17:00 Glucagon (Glucagen) 1 mg Q15M PRN IM DECREASED GLUCOSE; Start 10/04/16 at 17:00 Glucose (Glutose) 15 gm Q15M PRN BUCCAL DECREASED GLUCOSE; Start 10/04/16 at 17: 00 Carvedilol (Coreg) 6.25 mg BID PO Last administered on 10/17/16 20:36; Admin Dose 6.25 MG; Start 10/04/16 at 21:00 Diagnostic Test (Pha) (Accu-Chek) 1 ea 02 XX Last administered on 10/18/16 02: 05; Admin Dose 1 EA; Start 10/05/16 at 02:00 Methylprednisolone Sodium Succinate (Solu-Medrol) 40 mg Q12 IV Last administered on 10/17/16 20:36; Admin Dose 40 MG; Start 10/08/16 at 21:00 Potassium Chloride 20 meq 20 meq DAILY PO Last administered on 10/17/16 08:35 ; Admin Dose 20 MEQ; Start 10/12/16 at 09:00 Levofloxacin/ Dextrose (Levaquin 250 Mg/ D5W 50 ml (Pmx)) 50 ml @ 100 mls/hr Q24H IVPB Last administered on 10/17/16t 17:14; Admin Dose 100 MLS/HR; Start at 15:30 MARIANNE CRISTOBAL MD Oct 18, 2016 09:26
[2016-10-18 10:52] LABS: ADD SCAN DIFF NO; BASOPHILS % 0.3 % (0.0-2.0); HEMATOCRIT 37.3 % (37.0-47.0); HEMOGLOBIN 11.7 g/dl (12.0-16.0); LYMPHOCYTES % 13.7 % (15.0-51.0); MEAN CORPUSCULAR HEMOGLOBIN 28.5 pg (29.0-33.0); MEAN CORPUSCULAR HGB CONC 31.4 g/dl (32.0-37.0); MEAN PLATELET VOLUME 9.6 fl (7.4-10.4); MONOCYTE # 0.9 10^3/ul (0.3-0.9); MONOCYTES % 6.5 % (0.0-11.0); NEUTROPHIL # 11.1 10^3/ul (1.6-7.5); NEUTROPHILS % 77.7 % (39.0-77.0); PLATELET COUNT 287 10^3/UL (140-415); RED CELL DISTRIBUTION WIDTH 15.5 % (11.5-14.5); WHITE BLOOD COUNT 14.2 10^3/ul (4.8-10.8)
[2016-10-18 10:57] LABS: CALCIUM 8.8 mg/dl (8.4-10.2); CREATININE 0.95 mg/dl (0.44-1.00); POTASSIUM 4.9 mmol/L (3.5-5.1)
[2016-10-18] MEDS: LEVOFLOXACIN 250MG/D5W (PMX) 50 ML IVPB SCH (15:17)
[2016-10-18] MEDS: metFORMIN (XR) 500 MG TAB PO SCH (17:15)
--- NOTE | 2016-10-18 17:30 | PN ---
Date/Time of Note Date/Time of Note DATE: 10/18/16 TIME: 17:29 Assessment/Plan VTE Prophylaxis VTE Prophylaxis Intervention: SCD's Lines/Catheters [facility] Urinary Cath still in place: No Assessment/Plan Chief Complaint/Hosp Course ASSESSMENT AND PLAN: - Chest pain. Dr. Goldsmith is following and cardiology consultation. Cardiac enzymes are negative 3. Negative stress test. - Dyslipidemia. Continue statin. - Diabetes mellitus. Continue Tradjenta and metformin. - Hypothyroidism. Continue levothyroxine. TSH is elevated will check T4 patient with history of refusing medication, would not increase the dose of levothyroxine at this time. - History of stroke with left-sided hemiplegia. Continue aspirin. - Systemic inflammatory response syndrome with leukocytosis, follow-up on urine culture. - Hypomagnesemia, will replace magnesium. - Bilateral carotid stenosis. Dr Fernandez is following in vascular surgery consultation. D/c planning, f/up with Dr Fernandez as an outpatient. Continue heparin for deep venous thrombosis prophylaxis. Further recommendations based on clinical course. Plan of care discussed with Dr. Stanley. Problems: Subjective 24 Hr Interval Summary Free Text/Dictation Patient is awake, alert, voids, tolerates diet well. Exam/Review of Systems Vital Signs Vitals Vital Signs Date Time Temp Pulse Resp B/P Pulse Ox O2 Delivery O2 Flow Rate FiO2 10/18/16 16:00 64 10/18/16 15:58 98.4 16 122/60 95 10/18/16 13:51 Nasal Cannula 2.0 10/17/16 19:39 21 Intake and Output 10/17/16 10/17/16 10/18/16 15:00 23:00 07:00 Intake Total 480 ml 250 ml Balance 480 ml 250 ml Exam Constitutional: alert, frail, obese Psych: confusion, other (Demented) Head: atraumatic, normocephalic ENMT: nl external ears & nose, nl nasal mucosa & septum Neck: supple Respiratory: clear to auscultation, wheezing Cardiovascular: nl pulses, regular rate and rhythm Gastrointestinal: non-tender, soft Genitourinary - Female: nl adnexae Musculoskeletal: nl extremities to inspection Extremities: normal pulses Neurological: confused Skin: other (Left-sided hemiplegia) Results Result Diagram: 10/18/16 0957 10/18/16 0957 Results 24 hrs Laboratory Tests Test 10/17/16 20:32 10/18/16 02:14 10/18/16 08:16 10/18/16 09:57 Bedside Glucose 195 218 166 White Blood Count 14.2 #H Red Blood Count 4.10 L Hemoglobin 11.7 L Hematocrit 37.3 Mean Corpuscular Volume 91.0 Mean Corpuscular Hemoglobin 28.5 L Mean Corpuscular Hemoglobin Concent 31.4 L Red Cell Distribution Width 15.5 H Platelet Count 287 # Mean Platelet Volume 9.6 Neutrophils % 77.7 H Lymphocytes % 13.7 L Monocytes % 6.5 Eosinophils % 0.0 Basophils % 0.3 Nucleated Red Blood Cells % 0.0 Neutrophils # 11.1 H Lymphocytes # 2.0 Monocytes # 0.9 Eosinophils # 0.0 Basophils # 0.0 Nucleated Red Blood Cells # 0.0 Sodium Level 137 Potassium Level 4.9 Chloride Level 101 Carbon Dioxide Level 27 Anion Gap 14 Blood Urea Nitrogen 64 H Creatinine 0.95 Glucose Level 228 H Calcium Level 8.8 Test 10/18/16 17:03 Bedside Glucose 225 H Medications Medications Current Medications Atorvastatin Calcium (Lipitor) 10 mg HS PO Last administered on 10/17/16 20:36 ; Admin Dose 10 MG; Start 10/04/16 at 21:00 EZETIMIBE (Zetia) 10 mg DAILY PO Last administered on 10/18/16 09:04; Admin Dose 10 MG; Start 10/05/16 at 09:00 Ferrous Sulfate (Ferrous Sulfate (Ec)) 325 mg DAILY PO Last administered on 09:05; Admin Dose 325 MG; Start 10/05/16 at 09:00 Gabapentin (Neurontin) 300 mg BID PO Last administered on 10/18/16 09:05; Admin Dose 300 MG; Start 10/04/16 at 21:00 Linagliptin (Tradjenta) 5 mg QAM PO Last administered on 10/18/16 09:05; Admin Dose 5 MG; Start 10/05/16 at 09:00 Magnesium Hydroxide (Milk Of Mag) 30 ml DAILY PO Last administered on 09:04; Admin Dose 30 ML; Start 10/05/16 at 09:00 Heparin Sodium (Porcine) (Heparin (5000 Units/0.5 ml)) 5,000 unit Q12 SC Last administered on 10/18/16 09:06; Admin Dose 5,000 UNIT; Start 10/04/16 at 21:00 Multivitamins/ Minerals (Theragran-M) 1 tab DAILY PO Last administered on 09:04; Admin Dose 1 TAB; Start 10/05/16 at 09:00 Ondansetron HCl (Zofran Tab) 4 mg Q6H PRN PO NAUSEA AND/OR VOMITING; Start 10/04 at 16:00 Aspirin (Aspirin) 81 mg DAILY PO Last administered on 10/18/16 09:04; Admin Dose 81 MG; Start 10/05/16 at 09:00 Nitroglycerin (Nitroglycerin (Sl Tab) 0.4 Mg) 1 tab Q5M PRN SL CHEST PAIN; Start 10/04/16 at 16:00 Acetaminophen (Tylenol Tab) 650 mg Q6H PRN PO PAIN LEVEL 1-3 OR FEVER Last administered on 10/16/16 06:22; Admin Dose 650 MG; Start 10/04/16 at 16:00 Morphine Sulfate (morphine) 1 mg Q4H PRN IV PAIN LEVEL 7-10; Start 10/04/16 at 16:00 Docusate Sodium (Colace) 100 mg Q12H PRN PO CONSTIPATION Last administered on 06:14; Admin Dose 100 MG; Start 10/04/16 at 16:00 Bisacodyl (Dulcolax Supp) 10 mg DAILY PRN [place] CONSTIPATION; Start 10/04/16 at 16: 00 Pantoprazole (Protonix Tab) 40 mg DAILY@06 PO Last administered on 10/18/16 06 :10; Admin Dose 40 MG; Start 10/05/16 at 06:00 Miscellaneous Information 1 ea NOTE XX ; Start 10/04/16 at 17:00 Glucose (Glutose) 15 gm Q15M PRN PO DECREASED GLUCOSE; Start 10/04/16 at 17:00 Glucose (Glutose) 22.5 gm Q15M PRN PO DECREASED GLUCOSE; Start 10/04/16 at 17:00 Dextrose (D50w Syringe) 25 ml Q15M PRN IV DECREASED GLUCOSE; Start 10/04/16 at 17:00 Dextrose (D50w Syringe) 50 ml Q15M PRN IV DECREASED GLUCOSE; Start 10/04/16 at 17:00 Glucagon (Glucagen) 1 mg Q15M PRN IM DECREASED GLUCOSE; Start 10/04/16 at 17:00 Glucose (Glutose) 15 gm Q15M PRN BUCCAL DECREASED GLUCOSE; Start 10/04/16 at 17: 00 Carvedilol (Coreg) 6.25 mg BID PO Last administered on 10/18/16 09:05; Admin Dose 6.25 MG; Start 10/04/16 at 21:00 Diagnostic Test (Pha) (Accu-Chek) 1 ea 02 XX Last administered on 10/18/16 02: 05; Admin Dose 1 EA; Start 10/05/16 at 02:00 Methylprednisolone Sodium Succinate (Solu-Medrol) 40 mg Q12 IV Last administered on 10/18/16 09:04; Admin Dose 40 MG; Start 10/08/16 at 21:00 Potassium Chloride 20 meq 20 meq DAILY PO Last administered on 10/18/16 09:05 ; Admin Dose 20 MEQ; Start 10/12/16 at 09:00 Levofloxacin/ Dextrose (Levaquin 250 Mg/ D5W 50 ml (Pmx)) 50 ml @ 100 mls/hr Q24H IVPB Last administered on 10/18/16 15:17; Admin Dose 100 MLS/HR; Start at 15:30 BECKY CARDENAS Oct 18, 2016 17:30
[2016-10-18] MEDS: ATORVASTATIN 10 MG TAB PO SCH (20:22)
[2016-10-19] VITALS (7 sets, daily range): BP systolic 105–117; BP diastolic 54–74; PULSE 59–70; RESP 16–18
[2016-10-19] MEDS: ALBUTEROL/IPRATROPIUM (NEB) 3 ML AMP HHN SCH ×2 (01:27→08:12)
[2016-10-19] MEDS: ACCU-CHEK XX SCH (02:00)
[2016-10-19] MEDS: PANTOPRAZOLE (EC) 40 MG TAB PO SCH (06:14)
[2016-10-19] MEDS: LEVOTHYROXINE 100 MCG TAB PO SCH (06:14)
[2016-10-19] MEDS: ASPIRIN 81 MG TAB PO SCH (08:42)
[2016-10-19] MEDS: METHYLPREDNISOLONE 40 MG INJ IV SCH (08:42)
[2016-10-19] MEDS: FERROUS SULFATE (EC) 325 MG TAB PO SCH (08:44)
[2016-10-19] MEDS: MAGNESIUM HYDROXIDE 30ML CUP PO SCH (08:45)
[2016-10-19] MEDS: POTASSIUM CHLORIDE (SR) 20 MEQ TAB PO SCH (08:45)
[2016-10-19] MEDS: GABAPENTIN 300 MG CAP PO SCH (08:46)
[2016-10-19] MEDS: MULTIVITAMINS/MINERALS TAB PO SCH (08:46)
[2016-10-19] MEDS: LINAGLIPTIN 5 MG TABLET PO SCH (08:46)
[2016-10-19] MEDS: EZETIMIBE 10 MG TAB PO SCH (08:46)
[2016-10-19] MEDS: INSULIN ASPART [NOVOLOG] 3 ML PEN SC SCH ×2 (08:53→11:56)
[2016-10-19] MEDS: HEPARIN 5,000 UNIT/0.5 ML VIAL SC SCH (08:56)
[2016-10-19] MEDS: metFORMIN (XR) 500 MG TAB PO SCH (09:53)
--- NOTE | 2016-10-19 10:33 | CONS ---
Date/Time of Note Date/Time of Note DATE: 10/19/16 TIME: 10:31 Assessment/Plan Assessment/Plan Chief Complaint/Hosp Course IMp: 1.chest pain-negative troponin x 3. No ischemia by lexiscan. NL EF by echo this admit 2.HTN-reasonable control 3.HL 4.H/O CVA with L sided hemiplegia 5.DM 6.Carotid stenosis 7.CHF-diastolic acute on chronic by echo this admit/elevated BNP 8. Renal [id number]-rxpven decreasing Recc: -tele -Continue zetia/statin -Continue asa -Continue coreg and follow BP closely -Follow volume status closely currently off of lasix due to elevated BUN -Continue steroids/bronchodilators -Continue abx's -Probable outpatient eval for CEA Problems: Consultation Date/Type/Reason Admit Date/Time Oct 06, 2016 at 15:20 Initial Consult Date 10/05/2016 Type of Consultation: Cardiology Reason for Consultation chest pain/CHF Referring Provider: DANETTE JUAREZ MD Exam/Review of Systems Vital Signs Vitals Vital Signs Date Time Temp Pulse Resp B/P Pulse Ox O2 Delivery O2 Flow Rate FiO2 10/19/16 08:22 2.0 10/19/16 08:12 62 20 90 21 10/19/16 07:35 97.9 114/54 10/18/16 20:20 Nasal Cannula Intake and Output 10/18/16 10/18/16 10/19/16 15:00 23:00 07:00 Intake Total 600 ml 250 ml Balance 600 ml 250 ml Exam Review of Systems: CONSTITUTIONAL: No fevers, chills. PULMONARY: No sob CARDIOVASCULAR: No chest pain/palpitations GASTROINTESTINAL: No nausea/vomiting. GENITOURINARY: No hematuria/dysuria. MUSCULOSKELETAL: No myagias/arthalgias. PSYCHIATRIC: The patient denies depression. NEUROLOGIC: lethargic Constitutional: alert, oriented Psych: no complaints Head: normocephalic ENMT: mucosa pink and moist Neck: jvd (9 cm water), supple Respiratory: diminished breath sounds (at bases/B) Cardiovascular: regular rate and rhythm Gastrointestinal: non-tender, soft Musculoskeletal: muscle tone (normal) Extremities: edema (none) Results Result Diagram: 10/18/16 0957 10/18/16 0957 Results 24 hrs Laboratory Tests Test 10/18/16 17:03 10/18/16 20:20 10/19/16 08:10 Bedside Glucose 225 H 174 169 Medications Medications Current Medications Atorvastatin Calcium (Lipitor) 10 mg HS PO Last administered on 10/18/16 20:22 ; Admin Dose 10 MG; Start 10/04/16 at 21:00 EZETIMIBE (Zetia) 10 mg DAILY PO Last administered on 10/19/16 08:46; Admin Dose 10 MG; Start 10/05/16 at 09:00 Ferrous Sulfate (Ferrous Sulfate (Ec)) 325 mg DAILY PO Last administered on 08:44; Admin Dose 325 MG; Start 10/05/16 at 09:00 Gabapentin (Neurontin) 300 mg BID PO Last administered on 10/19/16 08:46; Admin Dose 300 MG; Start 10/04/16 at 21:00 Linagliptin (Tradjenta) 5 mg QAM PO Last administered on 10/19/16 08:46; Admin Dose 5 MG; Start 10/05/16 at 09:00 Magnesium Hydroxide (Milk Of Mag) 30 ml DAILY PO Last administered on 08:45; Admin Dose 30 ML; Start 10/05/16 at 09:00 Heparin Sodium (Porcine) (Heparin (5000 Units/0.5 ml)) 5,000 unit Q12 SC Last administered on 10/19/16 08:56; Admin Dose 5,000 UNIT; Start 10/04/16 at 21:00 Multivitamins/ Minerals (Theragran-M) 1 tab DAILY PO Last administered on 08:46; Admin Dose 1 TAB; Start 10/05/16 at 09:00 Ondansetron HCl (Zofran Tab) 4 mg Q6H PRN PO NAUSEA AND/OR VOMITING; Start 10/04 at 16:00 Aspirin (Aspirin) 81 mg DAILY PO Last administered on 10/19/16 08:42; Admin Dose 81 MG; Start 10/05/16 at 09:00 Nitroglycerin (Nitroglycerin (Sl Tab) 0.4 Mg) 1 tab Q5M PRN SL CHEST PAIN; Start 10/04/16 at 16:00 Acetaminophen (Tylenol Tab) 650 mg Q6H PRN PO PAIN LEVEL 1-3 OR FEVER Last administered on 10/16/16 06:22; Admin Dose 650 MG; Start 10/04/16 at 16:00 Morphine Sulfate (morphine) 1 mg Q4H PRN IV PAIN LEVEL 7-10; Start 10/04/16 at 16:00 Docusate Sodium (Colace) 100 mg Q12H PRN PO CONSTIPATION Last administered on 06:14; Admin Dose 100 MG; Start 10/04/16 at 16:00 Bisacodyl (Dulcolax Supp) 10 mg DAILY PRN [place] CONSTIPATION; Start 10/04/16 at 16: 00 Pantoprazole (Protonix Tab) 40 mg DAILY@06 PO Last administered on 10/19/16 06 :14; Admin Dose 40 MG; Start 10/05/16 at 06:00 Miscellaneous Information 1 ea NOTE XX ; Start 10/04/16 at 17:00 Glucose (Glutose) 15 gm Q15M PRN PO DECREASED GLUCOSE; Start 10/04/16 at 17:00 Glucose (Glutose) 22.5 gm Q15M PRN PO DECREASED GLUCOSE; Start 10/04/16 at 17:00 Dextrose (D50w Syringe) 25 ml Q15M PRN IV DECREASED GLUCOSE; Start 10/04/16 at 17:00 Dextrose (D50w Syringe) 50 ml Q15M PRN IV DECREASED GLUCOSE; Start 10/04/16 at 17:00 Glucagon (Glucagen) 1 mg Q15M PRN IM DECREASED GLUCOSE; Start 10/04/16 at 17:00 Glucose (Glutose) 15 gm Q15M PRN BUCCAL DECREASED GLUCOSE; Start 10/04/16 at 17: 00 Carvedilol (Coreg) 6.25 mg BID PO Last administered on 10/19/16 08:44; Admin Dose 6.25 MG; Start 10/04/16 at 21:00 Diagnostic Test (Pha) (Accu-Chek) 1 ea 02 XX Last administered on 10/18/16 02: 05; Admin Dose 1 EA; Start 10/05/16 at 02:00 Methylprednisolone Sodium Succinate (Solu-Medrol) 40 mg Q12 IV Last administered on 10/19/16 08:42; Admin Dose 40 MG; Start 10/08/16 at 21:00 Potassium Chloride 20 meq 20 meq DAILY PO Last administered on 10/19/16 08:45 ; Admin Dose 20 MEQ; Start 10/12/16 at 09:00 Levofloxacin/ Dextrose (Levaquin 250 Mg/ D5W 50 ml (Pmx)) 50 ml @ 100 mls/hr Q24H IVPB Last administered on 10/18/16t 15:17; Admin Dose 100 MLS/HR; Start at 15:30 AVERY VILLARREAL Oct 19, 2016 10:33
--- NOTE | 2016-10-19 11:25 | PN ---
Date/Time of Note Date/Time of Note DATE: 10/19/16 TIME: 11:24 Assessment/Plan VTE Prophylaxis VTE Prophylaxis Intervention: SCD's Lines/Catheters [facility] Sal[facility] Urinary Cath still in place: No Assessment/Plan Chief Complaint/Hosp Course ASSESSMENT AND PLAN: - Chest pain. Dr. Goldsmith is following and cardiology consultation. Cardiac enzymes are negative 3. Negative stress test. - Dyslipidemia. Continue statin. - Diabetes mellitus. Continue Tradjenta and metformin. - Hypothyroidism. Continue levothyroxine. TSH is elevated will check T4 patient with history of refusing medication, would not increase the dose of levothyroxine at this time. - History of stroke with left-sided hemiplegia. Continue aspirin. - Systemic inflammatory response syndrome with leukocytosis, follow-up on urine culture. - Hypomagnesemia, will replace magnesium. - Bilateral carotid stenosis. Dr Fernandez is following in vascular surgery consultation. D/c planning, f/up with Dr Fernandez as an outpatient. Continue heparin for deep venous thrombosis prophylaxis. Further recommendations based on clinical course. Plan of care discussed with Dr. Stanley. Problems: Exam/Review of Systems Vital Signs Vitals Vital Signs Date Time Temp Pulse Resp B/P Pulse Ox O2 Delivery O2 Flow Rate FiO2 10/19/16 08:22 2.0 10/19/16 08:12 62 20 90 21 10/19/16 07:45 Nasal Cannula 10/19/16 07:35 97.9 114/54 Intake and Output 10/18/16 10/18/16 10/19/16 15:00 23:00 07:00 Intake Total 600 ml 250 ml Balance 600 ml 250 ml Exam Constitutional: alert, frail, obese Psych: confusion, other (Demented) Head: atraumatic, normocephalic ENMT: nl external ears & nose, nl nasal mucosa & septum Neck: supple Respiratory: clear to auscultation, wheezing Cardiovascular: nl pulses, regular rate and rhythm Gastrointestinal: non-tender, soft Genitourinary - Female: nl adnexae Musculoskeletal: nl extremities to inspection Extremities: normal pulses Neurological: confused Skin: other (Left-sided hemiplegia) Results Result Diagram: 10/18/16 0957 10/18/16 0957 Results 24 hrs Laboratory Tests Test 10/18/16 17:03 10/18/16 20:20 10/19/16 08:10 Bedside Glucose 225 H 174 169 Medications Medications Current Medications Atorvastatin Calcium (Lipitor) 10 mg HS PO Last administered on 10/18/16 20:22 ; Admin Dose 10 MG; Start 10/04/16 at 21:00 EZETIMIBE (Zetia) 10 mg DAILY PO Last administered on 10/19/16 08:46; Admin Dose 10 MG; Start 10/05/16 at 09:00 Ferrous Sulfate (Ferrous Sulfate (Ec)) 325 mg DAILY PO Last administered on 08:44; Admin Dose 325 MG; Start 10/05/16 at 09:00 Gabapentin (Neurontin) 300 mg BID PO Last administered on 10/19/16 08:46; Admin Dose 300 MG; Start 10/04/16 at 21:00 Linagliptin (Tradjenta) 5 mg QAM PO Last administered on 10/19/16 08:46; Admin Dose 5 MG; Start 10/05/16 at 09:00 Magnesium Hydroxide (Milk Of Mag) 30 ml DAILY PO Last administered on 08:45; Admin Dose 30 ML; Start 10/05/16 at 09:00 Heparin Sodium (Porcine) (Heparin (5000 Units/0.5 ml)) 5,000 unit Q12 SC Last administered on 10/19/16 08:56; Admin Dose 5,000 UNIT; Start 10/04/16 at 21:00 Multivitamins/ Minerals (Theragran-M) 1 tab DAILY PO Last administered on 08:46; Admin Dose 1 TAB; Start 10/05/16 at 09:00 Ondansetron HCl (Zofran Tab) 4 mg Q6H PRN PO NAUSEA AND/OR VOMITING; Start 10/04 at 16:00 Aspirin (Aspirin) 81 mg DAILY PO Last administered on 10/19/16 08:42; Admin Dose 81 MG; Start 10/05/16 at 09:00 Nitroglycerin (Nitroglycerin (Sl Tab) 0.4 Mg) 1 tab Q5M PRN SL CHEST PAIN; Start 10/04/16 at 16:00 Acetaminophen (Tylenol Tab) 650 mg Q6H PRN PO PAIN LEVEL 1-3 OR FEVER Last administered on 10/16/16 06:22; Admin Dose 650 MG; Start 10/04/16 at 16:00 Morphine Sulfate (morphine) 1 mg Q4H PRN IV PAIN LEVEL 7-10; Start 10/04/16 at 16:00 Docusate Sodium (Colace) 100 mg Q12H PRN PO CONSTIPATION Last administered on 06:14; Admin Dose 100 MG; Start 10/04/16 at 16:00 Bisacodyl (Dulcolax Supp) 10 mg DAILY PRN [place] CONSTIPATION; Start 10/04/16 at 16: 00 Pantoprazole (Protonix Tab) 40 mg DAILY@06 PO Last administered on 10/19/16 06 :14; Admin Dose 40 MG; Start 10/05/16 at 06:00 Miscellaneous Information 1 ea NOTE XX ; Start 10/04/16 at 17:00 Glucose (Glutose) 15 gm Q15M PRN PO DECREASED GLUCOSE; Start 10/04/16 at 17:00 Glucose (Glutose) 22.5 gm Q15M PRN PO DECREASED GLUCOSE; Start 10/04/16 at 17:00 Dextrose (D50w Syringe) 25 ml Q15M PRN IV DECREASED GLUCOSE; Start 10/04/16 at 17:00 Dextrose (D50w Syringe) 50 ml Q15M PRN IV DECREASED GLUCOSE; Start 10/04/16 at 17:00 Glucagon (Glucagen) 1 mg Q15M PRN IM DECREASED GLUCOSE; Start 10/04/16 at 17:00 Glucose (Glutose) 15 gm Q15M PRN BUCCAL DECREASED GLUCOSE; Start 10/04/16 at 17: 00 Carvedilol (Coreg) 6.25 mg BID PO Last administered on 10/19/16 08:44; Admin Dose 6.25 MG; Start 10/04/16 at 21:00 Diagnostic Test (Pha) (Accu-Chek) 1 ea 02 XX Last administered on 10/18/16 02: 05; Admin Dose 1 EA; Start 10/05/16 at 02:00 Methylprednisolone Sodium Succinate (Solu-Medrol) 40 mg Q12 IV Last administered on 10/19/16 08:42; Admin Dose 40 MG; Start 10/08/16 at 21:00 Potassium Chloride 20 meq 20 meq DAILY PO Last administered on 10/19/16 08:45 ; Admin Dose 20 MEQ; Start 10/12/16 at 09:00 Levofloxacin/ Dextrose (Levaquin 250 Mg/ D5W 50 ml (Pmx)) 50 ml @ 100 mls/hr Q24H IVPB Last administered on 10/18/16t 15:17; Admin Dose 100 MLS/HR; Start at 15:30 BECKY CARDENAS Oct 19, 2016 11:25
== END 2016-10-19 14:53 | DRG 67 ==
LOC: E/R 10:53 → MS4 13:24 → OBSVTOIN 10-06 15:20
PROVIDERS: ADMIT Family Medicine; ATTEND Internal Medicine
PROC: 4A033R1 Measurement of Arterial Saturation, Peripheral, Percutaneous Approach (ICD-10-PCS; principal; 2016-10-04)
DX: I65.23 Occlusion and stenosis of bilateral carotid arteries (principal); I50.33 Acute on chronic diastolic (congestive) heart failure; E11.40 Type 2 diabetes mellitus with diabetic neuropathy, unspecified; R65.10 Systemic inflammatory response syndrome (SIRS) of non-infectious origin without acute organ dysfunction; I11.0 Hypertensive heart disease with heart failure; I69.954 Hemiplegia and hemiparesis following unspecified cerebrovascular disease affecting left non-dominant side; F03.90 Unspecified dementia, unspecified severity, without behavioral disturbance, psychotic disturbance, mood disturbance, and anxiety; E83.42 Hypomagnesemia; R07.9 Chest pain, unspecified; E78.5 Hyperlipidemia, unspecified; E03.9 Hypothyroidism, unspecified; Z74.01 Bed confinement status; D50.9 Iron deficiency anemia, unspecified; E66.9 Obesity, unspecified; Z68.32 Body mass index [BMI] 32.0-32.9, adult; R94.31 Abnormal electrocardiogram [ECG] [EKG]; Z79.84 Long term (current) use of oral hypoglycemic drugs; Z88.0 Allergy status to penicillin
CPT/HCPCS: 36415; 36600; 70496; 70498; 71010; 78452; 80048; 80053; 80061; 81003; 82550; 82553; 82803; 82962; 83605; 83690; 83735; 83880; 84134; 84439; 84443; 84484; 85025; 85610; 85730; 87081; 87086; 93005; 93017; 93306; 93880; 93970; 94640; 94664; 96374; G0378; A9500; A9505; J0744; J1644; J1815; J1940; J1956; J2785; J2920; J2930; J3475; J7030; J7040; Q9967